=== PATIENT | female | born 1955 | race Caucasian/White ===

== ENCOUNTER 2025-11-02 15:10 | Outpatient (AMB) | payer OTHER, SELFPAY ==
--- NOTE | 2025-11-02 15:12 | A.PHYSOV_ITS ---
Vital Signs 11/02/25 15:16 Height 5 ft 1 in Weight 130 lb BMI 24.6 Intake Visit Reasons: 3M FUV Intake Note: Patient is a 70 year old female in office today for 3 month medication management visit. Mail Messenger Contractor Required: No Allergies adhesive tape Allergy (Unknown, Verified 11/02/25 15:16) Unknown Latex, Natural Rubber Allergy (Unknown, Verified 10/30/25 10:52) Unknown Penicillins Allergy (Unknown, Verified 10/30/25 10:52) Unknown HPI Comments Details: History of Present Illness The patient is a 70-year-old female presenting for a follow-up visit for chronic pain management. She has a history of chronic bilateral leg pain, which is worse in the left leg than the right, and she relies on a wheelchair for ambulation. Her pain is managed with oxycodone, which she reports is helpful and has improved her quality of life and ability to perform activities of daily living. Her overall condition is stable. She also takes gabapentin, which is prescribed by her primary care provider. She has an ultrasound scheduled for her legs in two weeks to evaluate her circulation, with a follow-up appointment with a vascular specialist the following week. At this time, no surgery has been planned. Pain Description - Location: Bilateral legs, greater on the left than the right. - Interferes with: Ambulation, for which she uses a wheelchair. - Relief: Oxycodone improves her pain, quality of life, and ability to perform activities of daily living. Results [facility] Medical History (Updated 11/02/25 @ 16:09 by Dillon Batista DO) Complex regional pain syndrome I of lower limb Chronic pain syndrome Surgical History (Updated 10/30/25 @ 10:55 by Graciela Quintana MA) History of dktht-bbzuw-juxsjvw bypass (Unknown) History of lumpectomy (Unknown) Social History (Updated 11/02/25 @ 15:20 by Graciela Quintana MA) Alcohol intake: current Alcohol intake frequency: does not drink Patient Tobacco Use Status: Current everyday Tobacco user Use of substances other than those prescribed or required for medical reasons: No Current occupational status: retired Review of Systems Narrative Review of Systems - Constitutional: Denies worsening sedation. - Musculoskeletal: Reports bilateral leg pain, worse on the left. - Gastrointestinal: Reports regular bowel movements; denies any change in bowel habits. - Genitourinary: Denies any change in bladder habits. - Psychiatric: Denies depression or suicidal ideation. Physical Exam Exam Exam: Physical Exam Patient was examined while sitting. Her gait was not really tested. She was able to independently transfer from chair to wheelchair. Neurologically she was intact. I could not appreciate any lower extremity edema or erythema. Vital Signs: BMI result Body Mass Index 24.6 Assessment & Plan Assessment & Plan (1) Chronic pain syndrome: Code(s): G89.4 - Chronic pain syndrome Category: Medical (2) Complex regional pain syndrome I of lower limb: Code(s): G90.529 - Complex regional pain syndrome I of unspecified lower limb Category: Medical Plan Pain Management - Analgesia: The patient reports her medications are helping and her condition is stable. - Activities of Daily Living: Her prescribed oxycodone improves her ability to perform activities of daily living. - Adverse Effects: The patient denies worsening sedation and reports regular bowel movements without any changes to bowel or bladder habits. - Affect: The patient denies depression or suicidal ideation. - Aberrant Drug-Related Behaviors: There are no signs of aberrant behavior; a prescription monitoring report will be checked prior to refill. Plan Patient was informed and verbally consented to the use of an ambient scribe for clinic note documentation during this visit. 1. Chronic Pain The patient's chronic pain is stable on her current regimen. She will continue oxycodone 5/325 mg. A refill will be sent today, but she was advised it cannot be filled until November 19, 2025. A prescription monitoring report will be checked. Follow-up is scheduled for January. 2. Bilateral Leg Pain The patient will proceed with an ultrasound of her legs for circulation in two weeks, followed by a vascular consultation the week after. Management will be determined pending the results of this workup. Discussion Notes I discussed with the patient that her condition appears stable and her medications are effective. I will send a refill for her oxycodone today, as I will be away when it is due for renewal. I advised her that the pharmacy will not be able to fill it before November 19. We discussed her upcoming vascular workup, including a leg ultrasound and specialist consultation, to investigate her circulation issues. I recommended she follow up in the clinic in January. Patient Instructions - Continue to take your pain medications as prescribed. - A prescription for your oxycodone will be sent to your pharmacy today, but you will not be able to pick it up until November 19. - Please check with your pharmacy to make sure they have received the electronic prescription. - Please attend your upcoming appointments for the leg ultrasound and the visit with the vascular specialist. - Please schedule a follow-up appointment to be seen here again in January. Medications: New oxycodone-acetaminophen 5-325 mg Partial fill upon request 1 tab PO TID PRN 84 tabs 0RF pain 28 days G89.4 - Chronic pain syndrome, G90.529 - Complex regional pain syndrome I of unspecified lower limb Coding Level of Care Code Est Pt Level 3 (30427) Complex visit Add On G2211 Diagnoses Chronic pain syndrome G89.4 Complex regional pain syndrome I of lower limb G90.529
[2025-11-02 15:16] VITALS: BMI 24.6
--- OUTSIDE RECORDS SUMMARY | 2025-11-02 21:21 | XMS_ITS | Clinical Summary ---
Author Organization [address] [place] [address] Address [address] [place] [address] Phone Care Team Providers Care Physical Security Specialist Name Role Phone Tyrell Massey MD Primary Care Provider [phone] Allergies Active Allergy Reactions Criticality Noted Date Comments Adhesive Tape-Silicones 06/01/2025 Medical tape Latex 09/07/2018 Penicillins 09/07/2018 Medications oxyCODONE-acet aminophen (PERCOCET) 5-325 mg per tablet Take 1 tablet by mouth every 4 (four) hours. Active rosuvastatin (CRESTOR) 40 mg tablet Take 40 mg by mouth daily. Active calcium carbonate/jazmine min D3 (CALCIUM 600 + D,3, ORAL) Take by mouth. Acti ve lidocaine 0.5% (SOLARCAINE) 0.5 % gel external gel Apply topically. Active sertraline (ZOLOFT) 100 mg tablet Take 100 mg by mouth daily. Active cilostazoL (PLETAL) 100 mg tablet Take 100 mg by mouth 2 times daily. Active clopidogreL (PLAVIX) 75 mg tablet Take 75 mg by mouth daily. Active gabapentin (NEURONTIN) 600 mg tablet Take 1 tablet (600 mg total) by mouth 1 (one) time each day in the morning. Active gabapentin (NEURONTIN) 600 mg tablet Take 2 tablets (1,200 mg total) by mouth at bedtime. Active tiotropium-olo dateroL (Stiolto Respimat) 2.5-2.5 mcg/actuation mist inhaler Inhale 2 puffs by mouth 1 (one) time each day. 4 g 12 5 06/16/20 26 Active nicotine (Nicoderm CQ) 21 mg/[address] 1 patch on the skin 1 (one) time each day at the same time. 14 each 5 Active nicotine (Nicoderm CQ) 14 mg/[address] 1 patch on the skin 1 (one) time each day at the same time. 14 each 5 Active nicotine (Nicoderm CQ) 7 mg/[address] 1 patch on the skin 1 (one) time each day at the same time. 28 each 5 Active nicotine polacrilex (COMMIT) 4 mg lozenge Dissolve 1 lozenge (4 mg total) in the mouth every 2 (two) hours if needed for smoking cessation. 100 lozenge 5 Active metoprolol succinate (TOPROL-XL) 25 mg 24 hr tablet TAKE 1 TABLET BY MOUTH DAILY 90 tablet 1 5 Active ezetimibe (ZETIA) 10 mg tablet TAKE 1 TABLET BY MOUTH DAILY 90 tablet 5 Active naloxone (Narcan) 4 mg/0.1 mL nasal spray Administer 1 each (4 mg total) into affected nostril(s). Give 4 mg (1 spray) into one nostril. May repeat every 2-3 minutes if needed, alternating nostrils, until medical assistance becomes available. Active tiotropium (Spiriva Respimat) 2.5 mcg/actuation inhalation spray Inhale 2 puffs by mouth 1 (one) time each day. Active albuterol HFA (PROAIR HFA ; PROVENTIL HFA ; VENTOLIN HFA) 90 mcg/actuation inhalerIndicat ions:Chronic cough,SOB (shortness of breath),Mucopu rulent chronic bronchitis (CMS/HCC V24, CMS/HCC V28) Inhale 2 puffs by mouth every 6 (six) hours if needed for wheezing. 6.7 g 2 5 10/06/20 26 Active albuterol HFA (PROAIR HFA ; PROVENTIL HFA ; VENTOLIN HFA) 90 mcg/actuation inhaler Inhale 2 puffs by mouth every 6 (six) hours if needed for wheezing. 10/06/20 25 Discontin ued(Alter doris therapy) Active Problems Problem Noted Date Diagnosed Date Bipolar disorder ([facility] V24, [facility] V28) 08/31 Chronic pain 09/24/2023 HLD (hyperlipidemia) 09/24/2023 Assessment & Plan (10/14/2024 2:41 PM EST): She will continue on her current dose of Zetia and rosuvastatin. Opiate dependence, continuous ([facility], [facility]) 09/24/2023 SVT (supraventricular tachycardia) ([facility] V24) 09/24/2023 Assessment & Plan (10/17/2025 1:40 PM EST): Orders: ECG 12 lead Assessment & Plan (10/14/2024 2:41 PM EST): Denies perception of recurrence of arrhythmia. The only reason she knew that she was in SVT is because she had been taking her blood pressure. We did discuss vagal maneuvers should she experience episode of SVT again. In light of her being asymptomatic during her arrhythmia, I am going to update 24-hour monitor to further evaluate for burden. Also will order echocardiogram to further evaluate LVEF and whether or not SVT has impacted her pumping function. Patient continues to smoke and drink coffee. She admits she does not stay hydrated. We again discussed the importance of being mindful of her caffeine and alcohol intake as well as her hydration status. Orders: ECG 12 lead Transthoracic echocardiogram (TTE) complete with PRN contrast, bubble, strain, and 3D order panel; Future perflutren lipid microsphere (DEFINITY) 1.3 mL in sodium chloride 0.9% 8.7 mL injection Cardiac holter monitor (<= 48 hours); Future PVD (peripheral vascular disease) ([facility] V24) 08/06/2018 Assessment & Plan (10/17/2025 1:51 PM EST): Assessment & Plan (10/14/2024 2:41 PM EST): On cilostazol. Continues to follow closely with vascular services. Patient historically has had a chairlift at home. Unfortunately, this is no longer in working order. Due to the age of the machine, she is unable to get parts. Patient is unable to walk long distances and has used a wheelchair to get into our office today. She is unable to climb stairs while carrying items such as groceries as her legs will give out in light of her significant PVD. Orders: perflutren lipid microsphere (DEFINITY) 1.3 mL in sodium chloride 0.9% 8.7 mL injection History of DVT (deep vein thrombosis) Encounters Date Type Department Care Team Description 10/17/2025 1:00 PM EST Office Visit [facility] - [facility] [address] [facility] [address] [place] [phone] Arcadio Justice MD SVT (supraventricular tachycardia) ([facility] V24) (Primary Dx); Coronary artery disease due to calcified coronary lesion; PVD (peripheral vascular disease) ([facility] V24) 10/06/2025 11:30 AM EST Office Visit Pulmonology - [place] [address] [facility] [address] [place] [address] Nirali Jones MD Chronic cough (Primary Dx); SOB (shortness of breath); Mucopurulent chronic bronchitis ([facility] V24, [facility] V28) 09/27/2025 Telephone Gastroenterology - [address] [place] [address] [address] [place] [phone] Eric Ramos MD 09/15/2025 Telephone Pulmonology - [place] [address] [facility] [address] [place] [phone] Sharee Vargas MA from Last 3 Months Medical History Medical History Date Comments PVD (peripheral vascular disease) ([facility] V24) 08/06/2018 Hyperlipidemia Sleep apnea PAD (peripheral artery disease) ([facility] V24) Glaucoma Family History Medical History Relation Name Comments Breast cancer Mother Ovarian cancer Mother palpitations Mother Relation Name Status Comments Mother Social History Tobacco Use Types Packs/Day Years Used Date Smoking Tobacco: Every Day Cigarettes Smokeless Tobacco: Never Tobacco Cessation:Ready to Q uit: Not Asked; Counseling Given: Not Answered Comments:Smokes 10-15 cigarettes daily Alcohol Use Standard Drinks/Week Comments Not Currently 0 (1 standard drink = 0.6 oz pur e alcohol) Interpersonal Safety Answer Date Record ed Physical Abuse Unrecognized value 06/07/2025 Verbal Abuse Unrecognized value 06/07/2025 Comments No Sex and Gender Information Value Date Recorded Sex Assigned at Female 05/29/2025 3:37 PM EDT Legal Sex Female 1:53 PM EST Gender Identity Female 06/07/2025 8:20 AM EDT Sexual Orientation Choose not to disclose 2024 8:20 AM EDT Obstetrics History Last Filed Vital Signs Vital Sign Reading Time Taken Comments Blood Pressure 130/70 10/17/2025 1:06 PM EST Pulse 58 10/17/2025 1:06 PM EST Temperature 36.7 C (98.1 F) 06/16/2025 11:06 AM EDT Respiratory Rate 18 06/07/2025 11:25 AM EDT Oxygen Saturation 93% 10/17/2025 1:06 PM EST Inhaled Oxygen Concentration - - Weight 59 kg (130 lb) 10/17/2025 1:06 PM EST Height 154.9 cm (5' 1 ) 10/17/2025 1:06 PM EST Body Mass Index 24.56 10/17/2025 1:06 PM EST Plan of Treatment Upcoming Encounters Date Type Department Care Team (Late st Contact Info) Description 11/06/2025 1:45 PM EST Appointment [facility] CT Scan [address] [place] [phone] 11/16/2025 1:30 PM EST Ancillary Procedure [facility] - [facility] [address] [facility] [address] [place] [address] 11/24/2025 11:30 AM EST Office Visit Vascular Surgery - [place] [address] [facility] [address] [place] [phone] Selvin Damico MD [address] [place] [phone] Health Maintenance Due Date Last Done Comments Colorectal Cancer Screening: Colonoscopy 1955 Hepatitis A Vaccines (1 of 2 - Risk 2-dose series) 1972 Cholesterol Screening (Lipid Panel) 11/08/2022 Hepatitis C Screening 11/08/2022 Medicare Annual Wellness Visit 11/08/2022 Social Influencers of Health Screening 11/08/2022 Depression Screening 11/30/2024 COVID-19 Vaccine ( season) 2025 09/30/2024, 09/11/2023, 10/02/2022, Additional history exists Breast Cancer Screening 10/28/2025 10/28/2023 Hypertension/CHF/CAD Annual BMP Blood Test 06/05/2026 06/05/2025 Falls Risk Assessment 06/07/2026 06/07/2025 Osteoporosis Screening (Bone Density Screening) 03/18/2028 03/18/2018 DTaP,Tdap,and Td Vaccines (3 - Td or Tdap) 10/30/2033 10/30/2023, 04/03/2014 Pneumococcal Vaccine: 50+ Years Completed 09/12/2021, 08/17/2020, 09/26/2019, Additional history exists RSV Immunization Adult Patients Completed 10/05/2023 Zoster Vaccines Completed 10/30/2023, 06/30, 06/01/2017 Influenza Vaccine Completed 09/26/2025, , 09/11/2023, Additional history exists HIB Vaccines Aged Out No longer eligi ble based on patient's age to complete this topic HPV Vaccines Aged Out No longer eligi ble based on patient's age to complete this topic Hepatitis B Vaccines Aged Out No long er eligible based on patient's age to complete this topic IPV Vaccines Aged Out No longer eligi ble based on patient's age to complete this topic MMR Vaccines Aged Out No longer eligi ble based on patient's age to complete this topic Meningococcal ACWY Vaccine Aged Out N o longer eligible based on patient's age to complete this topic Meningococcal B Vaccine Aged Out No l onger eligible based on patient's age to complete this topic RSV Immunization Patients Under 20 months Aged Out No longer eligible based on patient's age to complete this topic Varicella Vaccines Aged Out No longer eligible based on patient's age to complete this topic Procedures Procedure Name Priority Date/Time Associated Diagnosis Comments ECG 12-LEAD Routine 10/17/2025 1:11 PM EST SVT (supraventricular tachycardia) (CMS/HCC V24) BASIC METABOLIC PANEL Routine 06/05/2025 2:40 PM EDT Chronic cough from Last 3 Months or Most Recently Relevant to Health Maintenance Results * ECG 12 lead (10/17/2025 1:11 PM EST) Ventricular Rate ECG 58 BPM GEMUSE Atrial Rate 58 BPM GEMUSE P-R Interval 164 ms GEMUSE QRS Duration 82 ms GEMUSE Q-T Interval 452 ms GEMUSE QTc 443 ms GEMUSE P Wave [place] 75 degrees GEMUSE R [place] -18 degrees GEMUSE T [place] 49 degrees GEMUSE ECG Interpretation Sinus bradycardia with sinus arrhythmia Septal infarct (cited on or before 17-OCT-2025) Abnormal ECG When compared with ECG of 14-OCT-2024 13:37, No significant change was found Confirmed by MD Vinh, Arcadio ([id number]) on 10/17/2025 2:08:20 PM GEMUSE 10/17/2025 1:11 PM EST 10/17/2025 2:08 PM EST us Arcadio Justice MD ECG ORDERABLES Final Res ult GEMUSE * Basic metabolic panel (06/05/2025 2:40 PM EDT) Sodium 138 133 - 145 mmol/L LAB CHEMISTRY METHOD 06/05/2025 3:46 PM EDT [facility] Potassium 3.5 3.5 - 5.5 mmol/L LAB CHEMISTRY METHOD 06/05/2025 3:46 PM EDT [facility] Chloride 107 96 - 110 mmol/L LAB CHEMISTRY METHOD 06/05/2025 3:46 PM EDT [facility] CO2 23 21 - 32 mmol/L LAB CHEMISTRY METHOD 06/05/2025 3:46 PM EDT [facility] Anion Gap 8 3 - 11 LAB CHEMISTRY METHOD 06/05/2025 3:46 PM EDT [facility] Glucose 92 70 - 100 mg/dL LAB CHEMISTRY METHOD 06/05/2025 3:46 PM EDT [facility] BUN 15 5 - 25 mg/dL LAB CHEMISTRY METHOD 06/05/2025 3:46 PM EDT [facility] Creatinine 0.72 0.50 - 1.10 mg/dL LAB CHEMISTRY METHOD 06/05/2025 3:46 PM EDT [facility] eGFR 89 >=60 mL/min/1. 73m2 LAB CHEMISTRY METHOD 06/05/2025 3:46 PM EDT [facility] Comment:Calculation based on the Chronic Kidney Disease Epidemiology Collaboration (CKD-EPI) equation refit without adjustment for race. BUN/Creatinine Ratio 20.8 LAB CHEMISTRY METHOD 06/05/2025 3:46 PM EDT [facility] Calcium 9.5 8.5 - 10.5 mg/dL LAB CHEMISTRY METHOD 06/05/2025 3:46 PM EDT [facility] Blood Venous blood specimen / Unknown Venipuncture / Unknown 06/05/2025 2:40 PM EDT 06/05/2025 2:49 PM EDT Nirali Jones MD LAB BLOOD ORDERABLES Final Result [facility] [address] [place] [address], from Last 3 Months or Most Recently Relevant to Health Maintenance Insurance [employer] [address] [place] [address] MEDICAID [place] Advance Directives * Full Code - Default (Latest Code Status on File) Date Activated Date Inactivated Comments 06/07/2025 9:04 AM 06/07/2025 2:12 PM This is order is used when code status has not been discussed with the patient, or code status is otherwise unknown/unconfirmed To update the patient's code status, place a code status order. Do not modify or discontinue any currently active code status orders. Care Teams Physical Security Specialist Relationship Specialty Start Date End Date Tyrell Massey MD [address] [facility] [address] [place] [phone] PCP - General 09/20/21
--- OUTSIDE RECORDS SUMMARY | 2025-11-02 21:22 | XMS_ITS | Data Portability ---
Author Organization [facility], Main Office Address [address] [facility] [address] [facility] [place] [address] Care Team Providers Care Certified Lactation Educator Name Role Phone GARRETT GUTIERREZ Pecan Picker [employer] Heat Pump Installer PRANAV GARRETT Wood Stainer [facility] Heating Element Repairer OCTAVIA GARZA Vascular Surgeon SHEREEN MASSEY Primary Care Provider S V PAIN MANAGEMENT Pain Management [phone] Assessment Encounter Date Assessment Date Assessment LastModified by Organization Details LastModified Time 09/04/2023 09/04/2023 This service was provided using telemedicine. Patient consented to video & audio visit Patient was located in the [facility]. Provider was located in the office. No other persons participated in the telemedicine visit except for the patient unless otherwise indicated here. Total time of visit was 20 minutes. [email or web address] Not available 09/04/2023 16:44:22 08/12/2024 08/12/2024 Discussed with patient the signs/symptoms warranted for a return to office visit and/or an ER visit. Patient understood and agreed with the plan. Not available 08/12/2024 13:35:48 Plan of Treatment Reminders Order Date Submit Date Provider Last Modified By Organization Details Last Modified Time Details Appointments None recor ded. Lab CBC w/ auto diff 2024 025 [email or web address] [facility], [address] [facility] [facility], [place], [address], 5 12:36:56 TSH, ultra -sens itive , serum [address] [facility], [address], [address], [place], [address], 5 12:36:56 lipid panel , serum 2024 025 [email or web address] [facility], [address], [address], [place], [address], 5 13:52:47 CMP, serum or plasm a 2024 025 [email or web address] [facility], [address], [address], [place], [address], 5 12:36:56 vitam in D, 25-hy droxy , total , serum [address] [facility], [address], [address], [place], [address], 5 12:36:56 urina lysis compl ete, refle x cultu re 2024 025 [email or web address] (Centralized Electronic Ordering - All Locations), Patient Can Go To The Location Of Their Choice, [id number] 12:36:57 vitam in D, 25-hy droxy , total , serum 2023 024 MALORIE [facility], [address], [address], [place], [address], 4 12:06:53 lipid panel , serum 2023 024 MALORIE [facility], [address], [address], [place], [address], 4 12:06:52 CMP, serum or plasm a 2023 024 MALORIE [facility], [address], [address], [place], [address], 4 12:06:52 CBC w/ auto diff 2023 024 MALORIE [facility], [address], [address], [place], [address], 4 12:06:49 TSH, ultra -sens itive , serum 2023 024 MALORIE [facility], [address], [address], [place], [address], 4 12:06:54 lipid panel , serum 2022 023 MALORIE [facility], [address], [address], [place], [address], 3 19:53:48 CMP, serum or plasm a 2022 023 MALORIE [facility], [address], [address], [place], [address], 3 19:53:47 CBC w/ auto diff 2022 023 MALORIE [facility], [address], [address], [place], [address], 3 19:53:56 TSH, serum or plasm a 2022 023 MALORIE [facility], [address], [address], [place], [address], 3 20:04:47 magne sium, serum or plasm a 2022 023 MALORIE [facility], [address], [address], [place], [address], 3 19:53:49 Referral physi nino thera pist refer ral - At risk for falli ng 2024 025 [email or web address] Not available 14:18:12 gastr louann torrezog ist refer ral - Needs colon cance r tyee cheko 2024 025 [email or web address] [facility], [address] [place], [address], 5 14:19:05 gastr louann torrezog ist refer ral - Needs colon cance r scree cheko 2023 024 [email or web address] [facility] , [address], [facility], [place], [address], 4 15:05:08 physi nino thera pist refer ral - At risk for falli ng 2022 023 [email or web address] [facility], [address], [place], [address], 3 15:51:[address] refer ral 2022 023 [email or web address] Not available 3 14:14:29 Procedures colon oscop y tien cheko (PROC ) 2024 025 [email or web address] [facility], [address] [place], [address], 5 14:27:16 colon oscop y scree cheko (PROC ) 2023 024 In-Office Order, Internal Use Only DO Not Attach Compendium DO Not Attach Compendium, Do Not Delete/merge, [id number] 4 14:48:31 Surgeries None recor ded. Imaging bone densi ty 2024 025 [facility], [address], [address], [place], [address], 5 12:36:57 MAMMO , scree cheko, bilat eral - Perfo rm Diagn ostic Mammo gram and Breas t Ultra sound if neede d / Perfo rm Ultra sound Guide d Aspir ation and/o r Breas t Biops y if warra nted 2024 025 [email or web address] [facility], [address], [address], [place], [address], 5 12:36:56 elect rocar diogr am 2023 024 [email or web address] In-Office Order, Internal Use Only DO Not Attach Compendium DO Not Attach Compendium, Do Not Delete/merge, [id number] 4 13:55:53 bone densi ty 2022 023 [email or web address] os [facility], [address], [address], [place], [address], 3 16:58:32 MAMMO , scree cheko, bilat eral 2022 023 [email or web address] os [facility], [address], [address], [place], [address], 4 12:04:13 Medication Orders None recor ded. Patient TargetsNo targets recorded. Patient Instructions Encounter Date Encounter Id Patient Instructions Last Modified By Organization Details Last Modified Time 07/03/2023 [id number] advance care planning: care instructions [email or web address] Not available 07/03/2023 13:50:28 well visit, over 65: care instructions [email or web address] Not available 07/03/2023 13:50:27 preventing falls : care instructions [email or web address] Not available 07/03/2023 13:50:27 medicare prevent shawn services guide (female 74yrs and under) [email or web address] Not available 07/03/2023 13:50:27 07/05/2024 [id number] advance care planning: care instructions [email or web address] Not available 07/05/2024 13:37:49 learning about c olon cancer ckokar Not available 07/05/2024 13:37:49 well visit, over 65: care instructions [email or web address] Not available 07/05/2024 13:37:49 preventing falls : care instructions ckokar Not available 07/05/2024 13:37:50 medicare prevent shwan services guide (female 74yrs and under) [email or web address] Not available 07/05/2024 13:37:49 08/12/2024 [id number] supraventricular tachycardia: care instructions Not available 08/12/2024 13:51:00 09/26/2025 [id number] advance care planning: care instructions ckokar Not available 09/26/2025 12:36:56 complex regional pain syndrome: care instructions ckokar Not available 09/26/2025 12:36:57 preventing falls : care instructions [email or web address] Not available 09/26/2025 12:36:56 well visit, over 65: care instructions ckokar Not available 09/26/2025 12:36:56 medicare prevent shawn services guide (female 74yrs and under) [email or web address] Not available 09/26/2025 12:36:56 bladder training : care instructions [email or web address] Not available 09/26/2025 12:36:57 kegel exercises: care instructions ckokar Not available 09/26/2025 12:36:57 Stress Incontine nce: Care Instructions [email or web address] Not available 09/26/2025 12:36:57 Urge Incontinenc e: Care Instructions [email or web address] Not available 09/26/2025 12:36:57 learning about c olon cancer guzman Not available 09/26/2025 12:36:56 Reason for Referral Physical Therapist Referral for Adult health examination At risk for falling Referring Physician: [facility], Encounter Date: 07/03/2023 Psychologist Referral for Ma ayesha depression single episode, in partial remission Referring Physician: [facility], Encounter Date: 07/03/2023 Heating Element Repairer Referral for Screening for malignant neoplasm of colon Needs colon cancer screening Referring Physician: Family Kalani Morrison, Encounter Date: 07/05/2024 Physical Therapist Referral for Adult health examination At risk for falling Referring Physician: Family Kalani Morrison, Encounter Date: 09/26/2025 Heating Element Repairer Referral for Screening for malignant neoplasm of colon Needs colon cancer screening Referring Physician: Shereen Massey, Family Medicine, Encounter Date: 09/26/2025 Results Created Date Observation Date Name Description Value Unit Range Abnormal Flag Note LastModifiedBy Organization Detail LastModifiedTime 07/03/2007/03/2023 COMPR EHENS SHAWN METAB OLIC PANL glucose 94 mg/dL (70-99 ) Not Available [facility] (Centralized Electronic Ordering - All Locations) Patient Can Go To The Location Of Their Choice, 07/03/2023 19:53:46 07/03/2007/03/2023 COMPR EHENS SHAWN METAB OLIC PANL BUN 11 mg/dL (8-23) Not Available [facility] (Centralized Electronic Ordering - All Locations) Patient Can Go To The Location Of Their Choice, 07/03/2023 19:53:46 07/03/2007/03/2023 COMPR EHENS SHAWN METAB OLIC PANL creatinine 0.6 mg/dL (0.5-1 .0) Not Available [facility] (Centralized Electronic Ordering - All Locations) Patient Can Go To The Location Of Their Choice, 07/03/2023 19:53:46 07/03/2007/03/2023 COMPR EHENS SHAWN METAB OLIC PANL sodium 140 mmol/ L (133-1 45) Not Available [facility] (Centralized Electronic Ordering - All Locations) Patient Can Go To The Location Of Their Choice, 07/03/2023 19:53:46 07/03/2007/03/2023 COMPR EHENS SHAWN METAB OLIC PANL potassium 4.1 mmol/ L (3.6-5 .2) Not Available [facility] (Centralized Electronic Ordering - All Locations) Patient Can Go To The Location Of Their Choice, 07/03/2023 19:53:46 07/03/2007/03/2023 COMPR EHENS SHAWN METAB OLIC PANL chloride 103 mmol/ L (98-10 7) Not Available [facility] (Centralized Electronic Ordering - All Locations) Patient Can Go To The Location Of Their Choice, 07/03/2023 19:53:46 07/03/2007/03/2023 COMPR EHENS SHAWN METAB OLIC PANL bicarbonate 23 mmol/ L (22-29 ) Not Available [facility] (Centralized Electronic Ordering - All Locations) Patient Can Go To The Location Of Their Choice, 07/03/2023 19:53:46 07/03/2007/03/2023 COMPR EHENS SHAWN METAB OLIC PANL anion gap 14 (4-17) Not Available [facility] (Centralized Electronic Ordering - All Locations) Patient Can Go To The Location Of Their Choice, 07/03/2023 19:53:46 07/03/2007/03/2023 COMPR EHENS SHAWN METAB OLIC PANL albumin 4.4 gm/dL (3.4-4 .8) Not Available [facility] (Centralized Electronic Ordering - All Locations) Patient Can Go To The Location Of Their Choice, 07/03/2023 19:53:46 07/03/2007/03/2023 COMPR EHENS SHAWN METAB OLIC PANL calcium 10.0 mg/dL (8.6-1 0.5) Not Available [facility] (Centralized Electronic Ordering - All Locations) Patient Can Go To The Location Of Their Choice, 07/03/2023 19:53:46 07/03/2007/03/2023 COMPR EHENS SHAWN METAB OLIC PANL bilirubin,to kofi 0.3 mg/dL (0-1.2 ) Not Available [facility] (Centralized Electronic Ordering - All Locations) Patient Can Go To The Location Of Their Choice, 07/03/2023 19:53:46 07/03/2007/03/2023 COMPR EHENS SHAWN METAB OLIC PANL total protein 7.6 gm/dL (6.2-8 .2) Not Available [facility] (Centralized Electronic Ordering - All Locations) Patient Can Go To The Location Of Their Choice, 07/03/2023 19:53:46 07/03/2007/03/2023 COMPR EHENS SHAWN METAB OLIC PANL Ag ratio 1.4 Not Available [facility] (Centralized Electronic Ordering - All Locations) Patient Can Go To The Location Of Their Choice, 07/03/2023 19:53:46 07/03/2007/03/2023 COMPR EHENS SHAWN METAB OLIC PANL AST 16 U/L (0-32) Not Available [facility] (Centralized Electronic Ordering - All Locations) Patient Can Go To The Location Of Their Choice, 07/03/2023 19:53:46 07/03/2007/03/2023 COMPR EHENS SHAWN METAB OLIC PANL alk phos 121 U/L (35-10 4) high Not Available [facility] (Centralized Electronic Ordering - All Locations) Patient Can Go To The Location Of Their Choice, 07/03/2023 19:53:46 07/03/2007/03/2023 COMPR EHENS SHAWN METAB OLIC PANL ALT 9 U/L (0-33) Not Available [facility] (Centralized Electronic Ordering - All Locations) Patient Can Go To The Location Of Their Choice, 07/03/2023 19:53:46 07/03/2007/03/2023 COMPR EHENS SHAWN METAB OLIC PANL estimated GFR creatinine 96 mL/mi n/1.7 3_M2 Creat inine based estim ated glome rular filtr ation (eGFR ) in adult s is calcu lated using the Natio nal Kidne y Found ation recom justice d 2020 CKD-E PI equat ion. Estim ates GFR from serum creat inine , age and sex. Not Available [facility] (Centralized Electronic Ordering - All Locations) Patient Can Go To The Location Of Their Choice, 07/03/2023 19:53:46 07/03/2007/03/2023 LIPID PANEL cholesterol, total 156 mg/dL (<200) Not Available [facility] ([facility] Order[facility] - All Locations) Patient Can Go To The Location Of Their Choice, 07/03/2023 19:53:48 07/03/2007/03/2023 LIPID PANEL triglyceride 131 mg/dL (<150) Not Available [facility] ([facility] - All Locations) Patient Can Go To The Location Of Their Choice, 07/03/2023 19:53:48 07/03/2007/03/2023 LIPID PANEL HDL chol 50 mg/dL (>39) Not Available [facility] ([facility] Electronic Ordering - All Locations) Patient Can Go To The Location Of Their Choice, 07/03/2023 19:53:48 07/03/2007/03/2023 LIPID PANEL LDL cholesterol, calculated 80 mg/dL (0-130 ) Not Available [facility] ([facility] Electronic Ordering - All Locations) Patient Can Go To The Location Of Their Choice, 07/03/2023 19:53:48 07/03/2007/03/2023 LIPID PANEL non HDL cholesterol (calc) 106 mg/dL (<160) Not Available [facility] ([facility] Order[facility] - All Locations) Patient Can Go To The Location Of Their Choice, 07/03/2023 19:53:48 07/03/2007/03/2023 MAGNE SIUM magnesium 2.5 mg/dL (1.6-2 .3) high Not Available [facility] ([facility] Electronic Ordering - All Locations) Patient Can Go To The Location Of Their Choice, 07/03/2023 19:53:49 07/03/2007/03/2023 COMPL ETE CBC WITH DIFF WBC 11.7 K/mm3 (4.0-1 1.0) high Not Available [facility] ([facility] Electronic Ordering - All Locations) Patient Can Go To The Location Of Their Choice, 07/03/2023 19:53:56 07/03/2007/03/2023 COMPL ETE CBC WITH DIFF RBC 5.12 M/mm3 (4.20- 5.40) Not Available [facility] ([facility] Electronic Ordering - All Locations) Patient Can Go To The Location Of Their Choice, 07/03/2023 19:53:56 07/03/2007/03/2023 COMPL ETE CBC WITH DIFF HGB 15.4 gm/dL (11.7- 15.5) Not Available [facility] ([facility] Ordering - All Locations) Patient Can Go To The Location Of Their Choice, 07/03/2023 19:53:56 07/03/2007/03/2023 COMPL ETE CBC WITH DIFF HCT 48.0 % (35.7- 45.8) high Not Available [facility] ([facility] Ordering - All Locations) Patient Can Go To The Location Of Their Choice, 07/03/2023 19:53:56 07/03/2007/03/2023 COMPL ETE CBC WITH DIFF MCV 93.8 fL (80.0- 100.0) Not Available [facility] ([facility] Ordering - All Locations) Patient Can Go To The Location Of Their Choice, 07/03/2023 19:53:56 07/03/2007/03/2023 COMPL ETE CBC WITH DIFF MCH 30.1 pg (27.0- 34.0) Not Available [facility] ([facility] Ordering - All Locations) Patient Can Go To The Location Of Their Choice, 07/03/2023 19:53:56 07/03/2007/03/2023 COMPL ETE CBC WITH DIFF MCHC 32.1 g/dL (33.0- 37.0) low Not Available [facility] ([facility] Order[facility] - All Locations) Patient Can Go To The Location Of Their Choice, 07/03/2023 19:53:56 07/03/2007/03/2023 COMPL ETE CBC WITH DIFF plt 391 K/mm3 (150-4 60) Not Available [facility] ([facility] Ordering - All Locations) Patient Can Go To The Location Of Their Choice, 07/03/2023 19:53:56 07/03/2007/03/2023 COMPL ETE CBC WITH DIFF RDW-SD 51.2 fL (<47.0 ) high Not Available [facility] ([facility] Ordering - All Locations) Patient Can Go To The Location Of Their Choice, 07/03/2023 19:53:56 07/03/2007/03/2023 COMPL ETE CBC WITH DIFF MPV 9.1 fL (9.4-1 2.4) low Not Available [facility] ([facility] Ordering - All Locations) Patient Can Go To The Location Of Their Choice, 07/03/2023 19:53:56 07/03/2007/03/2023 COMPL ETE CBC WITH DIFF automated NRBC 0.0 #/100 _WBC' s Not Available [facility] ([facility] Ordering - All Locations) Patient Can Go To The Location Of Their Choice, 07/03/2023 19:53:56 07/03/2007/03/2023 COMPL ETE CBC WITH DIFF abs. NRBC 0.0 K/mm3 Not Available [facility] ([facility] Order[facility] - All Locations) Patient Can Go To The Location Of Their Choice, 07/03/2023 19:53:56 07/03/2007/03/2023 COMPL ETE CBC WITH DIFF neut # 7.5 K/mm3 (1.3-7 .0) high Not Available [facility] ([facility] Order[facility] - All Locations) Patient Can Go To The Location Of Their Choice, 07/03/2023 19:53:56 07/03/2007/03/2023 COMPL ETE CBC WITH DIFF lymph # 3.3 K/mm3 (0.8-3 .1) high Not Available [facility] ([facility] Order[facility] - All Locations) Patient Can Go To The Location Of Their Choice, 07/03/2023 19:53:56 07/03/2007/03/2023 COMPL ETE CBC WITH DIFF mono# 0.7 K/mm3 (0.4-0 .9) Not Available [facility] ([facility] Order[facility] - All Locations) Patient Can Go To The Location Of Their Choice, 07/03/2023 19:53:56 07/03/2007/03/2023 COMPL ETE CBC WITH DIFF eo # 0.1 K/mm3 (0.0-0 .4) Not Available [facility] ([facility] Order[facility] - All Locations) Patient Can Go To The Location Of Their Choice, 07/03/2023 19:53:56 07/03/2007/03/2023 COMPL ETE CBC WITH DIFF baso # 0.1 K/mm3 (0.0-0 .1) Not Available [facility] ([facility] Order[facility] - All Locations) Patient Can Go To The Location Of Their Choice, 07/03/2023 19:53:56 07/03/2007/03/2023 COMPL ETE CBC WITH DIFF abs. imm gran 0.0 K/mm3 Not Available [facility] ([facility] - All Locations) Patient Can Go To The Location Of Their Choice, 07/03/2023 19:53:56 07/03/2007/03/2023 COMPL ETE CBC WITH DIFF neut 64.2 % (44-76 ) Not Available [facility] ([facility] Order[facility] - All Locations) Patient Can Go To The Location Of Their Choice, 07/03/2023 19:53:56 07/03/2007/03/2023 COMPL ETE CBC WITH DIFF lymph 28.1 % (15-43 ) Not Available [facility] ([facility] Order[facility] - All Locations) Patient Can Go To The Location Of Their Choice, 07/03/2023 19:53:56 07/03/2007/03/2023 COMPL ETE CBC WITH DIFF monocyte 5.8 % (4.5-1 0.5) Not Available [facility] ([facility] Order[facility] - All Locations) Patient Can Go To The Location Of Their Choice, 07/03/2023 19:53:56 07/03/2007/03/2023 COMPL ETE CBC WITH DIFF eo 0.9 % (0-6) Not Available [facility] ([facility] Order[facility] - All Locations) Patient Can Go To The Location Of Their Choice, 07/03/2023 19:53:56 07/03/2007/03/2023 COMPL ETE CBC WITH DIFF baso 0.7 % (0-2) Not Available [facility] ([facility] - All Locations) Patient Can Go To The Location Of Their Choice, 07/03/2023 19:53:56 07/03/2007/03/2023 COMPL ETE CBC WITH DIFF imm gran 0.3 % Not Available [facility] ([facility] Order[facility] - All Locations) Patient Can Go To The Location Of Their Choice, 07/03/2023 19:53:56 07/03/2007/03/2023 TSH WITH REFLE X TO FT4 TSH 2.16 uIU/m L (0.4-4 .2) Not Available [facility] ([facility] - All Locations) Patient Can Go To The Location Of Their Choice, 07/03/2023 20:04:47 07/05/2007/06/2024 CBC WITH DIFFE RENTI AL/PL ATELE T WBC 11.6 x10e3 /uL 3.4-10 .8 above high normal Not Available [facility] ([facility]) [address] [facility], [place], [address], 07/06/2024 12:06:49 07/05/20 24 07/06/2024 CBC WITH DIFFE RENTI AL/PL ATELE T RBC 4.53 x10e6 /uL 3.77-5 .28 normal Not Available [facility] ([facility]) [address] [place], [address], 07/06/2024 12:06:49 07/05/20 24 07/06/2024 CBC WITH DIFFE RENTI AL/PL ATELE T hemoglobin 14.6 g/dL 11.1-1 5.9 normal Not Available [facility] ([facility]) [address] [place], [address], 07/06/2024 12:06:49 07/05/20 24 07/06/2024 CBC WITH DIFFE RENTI AL/PL ATELE T hematocrit 43.3 % 34.0-4 6.6 normal Not Available [facility] ([facility]) [address] [place], [address], 07/06/2024 12:06:49 07/05/20 24 07/06/2024 CBC WITH DIFFE RENTI AL/PL ATELE T MCV 96 fL 79-97 normal Not Available [facility] ([facility]) [address] [place], [address], 07/06/2024 12:06:49 07/05/20 24 07/06/2024 CBC WITH DIFFE RENTI AL/PL ATELE T MCH 32.2 pg 26.6-3 3.0 normal Not Available [facility] ([facility]) [address] [place], [address], 07/06/2024 12:06:49 07/05/20 24 07/06/2024 CBC WITH DIFFE RENTI AL/PL ATELE T MCHC 33.7 g/dL 31.5-3 5.7 normal Not Available [facility] ([facility]) [address] [place], [address], 07/06/2024 12:06:49 07/05/20 24 07/06/2024 CBC WITH DIFFE RENTI AL/PL ATELE T RDW 13.1 % 11.7-1 5.4 Not Available [facility] ([facility]) [address] [facility], [place], [address], 07/06/2024 12:06:49 07/05/20 24 07/06/2024 CBC WITH DIFFE RENTI AL/PL ATELE T platelets 351 x10e3 /uL 150-45 0 normal Not Available [facility] ([facility]) [address] [facility], [place], [address], 07/06/2024 12:06:49 07/05/20 24 07/06/2024 CBC WITH DIFFE RENTI AL/PL ATELE T neutrophils 71 % not estab. normal Not Available [facility] ([facility]) [address] [facility], [place], [address], 07/06/2024 12:06:49 07/05/20 24 07/06/2024 CBC WITH DIFFE RENTI AL/PL ATELE T lymphs 22 % not estab. normal Not Available [facility] ([facility]) [address] [facility], [place], [address], 07/06/2024 12:06:49 07/05/20 24 07/06/2024 CBC WITH DIFFE RENTI AL/PL ATELE T monocytes 6 % not estab. normal Not Available [facility] ([facility]) [address] [facility], [place], [address], 07/06/2024 12:06:49 07/05/20 24 07/06/2024 CBC WITH DIFFE RENTI AL/PL ATELE T eos 1 % not estab. normal Not Available [facility] ([facility]) [address] [facility], [place], [address], 07/06/2024 12:06:49 07/05/20 24 07/06/2024 CBC WITH DIFFE RENTI AL/PL ATELE T basos 0 % not estab. normal Not Available [facility] ([facility]) [address] [place], [address], 07/06/2024 12:06:49 07/05/20 24 07/06/2024 CBC WITH DIFFE RENTI AL/PL ATELE T immature cells CIVIL STRUCTURAL ENGINEER Not Available [facility] ([facility]) [address] [place], [address], 07/06/2024 12:06:49 07/05/20 24 07/06/2024 CBC WITH DIFFE RENTI AL/PL ATELE T neutrophils (absolute) 8.2 x10e3 /uL 1.4-7. 0 above high normal Not Available [facility] ([facility]) [address] [place], [address], 07/06/2024 12:06:49 07/05/20 24 07/06/2024 CBC WITH DIFFE RENTI AL/PL ATELE T lymphs (absolute) 2.6 x10e3 /uL 0.7-3. 1 normal Not Available [facility] ([facility]) [address] [place], [address], 07/06/2024 12:06:49 07/05/20 24 07/06/2024 CBC WITH DIFFE RENTI AL/PL ATELE T monocytes(ab solute) 0.7 x10e3 /uL 0.1-0. 9 normal Not Available [facility] ([facility]) [address] [place], [address], 07/06/2024 12:06:49 07/05/20 24 07/06/2024 CBC WITH DIFFE RENTI AL/PL ATELE T eos (absolute) 0.1 x10e3 /uL 0.0-0. 4 normal Not Available [facility] ([facility]) [address] [place], [address], 07/06/2024 12:06:49 07/05/20 24 07/06/2024 CBC WITH DIFFE RENTI AL/PL ATELE T baso (absolute) 0.1 x10e3 /uL 0.0-0. 2 normal Not Available [facility] ([facility]) [address] [facility], [place], [address], 07/06/2024 12:06:49 07/05/20 24 07/06/2024 CBC WITH DIFFE RENTI AL/PL ATELE T immature granulocytes 0 % not estab. Not Available [facility] ([facility]) [address] [facility], [place], [address], 07/06/2024 12:06:49 07/05/20 24 07/06/2024 CBC WITH DIFFE RENTI AL/PL ATELE T immature grans (abs) 0.0 x10e3 /uL 0.0-0. 1 Not Available [facility] ([facility]) [address] [facility], [place], [address], 07/06/2024 12:06:49 07/05/20 24 07/06/2024 CBC WITH DIFFE RENTI AL/PL ATELE T NRBC CIVIL STRUCTURAL ENGINEER Not Available [facility] ([facility]) [address] [facility], [place], [address], 07/06/2024 12:06:49 07/05/20 24 07/06/2024 CBC WITH DIFFE RENTI AL/PL ATELE T hematology comments: CIVIL STRUCTURAL ENGINEER Not Available [facility] ([facility]) [address] [facility], [place], [address], 07/06/2024 12:06:49 07/05/20 24 07/06/2024 COMP. METAB OLIC PANEL (14) glucose 93 mg/dL 70-99 normal Not Available [facility] ([facility]) [address] [facility], [place], [address], 07/06/2024 12:06:51 07/05/20 24 07/06/2024 COMP. METAB OLIC PANEL (14) BUN 16 mg/dL 8-27 normal Not Available [facility] ([facility]) [address] [place], [address], 07/06/2024 12:06:51 07/05/20 24 07/06/2024 COMP. METAB OLIC PANEL (14) creatinine 0.74 mg/dL 0.57-1 .00 normal Not Available [facility] ([facility]) [address] [facility], [place], [address], 07/06/2024 12:06:51 07/05/20 24 07/06/2024 COMP. METAB OLIC PANEL (14) eGFR 86 mL/mi n/1.7 3 >59 normal Not Available [facility] ([facility]) [address] [facility], [place], [address], 07/06/2024 12:06:51 07/05/20 24 07/06/2024 COMP. METAB OLIC PANEL (14) BUN/creatini ne ratio 22 12-28 normal Not Available [facility] ([facility]) [address] [facility], [place], [address], 07/06/2024 12:06:51 07/05/20 24 07/06/2024 COMP. METAB OLIC PANEL (14) sodium 140 mmol/ L 134-14 4 normal Not Available [facility] ([facility]) [address] [place], [address], 07/06/2024 12:06:51 07/05/20 24 07/06/2024 COMP. METAB OLIC PANEL (14) potassium 3.7 mmol/ L 3.5-5. 2 normal Not Available [facility] ([facility]) [address] [facility], [place], [address], 07/06/2024 12:06:51 07/05/20 24 07/06/2024 COMP. METAB OLIC PANEL (14) chloride 106 mmol/ L 96-106 normal Not Available [facility] ([facility]) [address] [facility] [place], [address], 07/06/2024 12:06:51 07/05/20 24 07/06/2024 COMP. METAB OLIC PANEL (14) carbon dioxide, total 20 mmol/ L 20-29 normal Not Available [facility] ([facility]) [address] [facility] [place], [address], 07/06/2024 12:06:51 07/05/20 24 07/06/2024 COMP. METAB OLIC PANEL (14) calcium 9.5 mg/dL 8.7-10 .3 normal Not Available [facility] ([facility]) [address] [facility] [place], [address], 07/06/2024 12:06:51 07/05/20 24 07/06/2024 COMP. METAB OLIC PANEL (14) protein, total 6.7 g/dL 6.0-8. 5 normal Not Available [facility] ([facility]) [address] [facility] [place], [address], 07/06/2024 12:06:51 07/05/20 24 07/06/2024 COMP. METAB OLIC PANEL (14) albumin 4.2 g/dL 3.8-4. 8 normal Not Available [facility] ([facility]) [address] [facility] [place], [address], 07/06/2024 12:06:51 07/05/20 24 07/06/2024 COMP. METAB OLIC PANEL (14) globulin, total 2.5 g/dL 1.5-4. 5 Not Available [facility] ([facility]) [address] [facility] [place], [address], 07/06/2024 12:06:51 07/05/20 24 07/06/2024 COMP. METAB OLIC PANEL (14) bilirubin, total 0.3 mg/dL 0.0-1. 2 normal Not Available [facility] ([facility]) [address], [address], 07/06/2024 12:06:51 07/05/20 24 07/06/2024 COMP. METAB OLIC PANEL (14) alkaline phosphatase 108 IU/L 44-121 normal Not Available [facility] ([facility]) [address] [place], [address], 07/06/2024 12:06:51 07/05/20 24 07/06/2024 COMP. METAB OLIC PANEL (14) AST (SGOT) 13 IU/L 0-40 normal Not Available [facility] ([facility]) [address], [address], 07/06/2024 12:06:51 07/05/20 24 07/06/2024 COMP. METAB OLIC PANEL (14) ALT (SGPT) 11 IU/L 0-32 normal Not Available [facility] ([facility]) [address] [facility], [place], [address], 07/06/2024 12:06:51 07/05/20 24 07/06/2024 LIPID PANEL cholesterol, total 138 mg/dL 100-19 9 normal Not Available [facility] ([facility]) [address] [facility] [place], [address], 07/06/2024 12:06:52 07/05/20 24 07/06/2024 LIPID PANEL triglyceride s 121 mg/dL 0-149 normal Not Available [facility] ([facility]) [address] [facility] [place], [address], 07/06/2024 12:06:52 07/05/20 24 07/06/2024 LIPID PANEL HDL cholesterol 40 mg/dL >39 normal Not Available [facility]) [address] [facility] [place], [address], 07/06/2024 12:06:52 07/05/20 24 07/06/2024 LIPID PANEL VLDL cholesterol nino 22 mg/dL 5-40 Not Available [facility] ([facility]) [address] [facility], [place], [address], 07/06/2024 12:06:52 07/05/20 24 07/06/2024 LIPID PANEL LDL chol calc ([facility] [place]) 76 mg/dL 0-99 Not Available [facility]) [address] [facility], [place], [address], 07/06/2024 12:06:52 07/05/20 24 07/06/2024 LIPID PANEL LDL calc comment: CIVIL STRUCTURAL ENGINEER Not Available [facility] ([facility]) [address] [facility], [place], [address], 07/06/2024 12:06:52 07/05/20 24 07/06/2024 VITAM IN D, 25-HY DROXY vitamin D, 25-hydroxy 29.9 NG/mL 30.0-1 00.0 below low normal Vitam in D defic iency has been defin ed by the Insti tute of Medic ine and an Endoc rine Socie ty pract ice guide line as a level of serum 25-OH vitam in D less than 20 ng/mL (1,2) . The Endoc rine Socie ty went on to furth er defin e vitam in D insuf ficie ncy as a level betwe en 21 and 29 ng/mL (2). 1. IOM (Inst itute of Medic ine). 2010. Dieta ry refer ence intak es for calci um and D. [employer] [place]: The Natio nal [facility] Press . 2. Roc luu MF, Beltran oseguera [place], Tracey off-F errar i DEAN, et al. Evalu ation , treat ment, and preve ntion of vitam in D defic iency : an Endoc rine Socie ty clini nino pract ice guide line. JCEM. 2010; 96(7) :1911 -30. Not Available [facility] ([facility]) [address] [facility], [place], [address], 07/06/2024 12:06:53 07/05/20 24 07/06/2024 TSH RFX ON ABNOR MAL TO FREE T4 TSH 2.280 uIU/m L 0.450- 4.500 normal Not Available [facility] ([facility]) [address] [facility], [place], [address], 07/06/2024 12:06:54 05/12/20 25 06/05/2025 CBC WITH AUTO DIFFE RENTI AL WBC 11.9 K/mcL 4.8-10 .8 high Not Available [facility]/S Dept [address] [place] [address], [address], 06/05/2025 15:01:38 05/12/20 25 06/05/2025 CBC WITH AUTO DIFFE RENTI AL RBC 4.60 M/mcL 3.80-4 .80 Not Available [facility] Dept [address] [place] [address], [address], 06/05/2025 15:01:38 05/12/20 25 06/05/2025 CBC WITH AUTO DIFFE RENTI AL hemoglobin 14.4 g/dL 11.5-1 6.0 Not Available [facility]/S Dept [address] [place] [address] [place], [address], 06/05/2025 15:01:38 05/12/20 25 06/05/2025 CBC WITH AUTO DIFFE RENTI AL hematocrit 43.9 % 35.0-4 7.0 Not Available [facility]/S Dept [address] [place] [address] [place], [address], 06/05/2025 15:01:38 05/12/20 25 06/05/2025 CBC WITH AUTO DIFFE RENTI AL MCV 95.0 fL 79.0-9 8.0 Not Available [facility] Dept [address] [place] [address] [place], [address], 06/05/2025 15:01:38 05/12/20 25 06/05/2025 CBC WITH AUTO DIFFE RENTI AL MCH 31.2 pcg 27.0-3 2.0 Not Available [facility]/ Dept [facility] D[place], [address], 06/05/2025 15:01:38 05/12/20 25 06/05/2025 CBC WITH AUTO DIFFE RENTI AL MCHC 32.8 g/dL 32.0-3 7.0 Not Available [facility] [address] [place] [address] [place], [address], 06/05/2025 15:01:38 05/12/20 25 06/05/2025 CBC WITH AUTO DIFFE RENTI AL RDW 14.2 % 11.0-1 5.0 Not Available [facility] [address] [place], [place] [address], [address], 06/05/2025 15:01:38 05/12/20 25 06/05/2025 CBC WITH AUTO DIFFE RENTI AL platelets 358 K/mcL 130-40 0 Not Available [facility] [address] [place], [place] [address], [address], 06/05/2025 15:01:38 05/12/20 25 06/05/2025 CBC WITH AUTO DIFFE RENTI AL MPV 8.9 fL 7.0-11 .0 Not Available [facility] [address] [place] [address] [place], [address], 06/05/2025 15:01:38 05/12/20 25 06/05/2025 CBC WITH AUTO DIFFE RENTI AL NRBC 0.0 % <1.0 Not Available [facility] [address] [place], [place] [address], [address], 06/05/2025 15:01:38 05/12/20 25 06/05/2025 CBC WITH AUTO DIFFE RENTI AL NRBC absolute 0.00 K/mcL <0.10 Not Available [facility]/S Dept [address] [place] [address], [address], 06/05/2025 15:01:38 05/12/20 25 06/05/2025 CBC WITH AUTO DIFFE RENTI AL neutrophils relative 65.2 % Not Available [facility]/S Dept [address] [place] [address] [place], [address], 06/05/2025 15:01:38 05/12/20 25 06/05/2025 CBC WITH AUTO DIFFE RENTI AL lymphocytes relative 26.5 % Not Available [facility] [address] [place] [address] [place], [address], 06/05/2025 15:01:38 05/12/20 25 06/05/2025 CBC WITH AUTO DIFFE RENTI AL monocytes relative 6.6 % Not Available [facility] [address] [place] [address] [place], [address], 06/05/2025 15:01:38 05/12/20 25 06/05/2025 CBC WITH AUTO DIFFE RENTI AL eosinophils relative 0.9 % Not Available [facility] [address] [place] [address] [place], [address], 06/05/2025 15:01:38 05/12/20 25 06/05/2025 CBC WITH AUTO DIFFE RENTI AL basophils relative 0.5 % Not Available [facility] [address] [place] [address], [address], 06/05/2025 15:01:38 05/12/20 25 06/05/2025 CBC WITH AUTO DIFFE RENTI AL immature granulocytes relative 0.3 % Not Available [facility]/S Dept [facility] [place], [address], 06/05/2025 15:01:38 05/12/20 25 06/05/2025 CBC WITH AUTO DIFFE RENTI AL neutrophils absolute 7.75 K/mcL 1.50-7 .00 high Not Available [facility] [address] [place] [address] [place], [address], 06/05/2025 15:01:38 05/12/20 25 06/05/2025 CBC WITH AUTO DIFFE RENTI AL lymphocytes absolute 3.16 K/mcL 1.00-5 .00 Not Available [facility] [place], [address], 06/05/2025 15:01:38 05/12/20 25 06/05/2025 CBC WITH AUTO DIFFE RENTI AL monocytes absolute 0.79 K/mcL 0.20-1 .00 Not Available [facility] [place], [address], 06/05/2025 15:01:38 05/12/20 25 06/05/2025 CBC WITH AUTO DIFFE RENTI AL eosinophils absolute 0.11 K/mcL 0.00-0 .50 Not Available [facility] [address] [place], [place] [address], [address], 06/05/2025 15:01:38 05/12/20 25 06/05/2025 CBC WITH AUTO DIFFE RENTI AL basophils absolute 0.06 K/mcL 0.00-0 .20 Not Available [facility] [address] [place] [address] [place], [address], 06/05/2025 15:01:38 05/12/20 25 06/05/2025 CBC WITH AUTO DIFFE RENTI AL immature granulocytes absolute 0.04 K/mcL 0.00-0 .03 high Not Available [facility]/S Dept [address] [place] [address] [place], [address], 06/05/2025 15:01:38 05/12/20 25 06/05/2025 CBC WITH AUTO DIFFE RENTI AL note See Report high [facility], [address], [place], [facility] [address] Not Available [facility]/S Dept [address] [place] [address] [facility] [place], [address], 06/05/2025 15:01:38 05/12/20 25 06/05/2025 PROTH ROMBI N TIME WITH INR protime 12.0 sec 10.6-1 3.9 Not Available [facility] [address] [place] [address] [facility] [place], [address], 06/05/2025 15:26:45 05/12/20 25 06/05/2025 PROTH ROMBI N TIME WITH INR INR 1.0 Not Available [facility]/S Dept [address] [place] [address] [facility] [place], [address], 06/05/2025 15:26:45 05/12/20 25 06/05/2025 PROTH ROMBI N TIME WITH INR note See Report [facility], [address], [place], [facility] [address] Not Available [facility]/S Dept [address] [place] [address] [facility] [place], [address], 06/05/2025 15:26:45 05/12/20 25 06/05/2025 BASIC METAB OLIC PANEL sodium 138 mmol/ L 133-14 5 Not Available [facility] [address] [place] [address] [facility] [place], [address], 06/05/2025 15:49:09 05/12/20 25 06/05/2025 BASIC METAB OLIC PANEL potassium 3.5 mmol/ L 3.5-5. 5 Not Available [facility] [place], [address], 06/05/2025 15:49:09 05/12/20 25 06/05/2025 BASIC METAB OLIC PANEL chloride 107 mmol/ L 96-110 Not Available [place] [address] [place], [address], 06/05/2025 15:49:09 05/12/20 25 06/05/2025 BASIC METAB OLIC PANEL CO2 23 mmol/ L 21-32 Not Available [facility] [place], [address], 06/05/2025 15:49:09 05/12/20 25 06/05/2025 BASIC METAB OLIC PANEL anion gap 8 3-11 Not Available [facility] [place], [address], 06/05/2025 15:49:09 05/12/20 25 06/05/2025 BASIC METAB OLIC PANEL glucose 92 mg/dL 70-100 Not Available [facility] [place], [address], 06/05/2025 15:49:09 05/12/20 25 06/05/2025 BASIC METAB OLIC PANEL BUN 15 mg/dL 5-25 Not Available [facility] [place], [address], 06/05/2025 15:49:09 05/12/20 25 06/05/2025 BASIC METAB OLIC PANEL creatinine 0.72 mg/dL 0.50-1 .10 Not Available [place] [address] [place], [address], 06/05/2025 15:49:09 05/12/20 25 06/05/2025 BASIC METAB OLIC PANEL eGFR 89 mL/mi n/1.7 3m2 >=60 Calcu latio n based on the Chron ic Kidne y Disea se Epide miolo gy Colla borat ion (CKD- EPI) equat ion refit witho ut adjus tment for race. Not Available [facility] U/S Dept [address] [place] [address], [address], 06/05/2025 15:49:09 05/12/20 25 06/05/2025 BASIC METAB OLIC PANEL BUN/creatini ne ratio 20.8 Not Available [facility] [address] [place] [address], [address], 06/05/2025 15:49:09 05/12/20 25 06/05/2025 BASIC METAB OLIC PANEL calcium 9.5 mg/dL 8.5-10 .5 Not Available [facility]/S Dept [address] [place] [address], [address], 06/05/2025 15:49:05/12/20 25 06/05/2025 BASIC METAB OLIC PANEL note See Report [facility], [address], [place], [facility] [place] [address] Not Available [facility]/S Dept [address] [place] [address], [address], 06/05/2025 15:49:09 06/07/20 25 06/07/2025 CULTU RE RESPI RATOR Y WITH GRAM STAIN .note See Note Origi nal Order ing Provi zane: GEOFF Vera STEWART BELKA [facility] - [address], [place], [place] [address] Not Available [facility]/S Dept [address] [place] [address], [address], 06/07/2025 11:20:13 06/07/20 25 06/07/2025 CULTU RE RESPI RATOR Y WITH GRAM STAIN gram stain result abnormal Many WBCs prese nt Rare Epith elial cells No organ isms seen Not Available [facility]/S Dept [address] [place] [address], [place], [address], 06/07/2025 11:20:13 06/07/20 25 06/07/2025 CULTU RE AFB AND SMEAR .note See Note Origi nal Order ing Provi zane: GEOFF Vera STEWART BELKA R [facility] - [address], [place], [place] [address] Not Available [facility]/ Dept [address] [place] [address], [address], 06/08/2025 11:39:05 06/07/20 25 06/07/2025 CULTU RE AFB AND SMEAR AFB stain No Acid fast bacill i seen Not Available [facility]/S Dept [address] [place] [address], [place], [address], 06/08/2025 11:39:05 06/07/20 25 06/07/2025 CULTU RE RESPI RATOR Y WITH GRAM STAIN .note See Note Origi nal Order ing Provi zane: GEOFF STEWART BELJOSE R [facility] - [address], [place], [place] [address] Not Available [facility] [address] [place] [address], [place], [address], 06/08/2025 11:39:21 06/07/20 25 06/07/2025 CULTU RE RESPI RATOR Y WITH GRAM STAIN culture, respiratory No growth at 1 day Not Available [facility]/S [address], [address], 06/08/2025 11:39:21 06/07/20 25 06/07/2025 CULTU RE RESPI RATOR Y WITH GRAM STAIN gram stain result abnormal Many WBCs prese nt Rare Epith elial cells No organ isms seen Not Available [address], [address], 06/08/2025 11:39:21 06/07/20 25 06/07/2025 CULTU RE RESPI RATOR Y WITH GRAM STAIN .note See Note Origi nal Order ing Provi zane: GEOFF HASSAN R [facility] - [address] [place] [address] Not Available [facility]/[address], [address], 06/08/2025 11:40:07 06/07/20 25 06/07/2025 CULTU RE RESPI RATOR Y WITH GRAM STAIN culture, respiratory No growth at 1 day Not Available [facility] [address] [place] [address], [place], [address], 06/08/2025 11:40:07 06/07/20 25 06/07/2025 CULTU RE RESPI RATOR Y WITH GRAM STAIN gram stain result abnormal Many WBCs prese nt Rare Epith elial cells No organ isms seen Not Available [address], [address], 06/08/2025 11:40:07 06/07/20 25 06/07/2025 CULTU RE RESPI RATOR Y WITH GRAM STAIN .note See Note Origi nal Order ing Provi zane: GEOFF STEWART BELKA R [facility] - [address] [place] [address] Not Available [facility] [address] [place], [place] [address], [address], 06/08/2025 11:41:21 06/07/20 25 06/07/2025 CULTU RE RESPI RATOR Y WITH GRAM STAIN culture, respiratory No growth at [address] [facility] [address] [place], [place] [address], [address], 06/08/2025 11:41:21 06/07/20 25 06/07/2025 CULTU RE RESPI RATOR Y WITH GRAM STAIN gram stain result abnormal Many WBCs prese nt Rare Epith elial cells No organ isms seen Not Available [address] [place], [address], 06/08/2025 11:41:21 06/07/20 25 06/07/2025 CULTU RE RESPI RATOR Y WITH GRAM STAIN .note See Note Origi nal Order ing Provi zane: GEOFF A TERRY BELKA R [facility] - Labor [address] [place] [address] Not Available [facility] [address] [place], [place] [address]sil[facility] [place], [address], 06/08/2025 12:05:16 06/07/20 25 06/07/2025 CULTU RE RESPI RATOR Y WITH GRAM STAIN culture, respiratory No growth at [address] [facility] [address] [place], [place] [address], [address], 06/08/2025 12:05:16 06/07/20 25 06/07/2025 CULTU RE RESPI RATOR Y WITH GRAM STAIN gram stain result abnormal Many WBCs prese nt Rare Epith elial cells No organ isms seen Not Available [address], [place], [address], 06/08/2025 12:05:16 06/07/20 25 06/07/2025 CULTU RE RESPI RATOR Y WITH GRAM STAIN .note See Note Origi nal Order ing Provi zane: GEOFF PAULKA R [facility] - [address] [place] [address] Not Available [facility] [address] [place] [address], [address], 06/09/2025 09:35:46 06/07/20 25 06/07/2025 CULTU RE RESPI RATOR Y WITH GRAM STAIN culture, respiratory No growth at 2 days Not Available [address] [place], [address], 06/09/2025 09:35:46 06/07/20 25 06/07/2025 CULTU RE RESPI RATOR Y WITH GRAM STAIN gram stain result abnormal Many WBCs prese nt Rare Epith elial cells No organ isms seen Not Available [facility] [address] [place] [address], [place], [address], 06/09/2025 09:35:46 06/07/20 25 06/07/2025 CULTU RE AFB AND SMEAR .note See Note Origi nal Order ing Provi zane: GEOFF HASSAN R [facility] - [address] [place] [address] Not Available [facility] [address] [place] [address], [place], [address], 06/09/2025 14:42:05 06/07/20 25 06/07/2025 CULTU RE AFB AND SMEAR AFB stain No Acid fast bacill i seen Not Available [facility]/S Dept [address] [place] [address] [place], [address], 06/09/2025 14:42:05 06/07/20 25 06/07/2025 CULTU RE RESPI RATOR Y WITH GRAM STAIN .note See Note Origi nal Order ing Provi zane: GEOFF A TERRY BELKA R [facility] - [address] [place] [address] Not Available [facility] [address] [place] [address], [address], 06/10/2025 10:09:19 06/07/20 25 06/07/2025 CULTU RE RESPI RATOR Y WITH GRAM STAIN culture, respiratory No growth at 3 days Not Available [facility] [address] [place] [address], [place], [address], 06/10/2025 10:09:19 06/07/20 25 06/07/2025 CULTU RE RESPI RATOR Y WITH GRAM STAIN gram stain result abnormal Many WBCs prese nt Rare Epith elial cells No organ isms seen Not Available [facility] [address] [place] [address], [place], [address], 06/10/2025 10:09:19 06/07/20 25 06/07/2025 CULTU RE AFB AND SMEAR .note See Note Origi nal Order ing Provi zane: GEOFF A TERRY BELKA R [facility] - [address] [place] [address] Not Available [facility] [address] [place] [address], [place], [address], 06/11/2025 14:34:28 06/07/20 25 06/07/2025 CULTU RE AFB AND SMEAR culture AFB No AFB isolat ed after [address] [facility] [address] [place] [address] [place], [address], 06/11/2025 14:34:28 06/07/20 25 06/07/2025 CULTU RE AFB AND SMEAR AFB stain No Acid fast bacill i seen Not Available [facility] [address] [place] [address], [place], [address], 06/11/2025 14:34:28 06/07/20 25 06/07/2025 CULTU RE FUNGU S, MISCE LLANE OUS SOURC E .note See Note Origi nal Order ing Provi zaen: [facility] - [address], [place], [place] [address] Not Available [facility] [address] [place] [address], [address], 06/11/2025 14:49:09 06/07/20 25 06/07/2025 CULTU RE FUNGU S, MISCE LLANE OUS SOURC E culture, fungus No Yeast or Mold isolat ed after [address] [facility] [address] [place] [address] [place], [address], 06/11/2025 14:49:09 06/07/20 25 06/07/2025 CULTU RE FUNGU S, MISCE LLANE OUS SOURC E .note See Note Origi nal Order ing Provi zane: GEOFF HASSAN R [facility] - [address], [place], [place] [address] Not Available [facility] [address] [place] [address], [address], 06/12/2025 14:12:24 06/07/20 25 06/07/2025 CULTU RE FUNGU S, MISCE LLANE OUS SOURC E culture, fungus MOLD abnormal Mold The organ ism value for this resul t has been updat ed. These resul ts have been appen ded to the previ ously preli minar y verif ied repor t. Not Available [facility] [facility] Dept [address] [place] [address], [address], 06/12/2025 14:12:24 06/07/2006/07/2025 CULTU RE AFB AND SMEAR .note See Note Origi nal Order ing Provi zane: GEOFF STEWART BELKA R [facility] - [address], [place] [address] Not Available [facility]/ Dept [address] [place] [address], [address], 06/14/2025 23:03:13 06/07/2006/07/2025 CULTU RE AFB AND SMEAR culture AFB No AFB isolat ed after 1 week. Not Available [facility] Dept [address] [place] [address], [place], [address], 06/14/2025 23:03:13 06/07/20 25 06/07/2025 CULTU RE AFB AND SMEAR AFB stain No Acid fast bacill i seen Not Available [facility] Dept [address] [place] [address], [address], 06/14/2025 23:03:13 06/07/2006/07/2025 CULTU RE FUNGU S, MISCE LLANE OUS SOURC E .note See Note Origi nal Order ing Provi zane: GEOFF STEWART BELKA R [facility] at[facility] - [address] [place], [place] [address] Not Available [facility]/S Dept [address] [place] [address], [address], 06/21/2025 13:18:11 06/07/20 25 06/07/2025 CULTU RE FUNGU S, MISCE LLANE OUS SOURC E culture, fungus MOLD abnormal Mold Hyali ne septa te hypha e. Ident ifica tion to follo w. The organ ism value for this resul t has been updat ed. These resul ts have been appen ded to the previ ously preli minar y verif ied repor t. Not Available [facility]/ Dept [address] [place] [address], [address], 06/21/2025 13:18:11 06/07/20 25 06/07/2025 CULTU RE AFB AND SMEAR .note See Note Origi nal Order ing Provi zane: GEOFF A TERRY BELKA R [facility] - Labor atory - [address], [place] [address] Not Available [facility]/ Dept [address] [place] [address], [address], 06/21/2025 23:03:15 06/07/20 25 06/07/2025 CULTU RE AFB AND SMEAR culture AFB No AFB isolat ed after 2 weeks. Not Available [facility]/S Dept [address] [place] [address], [place], [address], 06/21/2025 23:03:15 06/07/20 25 06/07/2025 CULTU RE AFB AND SMEAR AFB stain No Acid fast bacill i seen Not Available [facility] [address] [place] [address] [place], [address], 06/21/2025 23:03:15 06/07/20 25 06/07/2025 CULTU RE AFB AND SMEAR .note See Note Origi nal Order ing Provi zane: GEOFF STEWART BELKA R [facility] - [address] [place] [address] Not Available [facility] [address] [place] [address], [address], 06/28/2025 23:03:10 06/07/20 25 06/07/2025 CULTU RE AFB AND SMEAR culture AFB No AFB isolat ed after [address] [facility] [address] [place] [address], [address], 06/28/2025 23:03:10 06/07/20 25 06/07/2025 CULTU RE AFB AND SMEAR AFB stain No Acid fast bacill i seen Not Available [facility] [address] [place] [address], [place], [address], 06/28/2025 23:03:10 06/07/20 25 06/07/2025 CULTU RE AFB AND SMEAR .note See Note Origi nal Order ing Provi zane: GEOFF HASSAN R [facility] - [facility] at[facility] - [address] [place] [address] Not Available [facility]/ Dept [address] [place] [address], [address], 07/05/2025 23:03:37 06/07/20 25 06/07/2025 CULTU RE AFB AND SMEAR culture AFB No AFB isolat ed after [address] [facility] [address] [place] [address], [address], 07/05/2025 23:03:37 06/07/20 25 06/07/2025 CULTU RE AFB AND SMEAR AFB stain No Acid fast bacill i seen Not Available [facility]/ Dept [address] [place] [address], [address], 07/05/2025 23:03:37 06/07/20 25 06/07/2025 CULTU RE AFB AND SMEAR .note See Note Origi nal Order ing Provi zane: GEOFF STEWART BELKA R [facility] - [facility] at[facility] - [address] [place], Conne [place]u t [address] Not Available [facility] Dept [address] [place] [address], [address], 07/12/2025 23:03:01 06/07/20 25 06/07/2025 CULTU RE AFB AND SMEAR culture AFB No AFB isolat ed after 5 weeks. Not Available [facility] Dept [address] [place] [address], [place], [address], 07/12/2025 23:03:01 06/07/20 25 06/07/2025 CULTU RE AFB AND SMEAR AFB stain No Acid fast bacill i seen Not Available [facility] [address] [place] [address], [place], [address], 07/12/2025 23:03:01 06/07/2006/07/2025 CULTU RE FUNGU S, MISCE LLANE OUS SOURC E .note See Note Origi nal Order ing Provi zane: GEOFF HASSAN R [facility] at[facility] - [address] [place], [place] t [address] Not Available [facility] Dept [address] [place] [address], [address], 07/13/2025 10:45:16 06/07/2006/07/2025 CULTU RE FUNGU S, MISCE LLANE OUS SOURC E culture, fungus MOLD abnormal Mold STERI LE MOLD ISOLA VAN. Conta ct Micro biolo gy Lab if furth er Ident ifica tion Neede d. The organ ism value for this resul t has been updat ed. These resul ts have been appen ded to the previ ously preli minar y verif ied repor t. Not Available [facility]/ Dept [address] [place] [address], [address], 07/13/2025 10:45:16 06/07/2006/07/2025 CULTU RE AFB AND SMEAR .note See Note Origi nal Order ing Provi zane: GEOFF Vera STEWART BELKA R [facility] - [address], [place], [place] [address] Not Available [facility]/ Dept [address] [place] [address], [address], 07/19/2025 08:06:19 06/07/2006/07/2025 CULTU RE AFB AND SMEAR culture AFB No AFB isolat ed after 6 weeks. Not Available [facility]/ Dept [address] [place] [address], [address], 07/19/2025 08:06:19 06/07/2006/07/2025 CULTU RE AFB AND SMEAR AFB stain No Acid fast bacill i seen Not Available [facility] [address] [place] [address], [address], 07/19/2025 08:06:19 06/16/2006/16/2025 IMMUN OGLOB ULIN IGE IgE 21.4 I_uni t/mL 0.0-15 8.0 Not Available [facility] [address] [place] [address], [address], 06/16/2025 13:33:10 06/16/20 25 06/16/2025 IMMUN OGLOB ULIN IGE note See Report [facility], [address], [place], [facility] [place] [address] Not Available [facility]/S Dept [address] [place] [address], [place], [address], 06/16/2025 13:33:10 06/16/20 25 06/16/2025 ALLER GEN ASPER GILLU S FUMIG ATUS IGE aspergillus fumigatus, IgE 0.11 kU/L <0.10 high Not Available [facility] Dept [address] [place] [address] [place], [address], 06/20/2025 08:53:12 06/16/20 25 06/16/2025 ALLER GEN ASPER GILLU S FUMIG ATUS IGE aspergillus fumigatus class CLASS 0/1 Test perfo rmed at [facility] al Labor atory , [address] , [place] [address] [phone] Yancy shetty MD, PhD - Medic al [facility] Not Available [facility]/S Dept [address] [place] [address], [place], [address], 06/20/2025 08:53:12 06/16/2006/16/2025 ALLER GEN ASPER GILLU S FUMIG ATUS IGE note See Report [facility], [address], [place], [facility] [place] [address] Not Available [facility] Dept [address] [place] [address] [place], [address], 06/20/2025 08:53:12 06/16/20 25 06/16/2025 ASPER GILLU S GALAC TEOFILO NAN ANTIG EN aspergillus antigen index value <0.50 Not Available [facility]/S Dept [address] [place] [address], [place], [address], 06/22/2025 22:39:20 06/16/20 25 06/16/2025 ASPER GILLU S GALAC TEOFILO NAN ANTIG EN aspergillus antigen, EIA NOT DETECT ED REFER ENCE RANGE : <0.50 , NOT DETEC VAN An Index <0.50 is consi dered to be negat shawn. An Index >=0.5 0 is consi dered to be posit shawn. A posit shawn resul t for patie nts being treat ed with piper acill in-ta zobac diamond and other beta- lacta m antib iotic s such as amoxi cilli n-cla vulan ate may be a false posit shawn due to cross react ivity and shoul d be viewe d in conju nctio n with all clini nino findi ngs. Posit shawn resul ts with this assay has also been repor van in patie nts infec van with Penic illiu m robyn ffei and Crypt ococc us. Test Perfo rmed at: [facility] [address] [place] [address] I Chely mariee MD, PhD Not Available [facility]/S Dept [address] [place], [address], 06/22/2025 22:39:20 06/16/20 25 06/16/2025 CLINOTN IRVINU S GALAC TEOFILO NAN ANTIG EN note See Report [facility], [address], [place], [facility] [place] [address] Not Available [facility] Dept [address] [facility] [place], [address], 06/22/2025 22:39:20 09/04/20 23 08/27/2023 ankle brach ial index No observ ation record ed. [facility] Cardiology [address] [facility], [place], [address], 09/04/2023 15:23:23 10/28/20 23 10/28/2023 DEXA, axial skele ton Name:Ekaterina Parmar t ID: [id number] Age:68 years Sex:Fe male Ethnic ity:Wh ite Date of : [birth year] Reason : Postme nopaus al Referr ing Provid er:Gin Massey MD Study: Dexa Bone Densit y (Axial ) Bone Densit y: Region BMD T-Scor e Z-Scor e Classi ficati on AP Spine 0.924 -1.1 1.0 Osteop enia TOTAL HIP 0.778 -1.3 0.2 Osteop enia FEM NECK 0.648 -1.8 0.0 Osteop enia 10-yea r Fractu re Risk: 1 FRAX(R ) Versio n 3.08. Fractu re probab ility calcul ated for an untrea van patien t. Fractu re probab ility may be lower if the patien t has receiv ed treatm ent. Major Osteop orotic Fractu re 12% Hip Fractu re 3.3% Impres kristen: The patien t has osteop enia as determ ined by WHO criter ia. WSN: [id number] Orderi ng Physic candy: Collin Massey Dictat ed By: Chong Carlson rd, Jr, MD Dictat ed Date/T nohemi: 3:24 pm Review ed By: Chong Carlson rd, Jr, MD Signed By: Chong Carlsno rd, Jr, MD Signed Date/T nohemi: 3:24 pm Transc ribed By: CSB Transc ribed Date/T nohemi: 3:22 pm Patien t Class: Outpat ient [facility] (Outpt Imaging) [address] , [place], [address], 11/17/2023 10:26:34 10/28/20 23 10/28/2023 DEXA, axial skele ton No observ ation record ed. [email or web address] [facility] [address] [place], [address], 11/24/2023 13:00:48 10/28/2010/28/2023 MAMMO , scree cheko, bilat eral PROCED URE: MM Digita l Mammo Screen ing INDICA TION: Screen ing for breast cancer . No known palpab le abnorm alitie s. COMPAR OZZIE: [facility]. TECHNI QUE: Full-f ield digita l CC and MLO 3D tomosy nthesi s images of both breast s were acquir ed. Comput er-aid ed detect ion (CAD) was utiliz ed in the interp retati on of this study. DENSIT Y: The breast tissue contai ns scatte red areas of fibrog landul ar densit y. FINDIN GS: No suspic ious masses , suspic ious microc alcifi cation s, or areas of zully ectura l distor tion are seen in either breast to sugges t malign ryan. IMPRES KRISTEN: No mammog raphic eviden ce of malign ryan. RECOMM ENDATI ON: Annual mammog raphic screen ing BI-RAD S: 1 (Negat shawn) Lay letter mailed to ghulam hernández WSN: [id number] Orderi ng Physic candy: Collin Massey Dictat ed By: Esther Mohan MD, I Dictat ed Date/T nohemi: 3:35 pm Review ed By: Esther Mohan MD, I Signed By: Esther Mohan MD, I Signed Date/T nohemi: 3:35 pm Transc ribed By: CSB Transc riptio n Date/T nohemi: 3:33 pm Birads : Ghulam t Class: Outpat ient [email or web address] (Outpt Imaging) [address], [place], [address], 12/30/2023 12:04:13 10/28/20 23 10/28/2023 MAMMO , scree cheko, digit al, bilat eral No observ ation record ed. [email or web address] [facility] [address], [place], [address], 06/29/2024 14:03:56 04/11/20 24 04/08/2024 LDCT, chest , for lung cance r scree cheko No observ ation record ed. [facility] Diagnosit Imaging Dept [address] [place], [address], 04/11/2024 10:02:06 04/11/20 24 04/08/2024 LDCT, chest , for lung cance r scree cheko No observ ation record ed. [email or web address] [facility] Lung Cancer Screening Program [address] [place] [address], [address], 04/12/2024 08:53:44 08/08/20 24 08/03/2024 pulse volum e recor ding No observ ation record ed. [facility] Cardiology Diagnostic Testing [address] [place], [address], 08/08/2024 16:47:28 08/12/20 24 08/12/2024 elect dayana marte am No observ ation record ed. [email or web address] In-Office Order Internal Use Only DO Not Attach Compendium DO Not Attach Compendium, Do Not Delete/merge, [id number] 08/12/2024 14:42:41 08/12/20 elect rocdebora diogr am No observ ation record ed. [email or web address] In-Office Order Internal Use Only DO Not Attach Compendium DO Not Attach Compendium, Do Not Delete/merge, [id number] 08/12/2024 13:46:43 10/14/20 24 10/14/2024 ECG 12-le ad No observ ation record ed. [address], [address], 10/14/2024 15:34:46 10/17/20 24 ECG 12-le ad No observ ation record ed. [address], [address], 10/18/2024 06:11:23 11/03/20 24 11/01/2024 cardi ac monit or No observ ation record ed. [address] [place], [address], 11/03/2024 16:07:41 01/06/20 25 01/04/2025 trans thora cic echoc ardio gram (TTE) compl ete (cont rast/ bubbl e/3D PRN) No observ ation record ed. [email or web address] [facility] [address] [place], [address], 01/07/2025 08:23:59 01/10/20 25 01/04/2025 US, echoc ardio gram No observ ation record ed. [email or web address] Not Available 2024 16:47:41 05/04/2005/04/2025 LDCT, chest , for lung cance r tien still See Note [facility] , a member of [employer] [facility] Name: FELISA Tobar Date of : 1954 Reason for Exam: Lung cancer screen ing, >=20 pk yr curren t smoker (Age 50-80y ) Exam Date: 2024 [id number] EST Report Status : Final Orderi ng Provid er: RACHELLE DARBY PCP: COLLIN MASSEY PROCED URE: Low-do se CT of the chest withou t intrav enous contra st. TECHNI QUE: Low-do se CT of the chest withou t intrav enous contra st admini strati on. Craft l and sagitt al reform ats and MIP recons tructi ons were create d. Dose length produc t: 109 mGy-cm . HISTOR Y: Lung cancer screen ing, >=20 pk yr curren t smoker (Age 50-80y ) COMPAR OZZIE: 2023. FINDIN GS: Lungs/ pleura : Normal calibe r centra l airway s. There is a persis tent fillin g defect within the right lower lobe latera l basal segmen kofi bronch us with adjace nt debris (serie s 3, image 157). A previo usly noted 3 mm nodule at the right lung apex has resolv ed and was likely a focus of mucus pluggi ng. There are a few other small foci of mucus pluggi ng in the right upper lobe segmen kofi bronch i as well. Modera te centri lobula r emphys emerald. Mild depend ent ground glass in the right base, likely atelec tasis. No pleura l effusi on or pneumo thorax . Medias tinum/ ailyn: No medias tinal mass or lympha denopa thy. No apprec iable hilar lympha denopa thy on limite d noncon trast evalua tion. Vascul ature: Normal calibe r pulmon brook arteri es. Modera te athero sclero tic calcif icatio ns of the aorta and great vessel s. Cardia c: Normal heart size. Modera te aortic annula r, mitral annula r, and craft ry artery calcif icatio n. Chest wall: No axilla ry or suprac lavicu lar lympha denopa thy. Limite d abdome n: Unrema rkable . Bones: Degene rative change s of the spine. IMPRES KRISTEN: Lung RADS 4B. Persis tent fillin g defect within the right lower lobe latera l basal segmen kofi bronch us. Wherea s this at least partia lly repres ents aspira van debris , the findin g has been presen t since 2022, and the possib ility of an endobr onchia l nodule is raised . Consid er endosc opic evalua tion. ------ -- FINAL REPORT ------ -- Dictat ed By: Jovon Saldaña Dictat ed Date: 2024 16:05 ET Assign ed Physic candy: Jovon Saldaña Review ed and Electr onical ly Signed By: Jovon Saldaña Signed Date: 2024 16:27 ET Workst ation ID: [id number] Transc ribed By: Self Edit Transc ribed Date: 2024 16:05 ET [email or web address] [facility]/S Dept [address] [facility], [place], [address], 05/04/2025 21:08:18 06/07/20 25 06/07/2025 xr fluor o up to 1 hour (stat istic s)(no repor t) See Note [facility] , a member of [facility] t Name: FELISA Tobar Date of : 1954 Reason for Exam: FLEXIB LE BRONCH OSCOPY - Right ROBOTI C ASSIST ED BRONCH OSCOPY W. FNA, TBBX, BRUSH, BAL - Right RADIAL EBUS - Right LINEAR EBUS TBNA W. FLUORO SCOPY - Right Exam Date: 2024 [id number] EST Report Status : Final Orderi ng Provid er: SCARLETT LABOY PCP: COLLIN MASSEY This order has been auto-f inaliz ed and does not contai n a result . [facility]/S Dept [address] [place], [address], 06/07/2025 10:40:34 10/17/20 25 ECG 12-le ad No observ ation record ed. [facility]/S Dept [address] [facility], [place], [address], 10/17/2025 14:20:36 Result Notes Documentation Provider Name and Address Organization Details Recorded Time Dexa, Axial Skeleton : Name:FELISA SHORT Age:68 years Sex:Female Ethnicity:White Date of :1955 Reason: Postmenopausal Referring Provider:Shereen Massey MD Study:Dexa Bone Density (Axial) Bone Density: Region BMD T-Score Z-Score Classification AP Spine 0.924 -1.1 1.0 Osteopenia TOTAL HIP 0.778 -1.3 0.2 Osteopenia FEM NECK 0.648 -1.8 0.0 Osteopenia 10-year Fracture Risk: 1 FRAX(R) Version 3.08. Fracture probability calculated for an untreated patient. Fracture probability may be lower if the patient has received treatment. Major Osteoporotic Fracture 12% Hip Fracture 3.3% Impression: The patient has osteopenia as determined by WHO criteria. WSN: [id number] Ordering Physician: Shereen Massey Dictated By: Doris Cristobal MD, Chong Mack Dictated Date/Time: 10/28/23 3:24 pm Reviewed By: Chong George Jr, MD Signed By: Chong George Jr, MD Signed Date/Time: 10/28/23 3:24 pm Transcribed By: ZBIGNIEW Transcribed Date/Time: 10/28/23 3:22 pm Patient Class: Outpatient Shereen Massey MD [address], [address], [facility] 11/17/2023 08:02:24 Mammo, Screening, Bilateral : PROCEDURE: MM Digital Mammo Screening INDICATION: Screening for breast cancer. No known palpable abnormalities. COMPARISON: [facility] 01/24/2016. TECHNIQUE: Full-field digital CC and MLO 3D tomosynthesis images of both breasts were acquired. Computer-aided detection (CAD) was utilized in the interpretation of this study. DENSITY: The breast tissue contains scattered areas of fibroglandular density. FINDINGS: No suspicious masses, suspicious microcalcifications, or areas of architectural distortion are seen in either breast to suggest malignancy. IMPRESSION: No mammographic evidence of malignancy. RECOMMENDATION: Annual mammographic screening BI-RADS: 1 (Negative) Lay letter mailed to patient WSN: [id number] Ordering Physician: Shereen Massey Dictated By: Esther Mohan MD, I Dictated Date/Time: 10/28/23 3:35 pm Reviewed By: Esther Mohan MD, I Signed By: Esther Mohan MD, I Signed Date/Time: 10/28/23 3:35 pm Transcribed By: ZBIGNIEW Computer [employer] Examiner Date/Time: 10/28/23 3:33 pm Birads: Patient Class: Outpatient CHAD Yeung, [facility] 12/30/2023 12:04:13 Ldct, Chest, For Lung Cancer Screening : See Note [facility], a member of [employer] Patient Name: FELISA SHORT Date of : 1955 Reason for Exam: Lung cancer screening, >=20 pk yr current smoker (Age 50-80y) Exam Date: 05/04/2025 [id number] EST Report Status: Final Ordering Provider: RACHELLE DARBY PCP: SHEREEN MASSEY PROCEDURE: Low-dose CT of the chest without intravenous contrast. TECHNIQUE: Low-dose CT of the chest without intravenous contrast administration. Coronal and sagittal reformats and MIP reconstructions were created. Dose length product: 109 mGy-cm. HISTORY: Lung cancer screening, >=20 pk yr current smoker (Age 50-80y) COMPARISON: 04/08/2024. FINDINGS: Lungs/pleura: Normal caliber central airways. There is a persistent filling defect within the right lower lobe lateral basal segmental bronchus with adjacent debris (series 3, image 157). A previously noted 3 mm nodule at the right lung apex has resolved and was likely a focus of mucus plugging. There are a few other small foci of mucus plugging in the right upper lobe segmental bronchi as well. Moderate centrilobular emphysema. Mild dependent groundglass in the right base, likely atelectasis. No pleural effusion or pneumothorax. Mediastinum/ailyn: No mediastinal mass or lymphadenopathy. No appreciable hilar lymphadenopathy on limited noncontrast evaluation. Vasculature: Normal caliber pulmonary arteries. Moderate atherosclerotic calcifications of the aorta and great vessels. Cardiac: Normal heart size. Moderate aortic annular, mitral annular, and coronary artery calcification. Chest wall: No axillary or supraclavicular lymphadenopathy. Limited abdomen: Unremarkable. Bones: Degenerative changes of the spine. IMPRESSION: Lung RADS 4B. Persistent filling defect within the right lower lobe lateral basal segmental bronchus. Whereas this at least partially represents aspirated debris, the finding has been present since 2022, and the possibility of an endobronchial nodule is raised. Consider endoscopic evaluation. -------- FINAL REPORT -------- Dictated By: Jovon Mcgill Dictated Date: 05/04/2025 16:05 ET Assigned Physician: Jovon Mcgill Reviewed and Electronically Signed By: Jovon Mcgill Signed Date: 05/04/2025 16:27 ET Workstation ID: [id number] Transcribed By: Self Edit Transcribed Date: 05/04/2025 16:05 ET Shereen Massey MD [address], [address], [facility] 05/04/2025 21:08:18 Problems Name Problem SNOMED Code Status Onset Date Resolution Date Notes Provider Name and Address Organization Details Recorded Time Intrinsi c asthma 659397365 Completed 07/03/2023 Shereen Massey MD [address] [facility] [address], [place], [address] , [facility] 3 13:21:57 Bipolar I disorder 017126849 Active Question able dx Diagnosi s in 1993. Had psych admissio n Not Available [facility] 4 00:41:15 Screenin g for malignan t neoplasm of cervix Completed 12/30/2016 Dillon Sanders MD [address] [facility] [address], [place], [address] , [facility] 7 10:25:38 Chronic pain syndrome 763627623 Active Not Available [facility] 4 00:41:15 Diarrhea 33006363 Completed 12/30/2016 CHAD Ramos, [facility] 7 09:38:40 Hyperlip idemia 94143356 Active Not Available [facility] 4 00:41:15 Essentia l hyperten kristen 20214603 Active Not Available [facility] 4 00:41:15 Insomnia 855314936 Completed 07/03/2023 Shereen Massey MD [address] [facility] [address], [place], [address] , [facility] 3 13:21:52 Laborato ry procedur e performe d 602766987 Completed 12/30/2016 CHAD Ramos, [facility] 7 09:38:19 Major depressi on single episode, in partial remissio n 60362227 Active Not Available [facility] 4 00:41:15 Migraine 64525386 Completed 07/05/2024 Shereen Massey MD [address] [facility] [address], [place], [address] , [facility] 4 13:19:45 Obesity 170579161 Active Not Available [facility] 4 00:41:15 Obstruct shawn sleep apnea syndrome 48373138 Active Not Available [facility] 4 00:41:16 Peripher al vascular disease 398313151 Active Not Available [facility] 4 00:41:15 Paronych ia of toe [id number] Completed 12/30/2016 Dillon Sanders MD [address], [place], [address] , [facility] 7 10:26:03 Psoriasi s [id number] Active Not Available [facility] 4 00:41:16 Complex regional pain syndrome , type I Completed 03/15/2021 Dillon Sanders MD [address], [place], [address] , [facility] 1 13:28:02 Herpes zoster [id number] Completed 12/30/2016 Dillon Sanders MD [address], [place], [address] , [facility] 7 10:26:18 Administ ration of diphther ia, pertussi s, and tetanus vaccine Completed 12/30/2016 Yolanda Tatum MA [facility], [facility] 7 09:38:31 Tobacco dependen ce syndrome [id number] Active Not Available [facility] 4 00:41:16 Edema [id number] Completed 07/03/2023 Shereen Massey MD [address], [place], [address] , [facility] 3 13:21:39 Deep venous thrombos is of lower extremit y 471625909 Completed 07/03/2023 Shereen Massey MD [address] [facility] [address], [place], [address] , [facility] 3 13:21:35 Brachial radiculi tis 07813798 Completed 12/30/2016 Dillon Sanders MD [address], [place], [address] , [facility] 7 10:25:52 Mild persiste nt asthma [id number] Completed 07/05/2024 Shereen Massey MD [address] [facility] [address], [place], [address] , [facility] 4 13:19:48 Inflamma tion of sacroili ac joint 20311341 Active Not Available [facility] 4 00:41:15 Postural dizzines s 426045152 Completed 07/05/2024 Shereen Massey MD [address], [place], [address] , [facility] 4 13:19:55 Constipa tion 87634343 Completed 200706/20/2014 RECORDED 08/11/20 08 9:36AM BY ROCAEL RICHMONDATI ON/ADDEN DUM Not Available [facility] 4 14:48:23 Edema 838489572 Completed 200706/20/2014 RECORDED 08/11/20 08 9:36AM BY ROCAEL RICHMONDATI ON/ADDEN DUM Shereen Massey MD [address] [facility] [address], [place], [address] , [facility] 3 13:21:39 Pre-surg juan evaluati on Completed 200706/20/2014 RECORDED 08/11/20 08 7:46AM BY BLESSING MONTEMAYOR ON/ADDEN DUM Not Available [facility] 4 14:48:24 Constipa tion 74286525 Completed 200707/10/2014 RECORDED 08/11/20 08 9:36AM BY ROCAEL RICHMONDATI ON/ADDEN DUM Not Available [facility] 4 06:52:00 Pre-surg juan evaluati on Completed 200707/10/2014 RECORDED 08/11/20 08 7:46AM BY ROCAEL MONTEMAYORATI ON/ADDEN DUM Not Available [facility] 4 06:52:00 Dysmenor yeimi 703686039 Completed 200906/20/2014 RECORDED 01/07/20 10 10:20AM BY BLESSING TORRES ON/ADDEN DUM Not Available [facility] 4 14:48:23 Dysmenor yeimi 542537632 Completed 200907/10/2014 RECORDED 01/07/20 10 10:20AM BY BLESSING TORRES ON/ADDEN DUM Not Available [facility] 4 06:52:00 Family history of breast cancer 344764248 Completed 201106/20/2014 STORY: MOTHER; RECORDED 07/22/20 12 8:36AM BY ABY WADDELL MA, ANNOTATI ON/ADDEN DUM Not Available [facility] 4 14:48:23 Onychia of toe 726763811 Completed 201106/20/2014 RECORDED 07/22/20 12 8:36AM BY ABY WADDELL MA, ANNOTATI ON/ADDEN DUM Not Available [facility] 4 14:48:24 Family history of breast cancer 909778560 Completed 201107/10/2014 STORY: MOTHER; RECORDED 07/22/20 12 8:36AM BY ABY WADDELL MA, ANNOTATI ON/ADDEN DUM Not Available [facility] 4 06:52:00 Onychia of toe 394500500 Completed 201107/10/2014 RECORDED 07/22/20 12 8:36AM BY ABY WADDELL MA, ANNOTATI ON/ADDEN DUM Not Available [facility] 4 06:52:00 Influenz a vaccine needed 12416370824 06 Completed 201106/20/2014 RECORDED 11/19/20 12 10:58AM BY ABY WADDELL MA, ANNOTATI ON/ADDEN DUM Not Available [facility] 4 14:48:23 Influenz a vaccine needed 95353783683 06 Completed 201107/10/2014 RECORDED 11/19/20 12 10:58AM BY ABY WADDELL MA, ANNOTATI ON/ADDEN DUM Not Available [facility] 4 06:52:00 Chronic bronchit is Completed 201206/20/2014 RECORDED 05/25/20 13 11:04AM BY ABY WADDELL MA, ANNOTATI ON/ADDEN DUM Not Available [facility] 4 14:48:22 Screenin g for malignan t neoplasm of breast Completed 201206/20/2014 RECORDED 05/25/20 13 11:04AM BY ABY WADDELL MA, ANNOTATI ON/ADDEN DUM Not Available [facility] 4 14:48:23 Screenin g for malignan t neoplasm of colon Completed 201206/20/2014 RECORDED 05/25/20 13 11:04AM BY ABY WADDELL MA, ANNOTATI ON/ADDEN DUM Not Available [facility] 4 14:48:23 Cough [id number] Completed 201206/20/2014 RECORDED 05/25/20 13 11:04AM BY ABY WADDELL MA, ANNOTATI ON/ADDEN DUM Not Available [facility] 4 14:48:23 Chronic bronchit is Completed 201207/10/2014 RECORDED 05/25/20 13 11:04AM BY ABY WADDELL MA, ANNOTATI ON/ADDEN DUM Not Available [facility] 4 06:52:00 Screenin g for malignan t neoplasm of breast Completed 201207/10/2014 RECORDED 05/25/20 13 11:04AM BY ABY WADDELL MA, ANNOTATI ON/ADDEN DUM Not Available [facility] 4 06:52:00 Screenin g for malignan t neoplasm of colon Completed 201207/10/2014 RECORDED 05/25/20 13 11:04AM BY ABY WADDELL MA, ANNOTATI ON/ADDEN DUM Not Available [facility] 4 06:52:00 Cough 59971509 Completed 201207/10/2014 RECORDED 05/25/20 13 11:04AM BY ABY WADDELL MA, ANNOTATI ON/ADDEN DUM Not Available [facility] 4 06:52:00 Renewal of prescrip tion Completed 201206/20/2014 RECORDED 11/22/20 13 9:47AM BY ABY WADDELL MA, ANNOTATI ON/ADDEN DUM Not Available [facility] 4 14:48:24 Renewal of prescrip tion Completed 201207/10/2014 RECORDED 11/22/20 13 9:47AM BY ABY WADDELL MA, ANNOTATI ON/ADDEN DUM Not Available [facility] 4 06:52:00 Malaise and fatigue 929004609 Completed 201306/20/2014 RECORDED 01/09/20 14 11:05AM BY LIZ PATIÑO MA, ANNOTATI ON/ADDEN DUM Not Available [facility] 4 14:48:23 Malaise and fatigue 497195638 Completed 201307/10/2014 RECORDED 01/09/20 14 11:05AM BY LIZ PATIÑO MA, ANNOTATI ON/ADDEN DUM Not Available [facility] 4 06:52:00 Screenin g for malignan t neoplasm of cervix Completed 201307/10/2014 RECORDED 05/24/20 14 11:07AM BY ABY WADDELL MA, ANNOTATI ON/ADDEN DUM Dillon Sanders MD [address] [facility] [address], [place], [address] , [facility] 7 10:25:38 Diarrhea 84602240 Completed 201307/10/2014 STORY: PERSISTE NT DIARRHEA WITH RIGHT-SI DED ABDOMINA L PAIN; IMPRESSI ON: NEGATIVE WORKUP WITH CT AND STOOL STUDIES DURING [facility] STAY AT [facility] LAST WEEK.; RECORDED 05/24/20 14 11:07AM BY ABY WADDELL MA, ANNOTATI ON/ADDEN DUM Yolanda Tatum, [place] null, [facility] 7 09:38:40 Laborato ry procedur e performe d [id number] Completed 201307/10/2014 RECORDED 05/24/20 14 11:07AM BY ABY WADDELL MA, ANNOTATI ON/ADDEN ZENOBIA Tatum MA null, [facility] 7 09:38:19 Administ ration of diphther ia, pertussi s, and tetanus vaccine Completed 201307/10/2014 RECORDED 05/24/20 14 11:07AM BY ABY WADDELL MA, ANNOTATI ON/ADD CHAD Mckeon, [facility] 7 09:38:31 Hemorrho ids 50152748 Active 2013 Not Available [facility] 4 00:41:15 Supraven tricular tachycar dilan 5899836 Active 2016 Not Available [facility] 4 00:41:15 Osteopen ia 172538644 Completed 201708/23/2018 of hip Dillon Sanders MD [address] [facility] [address], [place], [address] , [facility] 9 11:39:01 Dual energy X-ray absorpti ometry of bone of hip joint region result osteopen ia 045688704 Active 2017 Not Available [facility] 4 00:41:15 Osteopen ia 453330835 Active 2018 of hip Not Available [facility] 4 00:41:15 Chronic obstruct shawn pulmonar y disease 71867664 Active 2019 Not Available [facility] 4 00:41:15 Tomograp hy - chest abnormal 153486794 Active 2020 Not Available [facility] 4 00:41:15 Complex regional pain syndrome 623189180 Active 2020 Not Available [facility] 4 00:41:15 Hyperten kristen monitori ng status 718008893 Active 2021 [facility]- Active Not Available [facility] 4 00:41:15 History of deep vein thrombos is 882771752 Active 2022 Not Available [facility] 4 00:41:15 Nodule of lung 435452920 Active 2023 Shereen Massey MD [address] [facility], [place], [address] , [facility] 4 13:27:48 Mixed urinary incontin ence 775704820 Active 2024 Shereen Massey MD [address] [address], [place], [address] , [facility] 5 12:35:27 Notes:Some problems listed i n Documents: #[id number], #[id number] could not be added to this patient's chart. Please review these documents and add these problems to the patient's chart manually as needed. Problem Notes None recorded. Procedures Surgical History Date Name Laterality Status Provider Name and Address Organization Details Recorded Time 06/07/20 25 bronchoscopy and bronchoalveolar lavage completed Shereen Massey MD [address] [address], [place], [address], [facility] 09/26/2025 12:07:54 07/05/20 24 Advanced Care Planning completed Shereen Massey MD [address] [address], [place], [address], [facility] 07/05/2024 08:24:21 10/28/20 23 Most Recent Mammogram completed Tiffanie Fernandez [facility] 10/28/2023 16:10:31 10/28/20 23 Mammogram Screening completed Tiffanie Fernandez [facility] 10/28/2023 16:10:22 07/03/20 23 Advanced Care Planning completed Shereen Massey MD [address] [address], [place], [address], [facility] 07/03/2023 13:50:19 03/11/[address] of lungs completed Sharee Steen [facility] 03/18/2023 14:48:38 02/26/20 22 Advanced Care Planning completed Shereen Massey MD [address] [address], [place], [address], [facility] 01/08/2022 08:35:06 05/24/20 21 Chronic Pain Assessment completed Koki Sampson MA [facility] 05/24/2021 10:08:30 04/12/20 21 Chronic Pain Assessment completed Koki Sampson MA [facility] 04/12/2021 13:00:38 03/15/20 21 Chronic Pain Assessment completed Koki Sampson MA [facility] 03/15/2021 12:46:29 12/21/19 21 Chronic Pain Assessment completed Salina Foster MA [facility] 12/21/2020 12:48:29 09/21/20 20 Chronic Pain Assessment completed Leona Tovar MA [facility] 09/21/2020 10:49:36 09/21/20 20 Six-Item Cognitive Test completed Leona Tovar MA [facility] 09/21/2020 10:51:42 03/09/20 20 Chronic Pain Assessment completed Aby moon MA [facility] 03/09/2020 09:44:34 12/09/19 20 Chronic Pain Assessment completed Aby moon MA [facility] 12/09/2019 10:59:07 09/26/20 19 Chronic Pain Assessment completed Aby moon MA [facility] 09/26/2019 10:53:31 06/06/20 19 Mini-Cog Test completed Aby moon MA [facility] 06/06/2019 13:59:04 06/06/20 19 Chronic Pain Assessment completed Aby moon MA [facility] 06/06/2019 14:00:08 03/11/20 19 Chronic Pain Assessment completed Aby moon, MA [facility] 03/11/2019 10:26:48 12/13/19 19 Chronic Pain Assessment completed Aby moon MA [facility] 12/13/2018 15:19:53 11/17/20 18 Chronic Pain Assessment completed Leona Tovar MA [facility] 11/17/2018 13:40:32 08/23/20 18 Chronic Pain Assessment completed Aby moon MA [facility] 08/23/2018 14:29:50 03/18/20 18 Most Recent Bone Density completed Aby moon MA [facility] 05/07/2018 10:45:34 03/18/20 18 Dxa bone density barney vrt fx completed Aby moon MA [facility] 05/07/2018 10:45:27 02/20/20 18 Chronic Pain Assessment completed Aby moon MA [facility] 02/19/2018 14:32:58 11/17/20 17 Chronic Pain Assessment completed Aby moon MA [facility] 11/17/2017 11:15:01 08/28/20 17 Chronic Pain Assessment completed Aby moon MA [facility] 08/28/2017 14:01:09 06/01/20 17 Chronic Pain Assessment completed Aby moon MA [facility] 06/01/2017 11:21:12 12/30/19 17 Chronic Pain Assessment completed Yolanda Tatum MA [facility] 12/30/2016 09:46:02 09/12/20 16 Chronic Pain Assessment completed Negrito Soares [facility] 09/12/2016 11:08:58 06/19/20 16 Chronic Pain Assessment completed Aby Mantilla-Mat CHAD moon [facility] 06/19/2016 10:46:58 03/21/20 16 Chronic Pain Assessment completed Aby Collazoivan-Mat CHAD moon [facility] 03/21/2016 09:49:16 03/03/20 16 Date of Last Pap Smear completed Yi Bolivar [facility] 03/12/2016 09:59:10 07/06/20 14 Date of Last Colonoscopy completed Aby moon MA [facility] 06/01/2017 10:03:15 07/06/20 14 Colonoscopy completed Aby moon MA [facility] 05/07/2018 10:46:35 Imaging Results None recorded. Procedure Notes None recorded. Medical Equipment None Reported. Allergies Allergen ID Allergen Name Allergen Category Reaction Reaction Severity Criticality Documentation Date Start Date Code Code System Note Provider Name and Address Organization Details Recorded Time 52683 latex environme nt,medica tion rash Not available Not available 06/13/20142013 30176 91 RxNorm Latex tape Shereen Massey MD [address] [address] [place] [address] 3 13:20:27 88388 Product containin g penicilli n (product) medicatio n other Not available Not available 06/13/20142013 98279 8001 SNOMED yeast infec tion CHAD Martinez [facility] 4 10:54:29 16535 adhesive environme nt,medica tion photosens itivity Not available Not available 11/09/2014 CHAD Carl [facility] 1 12:41:23 Medications Name Sig Start Date Stop Date Status Note LastModified by Organization Details LastModified Time clopidogr el 75 mg tabs 06/08 completed Not Available Not Available Not Available valsart/h ctz tab 80-12.5 06/08 completed Not Available Not Available Not Available spiriva respimat 2.5 mcg/act aers 09/21 completed Not Available Not Available Not Available narcan 4 mg/0.1ml liqd 06/08 completed Not Available Not Available Not Available metoprolo l succinate er 25 mg tb24 06/08 completed Not Available Not Available Not Available oxycod/ap ap tab 5-325mg 06/08 completed Not Available Not Available Not Available sertralin e hydrochlo ride 100 mg tabs 09/21 completed Not Available Not Available Not Available rosuvasta tin calcium 40 mg tabs 06/08 completed Not Available Not Available Not Available Prescript ion - Clarifica tion 12/30 completed Not Available Not Available Not Available gabapenti n 600 mg tabs 06/08 completed Not Available Not Available Not Available cilostazo l 100 mg tabs 06/08 completed Not Available Not Available Not Available lidocaine 5 % oint 06/08 completed Not Available Not Available Not Available cyclobenz aprine 10 mg tablet active Not Available Not Available No t Available amoxicill in 500 mg capsule TAKE 1 CAPSULE BY MOUTH TWICE DAILY 02/25 completed Not Available Not Available Not Available desonide 0.05 % topical cream 2 TIMES A DAY 01/26 completed RECORDED 01/26/20 12 8:49AM BY LIZ PATIÑO MA, OFFICE VISIT; Not Available Not Available Not Available cilostazo l 100 mg tablet TAKE 1 TABLET BY MOUTH TWICE DAILY 2024 active Not Available Not Available Not Avai lable bupropion HCl SR 150 mg tablet,12 hr sustained -release Take 1 tablet twice a day by oral route for 30 days. 09/12 completed Not Available Not Available Not Available atorvasta tin 80 mg tablet TAKE 1 TABLET BY MOUTH EVERY DAY 08/23 completed Not Available Not Available Not Available prednison e 10 mg tablet QD DIRECTED 03/24 completed RECORDED 04/23/20 07 3:01PM BY DILLON SANDERS MD, MEDICATI ON AUTO-GERARDO CTIVATIO N;4 DAILY FOR 3 DAYS, 3 DAILY FOR 3 DAYS, 2 DAILY FOR 3 DAYS, 1 DAILY FOR 3 DAYS. Not Available Not Available Not Available gabapenti n 600 mg tablet TAKE 3 TABLETS BY MOUTH EVERY NIGHT AT BEDTIME active Not Available Not Available No t Available Dilaudid 2 mg tablet EVERY FOUR HOURS active RECORDED 04/03/20 14 1:51PM BY ABY WADDELL MA, OFFICE VISIT; Not Available Not Available Not Available doxycycli ne hyclate 100 mg capsule Take 1 capsule twice a day by oral route for 10 days. 02/19 completed Not Available Not Available Not Available triamcino lone acetonide 0.5 % topical cream APPLY THIN LAYER TOPICALL Y TO THE AFFECTED AREA TWICE DAILY NEEDED 2023 active Not Available Not Available Not Avai lable azithromy trevor 250 mg tablet DIRECTED PER PACKAGE INSTRUCT IONS 03/15 completed Not Available Not Available Not Available fluconazo le 150 mg tablet Take 1 tablet every day by oral route as needed for yeast vaginiti s. 09/12 completed Not Available Not Available Not Available benzonata te 200 mg capsule 3 TIMES PER DAY NEEDED FOR COUGH 11/22 completed RECORDED 11/22/20 13 9:53AM BY ABY WADDELL MA, OFFICE VISIT; Not Available Not Available Not Available prednison e 20 mg tablet DAILY 11/24 completed RECORDED 11/25/20 12 8:02AM BY DILLON SANDERS MD, MEDICATI ON AUTO-GERARDO CTIVATIO N; Not Available Not Available Not Available sulfaceta mide sodium 10 % eye ointment Apply 1 inch every day by ophthalm ic route as directed for 7 days. 06/01 completed Not Available Not Available Not Available gabapenti n 400 mg capsule TID 04/25 completed RECORDED 04/25/20 11 10:41AM BY DILLON SANDERS MD, OFFICE VISIT; Not Available Not Available Not Available sertralin e 100 mg tablet TAKE 1 TABLET BY MOUTH EVERY DAY active Not Available Not Available No t Available valsartan 80 mg tablet TAKE 1 TABLET BY MOUTH EVERY DAY active Not Available Not Available No t Available amlodipin e 2.5 mg tablet TAKE 1 TABLET BY MOUTH EVERY DAY AT BEDTIME 07/03 completed Not Available Not Available Not Available clopidogr el 75 mg tablet TAKE 1 TABLET BY MOUTH EVERY DAY active Not Available Not Available No t Available amlodipin e 5 mg tablet QD 05/17 completed RECORDED 05/17/20 10 11:01AM BY DILLON SANDERS MD, OFFICE VISIT; Not Available Not Available Not Available sulfameth oxazole 800 mg-trimet hoprim 160 mg tablet TWO TIMES DAILY 12/06 completed RECORDED 02/02/20 13 11:28AM BY DILLON SANDERS MD, MEDICATI ON AUTO-GERARDO CTIVATIO N; Not Available Not Available Not Available peg-elect rolyte solution 420 gram oral solution active Not Available Not Available Not Available triamtere ne 37.5 mg-hydroc hlorothia zide 25 mg capsule QD 02/19 completed RECORDED 02/20/20 09 9:37AM BY DILLON SANDERS MD, OFFICE VISIT; Not Available Not Available Not Available amoxicill in 500 mg tablet TAKE 1 TABLET BY MOUTH EVERY 8 HOURS 12/21 completed Not Available Not Available Not Available Cholestyr amine Light 4 gram powder for suspensio n in a packet USE DIRECTED 1 PACKET DAILY 03/11 completed Not Available Not Available Not Available valsartan 80 mg-hydroc hlorothia zide 12.5 mg tablet TAKE 1/2 TABLET BY MOUTH EVERY DAY 08/11 completed Not Available Not Available Not Available oxycodone -acetamin ophen 5 mg-325 mg tablet TAKE 1 TABLET BY MOUTH THREE TIMES DAILY active Not Available Not Available No t Available temazepam 30 mg capsule QHS 01/24 completed RECORDED 01/24/20 11 11:07AM BY ABY WADDELL MA, OFFICE VISIT; Not Available Not Available Not Available benzonata te 100 mg capsule TAKE 1 CAPSULE BY MOUTH THREE TIMES DAILY FOR 10 DAYS NEEDED 06/29 completed Not Available Not Available Not Available neomycin- polymyxin -dexameth 3.5 mg/mL-10, 000 unit/mL-0 .1% eye drops SHAKE LIQUID AND INSTILL 1 DROP IN RIGHT EYE THREE TIMES DAILY 03/14 completed Not Available Not Available Not Available lisinopri l 10 mg tablet DAILY 10/25 completed RECORDED 10/25/20 10 11:18AM BY DILLON SANDERS MD, OFFICE VISIT; Not Available Not Available Not Available lidocaine 5 % topical patch FOR 12 HOURS PER DAY 12/30 completed Not Available Not Available Not Available warfarin 5 mg tablet DIRECTED 03/18 completed RECORDED 03/18/20 10 9:59AM BY PATTI COLON, BLESSING ON/ADDEN DUM; Not Available Not Available Not Available betametha sone dipropion ate 0.05 % topical cream TWO TIMES DAILY 01/24 completed RECORDED 01/24/20 11 11:07AM BY ABY WADDELL MA, OFFICE VISIT; Not Available Not Available Not Available amoxicill in 250 mg capsule Take 1 capsule every 6 hours by oral route for 10 days. active Not Available Not Available No t Available oxycodone -acetamin ophen 2.5 mg-325 mg tablet Take 1 tablet every day by oral route at bedtime for 30 days. 09/23 completed Not Available Not Available Not Available metoprolo l succinate ER 25 mg tablet,ex tended release 24 hr TAKE 1 TABLET BY MOUTH DAILY active Not Available Not Available No t Available irbesarta n 150 mg tablet DAILY 01/24 completed RECORDED 01/24/20 11 11:09AM BY ABY WADDELL MA, OFFICE VISIT;RE PLACED BY JOJO HCT Not Available Not Available Not Available cefuroxim e axetil 500 mg tablet 06/19 completed Not Available Not Available Not Available levofloxa trevor 500 mg tablet DAILY 11/01 completed RECORDED 11/29/20 11 11:06AM BY DILLON SANDERS MD, MEDICATI ON AUTO-GERARDO CTIVATIO N; Not Available Not Available Not Available albuterol sulfate HFA 90 mcg/actua tion aerosol inhaler INHALE 2 PUFFS BY MOUTH FOUR TIMES DAILY NEEDED active I rarely use this Not Available Not Available Not Available fluticaso ne propionat e 50 mcg/actua tion nasal spray,[facility] 09/12 completed Not Available Not Available Not Available sertralin e 50 mg tablet TAKE 1 TABLET BY MOUTH EVERY DAY 05/07 completed Not Available Not Available Not Available atenolol 50 mg tablet QD 2007 active RECORDED 08/11/20 08 10:32AM BY DILLON SANDERS MD, ANNOTATI ON/ADDEN DUM;WILL USE RYNE-OPE RATIVELY FOR VASCULAR PROCEDUR E. Not Available Not Available Not Available Calcium + D 600 mg-5 mcg (200 unit) tablet Take 1 tablet twice a day by oral route. active Not Available Not Available No t Available valsartan 160 mg-hydroc hlorothia zide 25 mg tablet active Not Available Not Available No t Available albuterol (refill) 90 mcg/actua tion aerosol inhaler Inhale 2 puffs 4 times a day by inhalati on route as needed. 02/27 completed Not Available Not Available Not Available Pneumovax -23 25 mcg/0.5 mL injection syringe 09/21 completed Not Available Not Available Not Available escitalop shikha 10 mg tablet QD 03/12 completed RECORDED 03/12/20 07 10:25AM BY DILLON SANDERS MD, OFFICE VISIT; Not Available Not Available Not Available ezetimibe 10 mg tablet TAKE 1 TABLET BY MOUTH DAILY active Not Available Not Available No t Available rosuvasta tin 40 mg tablet TAKE 1 TABLET BY MOUTH EVERY DAY IN THE EVENING active Not Available Not Available No t Available Boostrix Tdap 2.5 Lf unit-8 mcg-5 Lf/0.5 mL intramusc ular syringe 08/23 completed Not Available Not Available Not Available blood pressure monitor DAILY MONITORI NG OF BP FOR HTN 04/22 completed RECORDED 04/22/20 10 2:20PM BY GENO RAO ANNOTYOVANI ON/MERCY DUM; Not Available Not Available Not Available varenicli ne tartrate 1 mg tablet BID 12/10 completed RECORDED 12/26/19 08 4:46PM BY DILLON SANDERS MD, MEDICATI ON AUTO-GERARDO CTIVATIO N; Not Available Not Available Not Available Zostavax (PF) 19,400 unit/0.65 mL subcutane ous suspensio n ONCE 08/28 completed Not Available Not Available Not Available Chantix Starting Month Manoj 0.5 mg (11)-1 mg (42) tablets in dose pack BID 12/08 completed RECORDED 12/26/19 08 4:46PM BY DILLON SANDERS MD, MEDICATI ON AUTO-GERARDO CTIVATIO N; Not Available Not Available Not Available Clobetaso l E 01/24 completed RECORDED 01/24/20 11 11:08AM BY ABY WADDELL MA, OFFICE VISIT; Not Available Not Available Not Available lidocaine 5 % topical ointment APPLY TOPICALL Y EVERY MORNING AND WASH OFF EVERY 12 HOURS active Not Available Not Available No t Available Spiriva Respimat 2.5 mcg/actua tion solution for inhalatio n INHALE 2 PUFFS BY MOUTH EVERY DAY active I rarely use this Not Available Not Available Not Available Stiolto Respimat 2.5 mcg-2.5 mcg/actua tion solution for inhalatio n INHALE 2 PUFFS BY MOUTH 1 TIME EACH DAY active Not Available Not Available No t Available Narcan 4 mg/actuat ion nasal spray CALL 911. SPR CONTENTS OF ONE SPRAYER (0.1ML) INTO ONE NOSTRIL. REPEAT IN 2-3 MIN IF SYMPTOMS OF OPIOID EMERGENC Y PERSIST, ALTERNAT E NOSTRILS active Not Available Not Available No t Available Afluria Qd 2019- (36 mos up)(PF)60 mcg (15 mcg x4)/0.5 mL IM syringe ADM 0.5ML IM UTD 09/21 completed Not Available Not Available Not Available Vitals Date Recorded Heart rate Systolic And Diastolic Provider Name and Address Organization Details Last Updated DateTime 11/30/2024 52 /min 110/63 mm[Hg] Not Available [facility] 11/30/2024 14:15:02 Date Recorded Heart rate Systolic And Diastolic Provider Name and Address Organization Details Last Updated DateTime 12/03/2023 64 /min 116/66 mm[Hg] Not Available [facility] 12/03/2023 11:41:04 Date Recorded Heart rate Systolic And Diastolic Provider Name and Address Organization Details Last Updated DateTime 12/08/2024 54 /min 110/61 mm[Hg] Not Available [facility] 12/08/2024 12:40:04 Date Recorded Heart rate Systolic And Diastolic Provider Name and Address Organization Details Last Updated DateTime 12/09/2023 67 /min 105/51 mm[Hg] Not Available [facility] 12/09/2023 20:07:07 Date Recorded Heart rate Systolic And Diastolic Provider Name and Address Organization Details Last Updated DateTime 12/09/2024 55 /min 124/66 mm[Hg] Not Available [facility] 12/09/2024 13:09:07 Date Recorded Heart rate Systolic And Diastolic Provider Name and Address Organization Details Last Updated DateTime 12/11/2023 71 /min 99/75 mm[Hg] Not Available [facility] 12/11/2023 16:18:04 Date Recorded Heart rate Systolic And Diastolic Provider Name and Address Organization Details Last Updated DateTime 12/12/2023 68 /min 124/86 mm[Hg] Not Available [facility] 12/12/2023 14:37:01 Date Recorded Heart rate Systolic And Diastolic Provider Name and Address Organization Details Last Updated DateTime 12/15/2023 64 /min 116/64 mm[Hg] Not Available [facility] 12/15/2023 16:35:04 Date Recorded Heart rate Systolic And Diastolic Provider Name and Address Organization Details Last Updated DateTime 12/15/2024 67 /min 130/58 mm[Hg] Not Available [facility] 12/15/2024 14:11:03 Date Recorded Heart rate Systolic And Diastolic Provider Name and Address Organization Details Last Updated DateTime 12/19/2023 68 /min 125/56 mm[Hg] Not Available [facility] 12/19/2023 14:18:06 Date Recorded Heart rate Systolic And Diastolic Provider Name and Address Organization Details Last Updated DateTime 12/19/2024 69 /min 114/58 mm[Hg] Not Available [facility] 12/19/2024 16:41:02 Date Recorded Heart rate Systolic And Diastolic Provider Name and Address Organization Details Last Updated DateTime 12/21/2024 58 /min 121/78 mm[Hg] Not Available [facility] 12/21/2024 13:42:05 Date Recorded Heart rate Systolic And Diastolic Provider Name and Address Organization Details Last Updated DateTime 12/22/2023 63 /min 115/57 mm[Hg] Not Available [facility] 12/22/2023 10:52:06 Date Recorded Heart rate Systolic And Diastolic Provider Name and Address Organization Details Last Updated DateTime 12/25/2023 59 /min 120/59 mm[Hg] Not Available [facility] 12/25/2023 15:52:02 Date Recorded Heart rate Systolic And Diastolic Provider Name and Address Organization Details Last Updated DateTime 12/30/2023 72 /min 122/61 mm[Hg] Not Available [facility] 12/30/2023 11:27:10 Date Recorded Heart rate Systolic And Diastolic Provider Name and Address Organization Details Last Updated DateTime 01/01/2025 54 /min 117/60 mm[Hg] Not Available [facility] 01/01/2025 17:04:07 Date Recorded Heart rate Systolic And Diastolic Provider Name and Address Organization Details Last Updated DateTime 01/03/2024 61 /min 115/59 mm[Hg] Not Available [facility] 01/03/2024 14:06:04 Date Recorded Heart rate Systolic And Diastolic Provider Name and Address Organization Details Last Updated DateTime 01/03/2025 53 /min 125/87 mm[Hg] Not Available [facility] 01/03/2025 08:33:04 Date Recorded Heart rate Systolic And Diastolic Provider Name and Address Organization Details Last Updated DateTime 01/06/2025 59 /min 118/67 mm[Hg] Not Available [facility] 01/06/2025 14:02:03 Date Recorded Heart rate Systolic And Diastolic Provider Name and Address Organization Details Last Updated DateTime 01/10/2024 57 /min 121/84 mm[Hg] Not Available [facility] 01/10/2024 16:20:03 Date Recorded Heart rate Systolic And Diastolic Provider Name and Address Organization Details Last Updated DateTime 01/11/2025 72 /min 124/68 mm[Hg] Not Available [facility] 01/11/2025 19:15:04 Date Recorded Heart rate Systolic And Diastolic Provider Name and Address Organization Details Last Updated DateTime 01/12/2024 61 /min 122/75 mm[Hg] Not Available [facility] 01/12/2024 15:56:03 Date Recorded Heart rate Systolic And Diastolic Provider Name and Address Organization Details Last Updated DateTime 01/13/2025 59 /min 100/60 mm[Hg] Not Available [facility] 01/13/2025 19:51:03 Date Recorded Heart rate Systolic And Diastolic Provider Name and Address Organization Details Last Updated DateTime 01/14/2024 65 /min 92/55 mm[Hg] Not Available [facility] 01/14/2024 15:59:03 Date Recorded Heart rate Systolic And Diastolic Provider Name and Address Organization Details Last Updated DateTime 01/17/2024 67 /min 121/107 mm[Hg] Not Available [facility] 01/17/2024 13:36:05 Date Recorded Heart rate Systolic And Diastolic Provider Name and Address Organization Details Last Updated DateTime 01/18/2025 70 /min 110/56 mm[Hg] Not Available [facility] 01/18/2025 18:05:03 Date Recorded Heart rate Systolic And Diastolic Provider Name and Address Organization Details Last Updated DateTime 01/19/2024 89 /min 132/64 mm[Hg] Not Available [facility] 01/19/2024 16:49:04 Date Recorded Heart rate Systolic And Diastolic Provider Name and Address Organization Details Last Updated DateTime 01/21/2025 59 /min 110/56 mm[Hg] Not Available [facility] 01/21/2025 16:28:04 Date Recorded Heart rate Systolic And Diastolic Provider Name and Address Organization Details Last Updated DateTime 01/22/2024 58 /min 113/58 mm[Hg] Not Available [facility] 01/22/2024 09:15:07 Date Recorded Heart rate Systolic And Diastolic Provider Name and Address Organization Details Last Updated DateTime 01/22/2025 57 /min 101/56 mm[Hg] Not Available [facility] 01/22/2025 14:15:05 Date Recorded Heart rate Systolic And Diastolic Provider Name and Address Organization Details Last Updated DateTime 01/24/2024 59 /min 110/70 mm[Hg] Not Available [facility] 01/24/2024 18:10:06 Date Recorded Heart rate Systolic And Diastolic Provider Name and Address Organization Details Last Updated DateTime 01/26/2025 57 /min 119/64 mm[Hg] Not Available [facility] 01/26/2025 15:49:03 Date Recorded Heart rate Systolic And Diastolic Provider Name and Address Organization Details Last Updated DateTime 01/28/2024 95 /min 128/66 mm[Hg] Not Available [facility] 01/28/2024 13:28:02 Date Recorded Heart rate Systolic And Diastolic Provider Name and Address Organization Details Last Updated DateTime 01/31/2024 65 /min 115/61 mm[Hg] Not Available [facility] 01/31/2024 14:58:05 Date Recorded Heart rate Systolic And Diastolic Provider Name and Address Organization Details Last Updated DateTime 01/30/2025 58 /min 117/67 mm[Hg] Not Available [facility] 01/30/2025 11:37:06 Date Recorded Heart rate Systolic And Diastolic Provider Name and Address Organization Details Last Updated DateTime 02/03/2024 79 /min 99/64 mm[Hg] Not Available [facility] 02/03/2024 15:57:02 Date Recorded Heart rate Systolic And Diastolic Provider Name and Address Organization Details Last Updated DateTime 02/05/2024 69 /min 117/72 mm[Hg] Not Available [facility] 02/05/2024 17:47:03 Date Recorded Heart rate Systolic And Diastolic Provider Name and Address Organization Details Last Updated DateTime 02/05/2025 74 /min 124/77 mm[Hg] Not Available [facility] 02/05/2025 15:18:06 Date Recorded Heart rate Heart rate Systolic And Diastolic Systolic And Diastolic Provider Name and Address Organization Details Last Updated DateTime 02/09/2024 149 /min 97 /min 87/63 mm[Hg] 99/70 mm[Hg] Not Available [facility] 02/09/2024 14:02:01 Date Recorded Heart rate Systolic And Diastolic Provider Name and Address Organization Details Last Updated DateTime 02/11/2024 64 /min 123/63 mm[Hg] Not Available [facility] 02/11/2024 17:12:04 Date Recorded Heart rate Systolic And Diastolic Provider Name and Address Organization Details Last Updated DateTime 02/10/2025 60 /min 119/68 mm[Hg] Not Available [facility] 02/10/2025 12:49:38 Date Recorded Heart rate Systolic And Diastolic Provider Name and Address Organization Details Last Updated DateTime 02/12/2024 62 /min 109/72 mm[Hg] Not Available [facility] 02/12/2024 15:37:06 Date Recorded Heart rate Systolic And Diastolic Provider Name and Address Organization Details Last Updated DateTime 02/14/2025 59 /min 114/63 mm[Hg] [facility]/14/[facility]25 18:03:34 Date Recorded Heart rate Systolic And Diastolic Provider Name and Address Organization Details Last Updated DateTime 02/16/2024 73 /min 120/79 mm[Hg] Not Available [facility] 02/16/2024 20:24:03 Date Recorded Heart rate Heart rate Heart rate Heart rate Heart rate Heart rate Heart rate Systolic And Diastolic Systolic And Diastolic Systolic And Diastolic Systolic And Diastolic Systolic And Diastolic Systolic And Diastolic Systolic And Diastolic Provider Name and Address Organization Details Last Updated DateTime 153 /min 129 /min 131 /min 128 /min 155 /min 69 /min 64 /min 80/59 mm[Hg] 87/64 mm[Hg] 106/75 mm[Hg] 111/81 mm[Hg] 95/67 mm[Hg] 110/54 mm[Hg] 116/69 mm[Hg] Not Available [facility] 21:41:04 Date Recorded Heart rate Systolic And Diastolic Provider Name and Address Organization Details Last Updated DateTime 02/18/2025 59 /min 113/51 mm[Hg] Not Available [facility] 02/18/2025 14:35:38 Date Recorded Heart rate Systolic And Diastolic Provider Name and Address Organization Details Last Updated DateTime 02/20/2024 64 /min 107/61 mm[Hg] Not Available [facility] 02/20/2024 11:56:05 Date Recorded Heart rate Systolic And Diastolic Provider Name and Address Organization Details Last Updated DateTime 02/23/2024 62 /min 107/61 mm[Hg] Not Available [facility] 02/23/2024 14:50:02 Date Recorded Heart rate Systolic And Diastolic Provider Name and Address Organization Details Last Updated DateTime 02/23/2025 89 /min 110/90 mm[Hg] Not Available [facility] 02/23/2025 20:11:39 Date Recorded Heart rate Systolic And Diastolic Provider Name and Address Organization Details Last Updated DateTime 02/26/2024 70 /min 119/63 mm[Hg] Not Available [facility] 02/26/2024 15:46:04 Date Recorded Heart rate Systolic And Diastolic Provider Name and Address Organization Details Last Updated DateTime 02/27/2025 64 /min 124/65 mm[Hg] Not Available [facility] 02/27/2025 12:34:36 Date Recorded Heart rate Systolic And Diastolic Provider Name and Address Organization Details Last Updated DateTime 02/29/2024 62 /min 117/57 mm[Hg] Not Available [facility] 02/29/2024 16:06:04 Date Recorded Heart rate Systolic And Diastolic Provider Name and Address Organization Details Last Updated DateTime 03/03/2025 150 /min 125/79 mm[Hg] Not Available [facility] 03/03/2025 13:19:34 Date Recorded Heart rate Systolic And Diastolic Provider Name and Address Organization Details Last Updated DateTime 03/05/2024 64 /min 101/50 mm[Hg] Not Available [facility] 03/05/2024 09:17:08 Date Recorded Heart rate Systolic And Diastolic Provider Name and Address Organization Details Last Updated DateTime 03/06/2025 57 /min 92/50 mm[Hg] Not Available [facility] 03/06/2025 19:36:35 Date Recorded Heart rate Systolic And Diastolic Provider Name and Address Organization Details Last Updated DateTime 03/09/2025 53 /min 117/63 mm[Hg] Not Available [facility] 03/09/2025 17:34:37 Date Recorded Heart rate Systolic And Diastolic Provider Name and Address Organization Details Last Updated DateTime 03/10/2024 64 /min 106/57 mm[Hg] Not Available [facility] 03/10/2024 13:09:04 Date Recorded Heart rate Heart rate Systolic And Diastolic Systolic And Diastolic Provider Name and Address Organization Details Last Updated DateTime 03/11/2024 67 /min 62 /min 218/130 mm[Hg] 99/47 mm[Hg] Not Available [facility] 03/11/2024 10:34:03 Date Recorded Heart rate Systolic And Diastolic Provider Name and Address Organization Details Last Updated DateTime 03/11/2025 53 /min 112/50 mm[Hg] Not Available [facility] 03/11/2025 11:49:35 Date Recorded Heart rate Systolic And Diastolic Provider Name and Address Organization Details Last Updated DateTime 03/13/2025 62 /min 111/50 mm[Hg] Not Available [facility] 03/13/2025 22:49:35 Date Recorded Heart rate Systolic And Diastolic Provider Name and Address Organization Details Last Updated DateTime 03/15/2024 59 /min 116/57 mm[Hg] Not Available [facility] 03/15/2024 12:02:02 Date Recorded Heart rate Systolic And Diastolic Provider Name and Address Organization Details Last Updated DateTime 03/17/2024 57 /min 100/53 mm[Hg] Not Available [facility] 03/17/2024 10:52:06 Date Recorded Heart rate Systolic And Diastolic Provider Name and Address Organization Details Last Updated DateTime 03/22/2024 86 /min 110/61 mm[Hg] Not Available [facility] 03/22/2024 13:51:03 Date Recorded Heart rate Systolic And Diastolic Provider Name and Address Organization Details Last Updated DateTime 03/24/2025 57 /min 115/58 mm[Hg] Not Available [facility] 03/24/2025 10:39:36 Date Recorded Heart rate Systolic And Diastolic Provider Name and Address Organization Details Last Updated DateTime 03/26/2024 63 /min 105/62 mm[Hg] Not Available [facility] 03/26/2024 10:41:06 Date Recorded Heart rate Systolic And Diastolic Provider Name and Address Organization Details Last Updated DateTime 03/27/2025 61 /min 176/96 mm[Hg] Not Available [facility] 03/27/2025 14:51:37 Date Recorded Heart rate Heart rate Systolic And Diastolic Systolic And Diastolic Provider Name and Address Organization Details Last Updated DateTime 03/28/2025 62 /min 60 /min 86/45 mm[Hg] 90/46 mm[Hg] Not Available [facility] 03/28/2025 16:38:35 Date Recorded Heart rate Systolic And Diastolic Provider Name and Address Organization Details Last Updated DateTime 03/29/2024 65 /min 129/56 mm[Hg] Not Available [facility] 03/29/2024 14:18:03 Date Recorded Heart rate Systolic And Diastolic Provider Name and Address Organization Details Last Updated DateTime 04/02/2024 66 /min 110/57 mm[Hg] Not Available [facility] 04/02/2024 12:28:02 Date Recorded Heart rate Systolic And Diastolic Provider Name and Address Organization Details Last Updated DateTime 04/04/2024 67 /min 108/44 mm[Hg] Not Available [facility] 04/04/2024 13:30:06 Date Recorded Heart rate Systolic And Diastolic Provider Name and Address Organization Details Last Updated DateTime 04/04/2025 56 /min 122/58 mm[Hg] Not Available [facility] 04/04/2025 18:36:35 Date Recorded Heart rate Systolic And Diastolic Provider Name and Address Organization Details Last Updated DateTime 04/05/2025 56 /min 106/52 mm[Hg] Not Available [facility] 04/05/2025 12:21:40 Date Recorded Heart rate Systolic And Diastolic Provider Name and Address Organization Details Last Updated DateTime 04/11/2024 54 /min 104/54 mm[Hg] Not Available [facility] 04/11/2024 17:24:04 Date Recorded Heart rate Systolic And Diastolic Provider Name and Address Organization Details Last Updated DateTime 04/11/2025 55 /min 124/44 mm[Hg] Not Available [facility] 04/11/2025 12:40:37 Date Recorded Heart rate Systolic And Diastolic Provider Name and Address Organization Details Last Updated DateTime 04/14/2025 63 /min 117/61 mm[Hg] Not Available [facility] 04/14/2025 17:59:38 Date Recorded Heart rate Systolic And Diastolic Provider Name and Address Organization Details Last Updated DateTime 04/15/2024 63 /min 110/74 mm[Hg] Not Available [facility] 04/15/2024 11:56:01 Date Recorded Heart rate Systolic And Diastolic Provider Name and Address Organization Details Last Updated DateTime 04/16/2024 61 /min 118/58 mm[Hg] Not Available [facility] 04/16/2024 13:14:05 Date Recorded Heart rate Heart rate Systolic And Diastolic Systolic And Diastolic Provider Name and Address Organization Details Last Updated DateTime 04/21/2024 55 /min 64 /min 137/120 mm[Hg] 91/56 mm[Hg] Not Available [facility] 04/21/2024 14:34:06 Date Recorded Heart rate Systolic And Diastolic Provider Name and Address Organization Details Last Updated DateTime 04/21/2025 67 /min 127/61 mm[Hg] Not Available [facility] 04/21/2025 13:50:34 Date Recorded Heart rate Systolic And Diastolic Provider Name and Address Organization Details Last Updated DateTime 04/24/2024 82 /min 98/57 mm[Hg] Not Available [facility] 04/24/2024 16:41:03 Date Recorded Heart rate Systolic And Diastolic Provider Name and Address Organization Details Last Updated DateTime 04/25/2025 57 /min 115/47 mm[Hg] [facility]/25/[facility]25 11:50:36 Date Recorded Heart rate Systolic And Diastolic Provider Name and Address Organization Details Last Updated DateTime 04/26/2024 64 /min 103/55 mm[Hg] Not Available [facility] 04/26/2024 13:48:03 Date Recorded Heart rate Systolic And Diastolic Provider Name and Address Organization Details Last Updated DateTime 04/29/2024 65 /min 118/80 mm[Hg] Not Available [facility] 04/29/2024 17:34:03 Date Recorded Heart rate Systolic And Diastolic Provider Name and Address Organization Details Last Updated DateTime 05/02/2024 55 /min 109/54 mm[Hg] Not Available [facility] 05/02/2024 17:19:05 Date Recorded Heart rate Systolic And Diastolic Provider Name and Address Organization Details Last Updated DateTime 05/03/2025 65 /min 109/56 mm[Hg] Not Available [facility] 05/03/2025 15:39:37 Date Recorded Heart rate Systolic And Diastolic Provider Name and Address Organization Details Last Updated DateTime 05/06/2024 61 /min 111/65 mm[Hg] Not Available [facility] 05/06/2024 13:30:04 Date Recorded Heart rate Systolic And Diastolic Provider Name and Address Organization Details Last Updated DateTime 05/07/2024 63 /min 108/54 mm[Hg] Not Available [facility] 05/07/2024 16:10:08 Date Recorded Heart rate Systolic And Diastolic Provider Name and Address Organization Details Last Updated DateTime 05/08/2025 62 /min 120/65 mm[Hg] [facility]08[facility]25 16:48:39 Date Recorded Heart rate Systolic And Diastolic Provider Name and Address Organization Details Last Updated DateTime 2024 62 /min 98/55 mm[Hg] Not Available [facility] 0 2024 14:22:05 Date Recorded Heart rate Systolic And Diastolic Provider Name and Address Organization Details Last Updated DateTime 05/11/2024 66 /min 119/58 mm[Hg] Not Available [facility] 05/11/2024 18:05:02 Date Recorded Heart rate Systolic And Diastolic Provider Name and Address Organization Details Last Updated DateTime 05/14/2024 61 /min 104/60 mm[Hg] Not Available [facility] 05/14/2024 15:45:01 Date Recorded Heart rate Systolic And Diastolic Provider Name and Address Organization Details Last Updated DateTime 05/16/2025 57 /min 107/62 mm[Hg] Not Available [facility] 05/16/2025 15:26:36 Date Recorded Heart rate Systolic And Diastolic Provider Name and Address Organization Details Last Updated DateTime 05/17/2024 63 /min 91/59 mm[Hg] Not Available [facility] 05/17/2024 13:07:02 Date Recorded Heart rate Systolic And Diastolic Provider Name and Address Organization Details Last Updated DateTime 05/20/2025 61 /min 117/51 mm[Hg] Not Available [facility] 05/20/2025 15:14:35 Date Recorded Heart rate Systolic And Diastolic Provider Name and Address Organization Details Last Updated DateTime 05/22/2024 56 /min 109/53 mm[Hg] Not Available [facility] 05/22/2024 16:08:07 Date Recorded Heart rate Systolic And Diastolic Provider Name and Address Organization Details Last Updated DateTime 05/25/2024 62 /min 89/49 mm[Hg] Not Available [facility] 05/25/2024 15:50:04 Date Recorded Heart rate Systolic And Diastolic Provider Name and Address Organization Details Last Updated DateTime 05/26/2025 64 /min 117/48 mm[Hg] Not Available [facility] 05/26/2025 15:15:35 Date Recorded Heart rate Systolic And Diastolic Provider Name and Address Organization Details Last Updated DateTime 05/27/2024 58 /min 108/69 mm[Hg] Not Available [facility] 05/27/2024 14:22:02 Date Recorded Heart rate Systolic And Diastolic Provider Name and Address Organization Details Last Updated DateTime 05/31/2025 56 /min 141/50 mm[Hg] Not Available [facility] 05/31/2025 13:33:39 Date Recorded Heart rate Systolic And Diastolic Provider Name and Address Organization Details Last Updated DateTime 06/03/2024 67 /min 117/59 mm[Hg] Not Available [facility] 06/03/2024 14:19:04 Date Recorded Heart rate Systolic And Diastolic Provider Name and Address Organization Details Last Updated DateTime 06/05/2025 54 /min 114/59 mm[Hg] Not Available [facility] 06/05/2025 17:04:34 Date Recorded Heart rate Systolic And Diastolic Provider Name and Address Organization Details Last Updated DateTime 06/07/2024 69 /min 97/56 mm[Hg] Not Available [facility] 06/07/2024 14:44:04 Date Recorded Heart rate Systolic And Diastolic Provider Name and Address Organization Details Last Updated DateTime 06/09/2025 60 /min 105/46 mm[Hg] [facility]/09/[facility]25 12:30:37 Date Recorded Heart rate Systolic And Diastolic Provider Name and Address Organization Details Last Updated DateTime 06/11/2024 70 /min 109/52 mm[Hg] Not Available [facility] 06/11/2024 14:51:05 Date Recorded Heart rate Systolic And Diastolic Provider Name and Address Organization Details Last Updated DateTime 06/15/2024 64 /min 105/56 mm[Hg] Not Available [facility] 06/15/2024 16:24:06 Date Recorded Heart rate Systolic And Diastolic Provider Name and Address Organization Details Last Updated DateTime 06/15/2025 69 /min 103/54 mm[Hg] Not Available [facility] 06/15/2025 13:39:38 Date Recorded Heart rate Systolic And Diastolic Provider Name and Address Organization Details Last Updated DateTime 06/17/2025 73 /min 110/48 mm[Hg] Not Available [facility] 06/17/2025 16:43:35 Date Recorded Heart rate Systolic And Diastolic Provider Name and Address Organization Details Last Updated DateTime 06/20/2024 81 /min 96/52 mm[Hg] Not Available [facility] 06/20/2024 11:16:08 Date Recorded Heart rate Systolic And Diastolic Provider Name and Address Organization Details Last Updated DateTime 06/21/2025 59 /min 119/60 mm[Hg] [facility] 06/21/2025 15:01:28 Date Recorded Heart rate Systolic And Diastolic Provider Name and Address Organization Details Last Updated DateTime 06/23/2024 60 /min 110/48 mm[Hg] [facility] 11:28:05 Date Recorded Heart rate Systolic And Diastolic Provider Name and Address Organization Details Last Updated DateTime 06/29/2025 56 /min 104/64 mm[Hg] Not Available [facility] 06/29/2025 13:25:28 Date Recorded Body height Body mass index (BMI) Body weight Heart rate Oxygen saturation Body temperature Systolic And Diastolic Provider Name and Address Organization Details Last Updated DateTime 157.48 cm 24.1 kg/m2 25019.1 9 g 80 /min 96 % 97.9 [degF] 94/62 mm[Hg] Aby gunter MA [facility] 3 13:03:21 Date Recorded Heart rate Systolic And Diastolic Provider Name and Address Organization Details Last Updated DateTime 07/03/2025 49 /min 133/90 mm[Hg] Not Available [facility] 07/03/2025 10:31:30 Date Recorded Heart rate Systolic And Diastolic Provider Name and Address Organization Details Last Updated DateTime 07/04/2025 114 /min 130/73 mm[Hg] Not Available [facility] 07/04/2025 21:40:26 Date Recorded Heart rate Heart rate Systolic And Diastolic Systolic And Diastolic Provider Name and Address Organization Details Last Updated DateTime 07/05/2023 56 /min 56 /min 137/57 mm[Hg] 137/57 mm[Hg] Not Available [facility] 07/05/2023 15:19:04 Date Recorded Body height Body mass index (BMI) Body weight Heart rate Oxygen saturation Body temperature Systolic And Diastolic Provider Name and Address Organization Details Last Updated DateTime 157.48 cm 23.6 kg/m2 10058.4 2 g 60 /min 95 % 97.6 [degF] 101/59 mm[Hg] bAy gunter MA [facility] 4 13:09:17 Date Recorded Heart rate Systolic And Diastolic Provider Name and Address Organization Details Last Updated DateTime 07/06/2025 50 /min 98/45 mm[Hg] Not Available [facility] 0 07/06/2025 11:56:33 Date Recorded Heart rate Heart rate Systolic And Diastolic Systolic And Diastolic Provider Name and Address Organization Details Last Updated DateTime 07/07/2023 70 /min 70 /min 120/91 mm[Hg] 120/91 mm[Hg] Not Available [facility] 07/07/2023 14:58:06 Date Recorded Heart rate Heart rate Systolic And Diastolic Systolic And Diastolic Provider Name and Address Organization Details Last Updated DateTime 07/08/2023 63 /min 63 /min 112/63 mm[Hg] 112/63 mm[Hg] Not Available [facility] 07/08/2023 15:43:06 Date Recorded Heart rate Systolic And Diastolic Provider Name and Address Organization Details Last Updated DateTime 07/08/2024 67 /min 115/57 mm[Hg] Not Available [facility] 07/08/2024 15:20:03 Date Recorded Heart rate Heart rate Systolic And Diastolic Systolic And Diastolic Provider Name and Address Organization Details Last Updated DateTime 07/09/2023 57 /min 57 /min 111/55 mm[Hg] 111/55 mm[Hg] Not Available [facility] 07/09/2023 12:15:08 Date Recorded Heart rate Heart rate Systolic And Diastolic Systolic And Diastolic Provider Name and Address Organization Details Last Updated DateTime 07/10/2023 55 /min 55 /min 122/62 mm[Hg] 122/62 mm[Hg] Not Available [facility] 07/10/2023 11:57:12 Date Recorded Heart rate Systolic And Diastolic Provider Name and Address Organization Details Last Updated DateTime 07/10/2025 53 /min 112/57 mm[Hg] Not Available [facility] 07/10/2025 13:22:29 Date Recorded Heart rate Heart rate Systolic And Diastolic Systolic And Diastolic Provider Name and Address Organization Details Last Updated DateTime 07/12/2023 68 /min 68 /min 94/61 mm[Hg] 94/61 mm[Hg] Not Available [facility] 07/12/2023 14:41:06 Date Recorded Heart rate Heart rate Systolic And Diastolic Systolic And Diastolic Provider Name and Address Organization Details Last Updated DateTime 07/13/2023 67 /min 67 /min 105/58 mm[Hg] 105/58 mm[Hg] Not Available [facility] 07/13/2023 15:10:06 Date Recorded Heart rate Systolic And Diastolic Provider Name and Address Organization Details Last Updated DateTime 07/13/2024 60 /min 113/49 mm[Hg] Not Available [facility] 07/13/2024 14:07:04 Date Recorded Heart rate Systolic And Diastolic Provider Name and Address Organization Details Last Updated DateTime 07/16/2023 64 /min 91/56 mm[Hg] Not Available [facility] 0 07/16/2023 17:17:03 Date Recorded Heart rate Systolic And Diastolic Provider Name and Address Organization Details Last Updated DateTime 07/16/2025 51 /min 103/49 mm[Hg] Not Available [facility] 07/16/2025 14:46:28 Date Recorded Heart rate Systolic And Diastolic Provider Name and Address Organization Details Last Updated DateTime 07/17/2023 60 /min 103/62 mm[Hg] Not Available [facility] 07/17/2023 15:32:03 Date Recorded Heart rate Systolic And Diastolic Provider Name and Address Organization Details Last Updated DateTime 07/18/2024 74 /min 103/52 mm[Hg] Not Available [facility] 07/18/2024 17:48:02 Date Recorded Heart rate Systolic And Diastolic Provider Name and Address Organization Details Last Updated DateTime 07/20/2023 86 /min 118/63 mm[Hg] Not Available [facility] 07/20/2023 17:02:02 Date Recorded Heart rate Systolic And Diastolic Provider Name and Address Organization Details Last Updated DateTime 07/20/2025 53 /min 111/56 mm[Hg] [facility] Available [facility] 07/20[facility]25 15:55:27 Date Recorded Heart rate Heart rate Systolic And Diastolic Systolic And Diastolic Provider Name and Address Organization Details Last Updated DateTime 07/21/2024 130 /min 137 /min 185/115 mm[Hg] 131/79 mm[Hg] Not Available [facility] 07/21/2024 13:41:02 Date Recorded Heart rate Systolic And Diastolic Provider Name and Address Organization Details Last Updated DateTime 07/23/2024 65 /min 102/51 mm[Hg] Not Available [facility] 07/23/2024 23:47:02 Date Recorded Heart rate Heart rate Heart rate Systolic And Diastolic Systolic And Diastolic Systolic And Diastolic Provider Name and Address Organization Details Last Updated DateTime 3 142 /min 132 /min 93 /min 124/99 mm[Hg] 88/65 mm[Hg] 91/48 mm[Hg] Not Available [facility] 20:45:05 Date Recorded Heart rate Systolic And Diastolic Provider Name and Address Organization Details Last Updated DateTime 07/25/2024 75 /min 140/115 mm[Hg] Not Available [facility] 07/25/2024 09:15:08 Date Recorded Heart rate Systolic And Diastolic Provider Name and Address Organization Details Last Updated DateTime 07/27/2025 53 /min 117/50 mm[Hg] Not Available [facility] 07/27/2025 14:33:32 Date Recorded Heart rate Systolic And Diastolic Provider Name and Address Organization Details Last Updated DateTime 07/28/2023 60 /min 93/50 mm[Hg] Not Available [facility] 0 07/28/2023 11:41:02 Date Recorded Heart rate Systolic And Diastolic Provider Name and Address Organization Details Last Updated DateTime 07/29/2024 65 /min 112/53 mm[Hg] Not Available [facility] 07/29/2024 15:12:02 Date Recorded Heart rate Systolic And Diastolic Provider Name and Address Organization Details Last Updated DateTime 08/01/2023 100 /min 83/54 mm[Hg] Not Available [facility] 0 08/01/2023 15:57:03 Date Recorded Heart rate Systolic And Diastolic Provider Name and Address Organization Details Last Updated DateTime 08/01/2024 60 /min 125/98 mm[Hg] Not Available [facility] 08/01/2024 17:12:03 Date Recorded Heart rate Systolic And Diastolic Provider Name and Address Organization Details Last Updated DateTime 08/03/2023 61 /min 105/65 mm[Hg] Not Available [facility] 08/03/2023 16:18:03 Date Recorded Heart rate Systolic And Diastolic Provider Name and Address Organization Details Last Updated DateTime 08/05/2023 62 /min 111/71 mm[Hg] Not Available [facility] 08/05/2023 11:58:05 Date Recorded Heart rate Systolic And Diastolic Provider Name and Address Organization Details Last Updated DateTime 08/05/2024 61 /min 113/66 mm[Hg] Not Available [facility] 08/05/2024 18:43:05 Date Recorded Heart rate Heart rate Heart rate Systolic And Diastolic Systolic And Diastolic Systolic And Diastolic Provider Name and Address Organization Details Last Updated DateTime 174 /min 156 /min 98 /min 119/81 mm[Hg] 125/68 mm[Hg] 115/60 mm[Hg] Not Available [facility] 16:59:03 Date Recorded Heart rate Systolic And Diastolic Provider Name and Address Organization Details Last Updated DateTime 08/09/2025 53 /min 112/63 mm[Hg] Not Available [facility] 08/09/2025 16:21:26 Date Recorded Heart rate Systolic And Diastolic Provider Name and Address Organization Details Last Updated DateTime 08/10/2023 84 /min 101/62 mm[Hg] Not Available [facility] 08/10/2023 15:34:03 Date Recorded Heart rate Systolic And Diastolic Provider Name and Address Organization Details Last Updated DateTime 08/10/2024 56 /min 107/52 mm[Hg] Not Available [facility] 08/10/2024 11:33:08 Date Recorded Heart rate Systolic And Diastolic Provider Name and Address Organization Details Last Updated DateTime 08/11/2023 64 /min 103/66 mm[Hg] Not Available [facility] 08/11/2023 13:19:06 Date Recorded Heart rate Systolic And Diastolic Provider Name and Address Organization Details Last Updated DateTime 08/11/2024 61 /min 113/64 mm[Hg] Not Available [facility] 08/11/2024 12:00:04 Date Recorded Heart rate Systolic And Diastolic Provider Name and Address Organization Details Last Updated DateTime 08/12/2023 61 /min 114/70 mm[Hg] Not Available [facility] 08/12/2023 15:54:05 Date Recorded Body height Body mass index (BMI) Body weight Oxygen saturation Heart rate Body temperature Systolic And Diastolic Provider Name and Address Organization Details Last Updated DateTime 157.48 cm 23.5 kg/m2 77596.2 2 g 96 % 63 /min 97.5 [degF] 106/62 mm[Hg] Yolanda Tatum MA [facility] 13:33:27 Date Recorded Heart rate Systolic And Diastolic Provider Name and Address Organization Details Last Updated DateTime 08/13/2024 67 /min 107/53 mm[Hg] Not Available [facility] 08/13/2024 14:40:01 Date Recorded Heart rate Systolic And Diastolic Provider Name and Address Organization Details Last Updated DateTime 08/16/2023 72 /min 94/58 mm[Hg] Not Available [facility] 0 08/16/2023 16:51:03 Date Recorded Heart rate Heart rate Systolic And Diastolic Systolic And Diastolic Provider Name and Address Organization Details Last Updated DateTime 08/17/2024 127 /min 56 /min 101/75 mm[Hg] 121/59 mm[Hg] Not Available [facility] 08/17/2024 10:45:07 Date Recorded Heart rate Systolic And Diastolic Provider Name and Address Organization Details Last Updated DateTime 08/17/2025 93 /min 147/80 mm[Hg] Not Available [facility] 08/17/2025 14:56:29 Date Recorded Heart rate Systolic And Diastolic Provider Name and Address Organization Details Last Updated DateTime 08/18/2024 63 /min 106/57 mm[Hg] Not Available [facility] 08/18/2024 13:12:03 Date Recorded Heart rate Systolic And Diastolic Provider Name and Address Organization Details Last Updated DateTime 08/20/2024 50 /min 122/67 mm[Hg] Not Available [facility] 08/20/2024 19:10:04 Date Recorded Heart rate Systolic And Diastolic Provider Name and Address Organization Details Last Updated DateTime 08/20/2025 73 /min 107/57 mm[Hg] Not Available [facility] 08/20/2025 17:50:26 Date Recorded Heart rate Systolic And Diastolic Provider Name and Address Organization Details Last Updated DateTime 08/21/2023 84 /min 90/71 mm[Hg] Not Available [facility] 0 08/21/2023 21:35:03 Date Recorded Heart rate Systolic And Diastolic Provider Name and Address Organization Details Last Updated DateTime 08/22/2023 70 /min 114/67 mm[Hg] Not Available [facility] 08/22/2023 17:39:07 Date Recorded Heart rate Heart rate Systolic And Diastolic Systolic And Diastolic Provider Name and Address Organization Details Last Updated DateTime 08/22/2024 80 /min 66 /min 153/128 mm[Hg] 105/44 mm[Hg] Not Available [facility] 08/22/2024 17:11:04 Date Recorded Heart rate Systolic And Diastolic Provider Name and Address Organization Details Last Updated DateTime 08/23/2024 58 /min 100/49 mm[Hg] Not Available [facility] 08/23/2024 12:15:07 Date Recorded Heart rate Systolic And Diastolic Provider Name and Address Organization Details Last Updated DateTime 08/25/2023 61 /min 89/58 mm[Hg] Not Available [facility] 0 08/25/2023 19:27:02 Date Recorded Heart rate Systolic And Diastolic Provider Name and Address Organization Details Last Updated DateTime 08/25/2024 56 /min 124/67 mm[Hg] Not Available [facility] 08/25/2024 16:06:07 Date Recorded Heart rate Systolic And Diastolic Provider Name and Address Organization Details Last Updated DateTime 08/25/2025 64 /min 110/48 mm[Hg] Not Available [facility] 08/25/2025 15:26:28 Date Recorded Heart rate Systolic And Diastolic Provider Name and Address Organization Details Last Updated DateTime 08/27/2024 62 /min 111/52 mm[Hg] Not Available [facility] 08/27/2024 12:00:10 Date Recorded Heart rate Systolic And Diastolic Provider Name and Address Organization Details Last Updated DateTime 08/29/2023 62 /min 93/57 mm[Hg] Not Available [facility] 0 08/29/2023 20:30:03 Date Recorded Heart rate Systolic And Diastolic Provider Name and Address Organization Details Last Updated DateTime 08/29/2024 66 /min 122/58 mm[Hg] Not Available [facility] 08/29/2024 16:27:02 Date Recorded Heart rate Systolic And Diastolic Provider Name and Address Organization Details Last Updated DateTime 08/31/2023 67 /min 114/60 mm[Hg] Not Available [facility] 08/31/2023 16:20:02 Date Recorded Heart rate Systolic And Diastolic Provider Name and Address Organization Details Last Updated DateTime 08/31/2025 57 /min 125/41 mm[Hg] Not Available [facility] 08/31/2025 18:39:28 Date Recorded Heart rate Systolic And Diastolic Provider Name and Address Organization Details Last Updated DateTime 09/03/2024 62 /min 103/60 mm[Hg] Not Available [facility] 09/03/2024 15:13:02 Date Recorded Heart rate Systolic And Diastolic Provider Name and Address Organization Details Last Updated DateTime 09/03/2025 59 /min 109/56 mm[Hg] Not Available [facility] 09/03/2025 21:46:29 Date Recorded Body height Heart rate Body temperature Body mass index (BMI) Body weight Systolic And Diastolic Provider Name and Address Organization Details Last Updated DateTime 157.48 cm 60 /min 97.6 [degF] 24.2 kg/m2 77028.6 3 g 105/50 mm[Hg] Aby gunter MA [facility] 16:05:27 Date Recorded Heart rate Systolic And Diastolic Provider Name and Address Organization Details Last Updated DateTime 09/04/2023 60 /min 105/50 mm[Hg] Not Available [facility] 09/04/2023 15:25:03 Date Recorded Heart rate Systolic And Diastolic Provider Name and Address Organization Details Last Updated DateTime 09/04/2024 62 /min 129/75 mm[Hg] Not Available [facility] 09/04/2024 14:45:04 Date Recorded Heart rate Systolic And Diastolic Provider Name and Address Organization Details Last Updated DateTime 09/06/2025 70 /min 111/45 mm[Hg] Not Available [facility] 09/06/2025 19:27:27 Date Recorded Heart rate Systolic And Diastolic Provider Name and Address Organization Details Last Updated DateTime 09/09/2023 88 /min 116/62 mm[Hg] Not Available [facility] 09/09/2023 18:06:03 Date Recorded Heart rate Systolic And Diastolic Provider Name and Address Organization Details Last Updated DateTime 09/09/2024 62 /min 102/59 mm[Hg] Not Available [facility] 09/09/2024 11:17:07 Date Recorded Heart rate Systolic And Diastolic Provider Name and Address Organization Details Last Updated DateTime 09/09/2025 64 /min 108/57 mm[Hg] Not Available [facility] 09/09/2025 08:36:29 Date Recorded Heart rate Systolic And Diastolic Provider Name and Address Organization Details Last Updated DateTime 09/13/2024 60 /min 118/67 mm[Hg] Not Available [facility] 09/13/2024 11:02:03 Date Recorded Heart rate Systolic And Diastolic Provider Name and Address Organization Details Last Updated DateTime 09/13/2025 63 /min 123/81 mm[Hg] Not Available [facility] 09/13/2025 07:52:27 Date Recorded Heart rate Systolic And Diastolic Provider Name and Address Organization Details Last Updated DateTime 09/14/2023 58 /min 105/58 mm[Hg] Not Available [facility] 09/14/2023 12:43:05 Date Recorded Heart rate Systolic And Diastolic Provider Name and Address Organization Details Last Updated DateTime 09/15/2023 59 /min 118/71 mm[Hg] Not Available [facility] 09/15/2023 12:19:07 Date Recorded Heart rate Systolic And Diastolic Provider Name and Address Organization Details Last Updated DateTime 09/15/2024 53 /min 115/60 mm[Hg] Not Available [facility] 09/15/2024 10:43:10 Date Recorded Heart rate Systolic And Diastolic Provider Name and Address Organization Details Last Updated DateTime 09/16/2024 63 /min 85/51 mm[Hg] Not Available [facility] 1 15:35:04 Date Recorded Heart rate Systolic And Diastolic Provider Name and Address Organization Details Last Updated DateTime 09/18/2023 63 /min 124/58 mm[Hg] Not Available [facility] 09/18/2023 13:39:04 Date Recorded Heart rate Systolic And Diastolic Provider Name and Address Organization Details Last Updated DateTime 09/19/2024 69 /min 112/78 mm[Hg] Not Available [facility] 09/19/2024 17:16:02 Date Recorded Heart rate Systolic And Diastolic Provider Name and Address Organization Details Last Updated DateTime 09/21/2023 68 /min 125/62 mm[Hg] Not Available [facility] 09/21/2023 16:40:02 Date Recorded Heart rate Systolic And Diastolic Provider Name and Address Organization Details Last Updated DateTime 09/21/2025 87 /min 131/109 mm[Hg] Not Available [facility] 09/21/2025 10:25:30 Date Recorded Heart rate Systolic And Diastolic Provider Name and Address Organization Details Last Updated DateTime 09/22/2024 58 /min 108/59 mm[Hg] Not Available [facility] 09/22/2024 15:11:04 Date Recorded Heart rate Systolic And Diastolic Provider Name and Address Organization Details Last Updated DateTime 09/23/2025 60 /min 116/55 mm[Hg] Not Available [facility] 09/23/2025 11:54:26 Date Recorded Heart rate Systolic And Diastolic Provider Name and Address Organization Details Last Updated DateTime 09/24/2023 72 /min 148/88 mm[Hg] Not Available [facility] 09/24/2023 12:00:04 Date Recorded Body weight Body mass index (BMI) Body height Heart rate Oxygen saturation Body temperature Systolic And Diastolic Provider Name and Address Organization Details Last Updated DateTime 80328.4 2 g 23.6 kg/m2 157.48 cm 63 /min 95 % 97.7 [degF] 109/61 mm[Hg] Aby gunter MA [facility] 11:35:42 Date Recorded Heart rate Systolic And Diastolic Provider Name and Address Organization Details Last Updated DateTime 09/27/2024 63 /min 117/53 mm[Hg] Not Available [facility] 09/27/2024 11:10:03 Date Recorded Heart rate Systolic And Diastolic Provider Name and Address Organization Details Last Updated DateTime 09/29/2023 61 /min 119/60 mm[Hg] Not Available [facility] 09/29/2023 10:23:03 Date Recorded Heart rate Heart rate Systolic And Diastolic Systolic And Diastolic Provider Name and Address Organization Details Last Updated DateTime 09/30/2024 77 /min 61 /min 150/136 mm[Hg] 113/61 mm[Hg] Not Available [facility] 09/30/2024 11:54:02 Date Recorded Heart rate Systolic And Diastolic Provider Name and Address Organization Details Last Updated DateTime 10/02/2023 58 /min 124/74 mm[Hg] Not Available [facility] 10/02/2023 12:54:04 Date Recorded Heart rate Systolic And Diastolic Provider Name and Address Organization Details Last Updated DateTime 10/04/2025 60 /min 123/48 mm[Hg] Not Available [facility] 10/04/2025 12:05:27 Date Recorded Heart rate Systolic And Diastolic Provider Name and Address Organization Details Last Updated DateTime 10/07/2024 54 /min 124/78 mm[Hg] Not Available [facility] 10/07/2024 12:26:03 Date Recorded Heart rate Systolic And Diastolic Provider Name and Address Organization Details Last Updated DateTime 10/10/2023 63 /min 101/57 mm[Hg] Not Available [facility] 10/10/2023 12:31:01 Date Recorded Heart rate Systolic And Diastolic Provider Name and Address Organization Details Last Updated DateTime 10/10/2025 58 /min 109/58 mm[Hg] Not Available [facility] 10/10/2025 15:40:30 Date Recorded Heart rate Systolic And Diastolic Provider Name and Address Organization Details Last Updated DateTime 10/11/2025 57 /min 104/57 mm[Hg] Not Available [facility] 10/11/2025 13:25:30 Date Recorded Heart rate Systolic And Diastolic Provider Name and Address Organization Details Last Updated DateTime 10/13/2024 86 /min 120/61 mm[Hg] Not Available [facility] 10/13/2024 08:49:07 Date Recorded Heart rate Systolic And Diastolic Provider Name and Address Organization Details Last Updated DateTime 10/14/2023 65 /min 83/60 mm[Hg] Not Available [facility] 1 12/14/2022 11:47:07 Date Recorded Heart rate Systolic And Diastolic Provider Name and Address Organization Details Last Updated DateTime 10/15/2025 53 /min 126/52 mm[Hg] Not Available [facility] 10/15/2025 16:34:26 Date Recorded Heart rate Systolic And Diastolic Provider Name and Address Organization Details Last Updated DateTime 10/16/2024 60 /min 126/68 mm[Hg] Not Available [facility] 10/16/2024 11:18:06 Date Recorded Heart rate Systolic And Diastolic Provider Name and Address Organization Details Last Updated DateTime 10/17/2023 63 /min 126/61 mm[Hg] Not Available [facility] 10/17/2023 10:24:02 Date Recorded Heart rate Systolic And Diastolic Provider Name and Address Organization Details Last Updated DateTime 10/19/2025 61 /min 111/48 mm[Hg] Not Available [facility] 10/19/2025 15:08:31 Date Recorded Heart rate Systolic And Diastolic Provider Name and Address Organization Details Last Updated DateTime 10/20/2023 61 /min 118/63 mm[Hg] Not Available [facility] 10/20/2023 11:13:10 Date Recorded Heart rate Systolic And Diastolic Provider Name and Address Organization Details Last Updated DateTime 10/23/2023 67 /min 96/70 mm[Hg] Not Available [facility] 1 12/23/2022 14:51:04 Date Recorded Heart rate Systolic And Diastolic Provider Name and Address Organization Details Last Updated DateTime 10/24/2025 63 /min 125/98 mm[Hg] Not Available [facility] 10/24/2025 13:18:27 Date Recorded Heart rate Systolic And Diastolic Provider Name and Address Organization Details Last Updated DateTime 10/25/2024 58 /min 121/60 mm[Hg] Not Available [facility] 10/25/2024 17:48:04 Date Recorded Heart rate Systolic And Diastolic Provider Name and Address Organization Details Last Updated DateTime 10/26/2023 60 /min 124/64 mm[Hg] Not Available [facility] 10/26/2023 14:18:04 Date Recorded Heart rate Systolic And Diastolic Provider Name and Address Organization Details Last Updated DateTime 10/27/2025 60 /min 112/64 mm[Hg] Not Available [facility] 10/27/2025 23:01:26 Date Recorded Heart rate Systolic And Diastolic Provider Name and Address Organization Details Last Updated DateTime 10/30/2023 58 /min 123/67 mm[Hg] Not Available [facility] 10/30/2023 12:26:08 Date Recorded Heart rate Systolic And Diastolic Provider Name and Address Organization Details Last Updated DateTime 11/01/2024 79 /min 99/74 mm[Hg] Not Available [facility] 1 01/02/2024 11:40:04 Date Recorded Heart rate Systolic And Diastolic Provider Name and Address Organization Details Last Updated DateTime 11/01/2025 71 /min 122/64 mm[Hg] Not Available [facility] 11/01/2025 13:57:26 Date Recorded Heart rate Systolic And Diastolic Provider Name and Address Organization Details Last Updated DateTime 11/02/2024 58 /min 111/59 mm[Hg] Not Available [facility] 11/02/2024 13:04:02 Date Recorded Heart rate Systolic And Diastolic Provider Name and Address Organization Details Last Updated DateTime 11/03/2023 58 /min 114/60 mm[Hg] Not Available [facility] 11/03/2023 18:21:01 Date Recorded Heart rate Systolic And Diastolic Provider Name and Address Organization Details Last Updated DateTime 11/05/2024 58 /min 112/63 mm[Hg] Not Available [facility] 11/05/2024 08:46:10 Date Recorded Heart rate Systolic And Diastolic Provider Name and Address Organization Details Last Updated DateTime 11/09/2023 85 /min 147/82 mm[Hg] Not Available [facility] 11/09/2023 13:24:04 Date Recorded Heart rate Systolic And Diastolic Provider Name and Address Organization Details Last Updated DateTime 11/09/2024 57 /min 121/68 mm[Hg] Not Available [facility] 11/09/2024 18:02:02 Date Recorded Heart rate Systolic And Diastolic Provider Name and Address Organization Details Last Updated DateTime 11/13/2024 69 /min 123/52 mm[Hg] Not Available [facility] 11/13/2024 14:21:04 Date Recorded Heart rate Systolic And Diastolic Provider Name and Address Organization Details Last Updated DateTime 11/14/2023 62 /min 110/58 mm[Hg] Not Available [facility] 11/14/2023 15:13:02 Date Recorded Heart rate Systolic And Diastolic Provider Name and Address Organization Details Last Updated DateTime 11/17/2023 78 /min 121/67 mm[Hg] Not Available [facility] 11/17/2023 12:02:05 Date Recorded Heart rate Systolic And Diastolic Provider Name and Address Organization Details Last Updated DateTime 11/17/2024 56 /min 122/64 mm[Hg] Not Available [facility] 11/17/2024 12:13:02 Date Recorded Heart rate Systolic And Diastolic Provider Name and Address Organization Details Last Updated DateTime 11/19/2023 61 /min 116/72 mm[Hg] Not Available [facility] 11/19/2023 13:15:07 Date Recorded Heart rate Systolic And Diastolic Provider Name and Address Organization Details Last Updated DateTime 11/22/2024 53 /min 105/63 mm[Hg] Not Available [facility] 11/22/2024 15:35:04 Date Recorded Heart rate Systolic And Diastolic Provider Name and Address Organization Details Last Updated DateTime 11/23/2023 72 /min 126/66 mm[Hg] Not Available [facility] 11/23/2023 14:41:03 Date Recorded Heart rate Systolic And Diastolic Provider Name and Address Organization Details Last Updated DateTime 11/25/2024 58 /min 113/53 mm[Hg] Not Available [facility] 11/25/2024 12:29:07 Date Recorded Heart rate Systolic And Diastolic Provider Name and Address Organization Details Last Updated DateTime 11/26/2023 54 /min 112/63 mm[Hg] Not Available [facility] 11/26/2023 10:17:02 Date Recorded Heart rate Systolic And Diastolic Provider Name and Address Organization Details Last Updated DateTime 11/27/2023 66 /min 119/58 mm[Hg] Not Available [facility] 11/27/2023 15:16:01 Social History Question Answer Notes LastModified by Organizat ion Details LastModified Time Tobacco Smoking Status Current Every Day Smoker Aby Howell MA [facility] 03/11/2019 10:33:24 Do You Have An Advance Directive? Yes HCP [email or web address] Information not available 08/11/2022 Is Blood Transfusion Acceptable In An Emergency? Yes Information not available 08/23/2015 What Is Your Level Of Caffeine Consumption? Moderate Coffee, 8+ Servings Per Day Information not available 07/03/2023 How Much Tobacco Do You Chew? None Information not available 08/23/2015 What Type Of Diet Are You Following? REGULAR Information not available 11/09/2014 Which Illicit Or Recreational Drugs Have You Used? None Information not available 08/23/2015 Live Alone Or With Others? Alone Son (Karri) Is Hardly Ever Home Information not available 07/03/2023 Do You Take Precautions To Prevent Distracted Driving? Yes Information not available 08/23/2015 How Often Do You Need To Have Someone Help You When You Read Instructions, Pamphlets, Or Other Written Material From Your Doctor Or Pharmacy? Never Information not available 08/23/2015 Have You Served In The ? No [email or web address] Information not available 02/27/2017 Have You Or Anyone In Your Household Had Any Of The Following Symptoms In The Last 14 Days: Sore Throat, Cough, Chills, Body Aches For Unknown Reasons, Shortness Of Breath For Unknown Reasons, Loss Of Smell, Loss Of Taste, Fever At Or Greater Than 100 Degrees Fahrenheit? No Information not available 09/21/2020 Are You Or Anyone In Your Household A Health Care Provider Or Emergency Responder? No Information not available 09/21/2020 To The Best Of Your Knowledge Have You Been In Close Proximity To Any Individual Who Tested Positive For COVID-19? No Information not available 09/21/2020 *AWV ONLY* Are You Presently Prescribed Opioid Medication By PCP Or Specialist? If YES -Provider Assess The Benefit For Other, Non-opioid Pain Therapies Instead, Even If The Patient Does Not Have OUD But Is Possibly At Risk. No Information not available 09/21/2020 What Was The Date Of Your Most Recent Tobacco Screening? 09/26/2025 Information not available 09/26/2025 How Many Children Do You Have? 2 Andrew Information not available 08/23/2015 What Is Your Current Pack Years? 20-packye ars Information not available 08/11/2022 Do You Use Your Seat Belt Or Car Seat Routinely? Yes Information not available 02/25/2022 Seat Belts Used Routinely Yes [email or web address] Information not available 08/11/2022 Are You Sexually Active? No Information not available 08/23/2015 Smoke Alarm In Home Yes [email or web address] Information not available 08/11/2022 Do You Have Smoke And Carbon Monoxide Detectors In Your Home? Yes Information not available 02/25/2022 At What Age Did You Start Smoking Tobacco? 16 Information not available 11/09/2014 Are You Passively Exposed To Smoke? No Information not available 08/23/2015 How Much Tobacco Do You Smoke? 0.5 PPD Up To 3/4 PPD Information not available 07/03/2023 General Stress Level Medium [email or web address] Information not available 08/11/2022 Do You Use Sunscreen Routinely? Yes Information not available 08/24/2014 How Many Years Have You Smoked Tobacco? 50 Information not available 02/25/2022 Sex: Unknown Functional Status Question Answer Note LastModified by Organizat ion Details LastModified Time Do you use any illicit or recreational drugs? No [email or web address] Information not available 08/11/2022 Do you or have you ever used any other forms of tobacco or nicotine? No [email or web address] Information not available 08/11/2022 What is your level of alcohol consumption? Occasional Information not available 08/24/2014 Do you or have you ever used smokeless tobacco? Never used smokeless tobacco Information not available 09/26/2019 Are you currently employed? No Information not available 08/24/2014 Are you able to walk independently without assistance or assistive devices? YESLIMIT uses cane and crutches as well Information not available 07/05/2024 Are you able to care for yourself independently? Yes Information not available 08/24/2014 What is your occupation? disabled Information not available 06/01/2017 Do you or have you ever used e-cigarettes or vape? Never used electronic cigarettes [email or web address] Information not available 08/11/2022 What is your exercise level? None Information not available 02/25/2022 Mental Status None recorded. Family History Relationship Description Onset Age of this Age Resolved Age Notes LastModified by Organization Details LastModified Time Mother Diabetes mellitus [email or web address] Not available 2015 15:13:04 Mother Hypertensive disorder [email or web address] Not available 2015 15:13:04 Mother Malignant neoplasm of breast [email or web address] Not available 2015 15:13:04 Mother Malignant neoplasm of ovary [email or web address] Not available 02/25/2022 13:00:00 Father Primary malignant neoplasm of urinary bladder [email or web address] Not available 08/11 13:14:04 Father Coronary arterioscler osis [email or web address] Not available 08/11 13:14:04 Medical History Condition Response Depression Y Headaches/Migraines Y Anxiety Disorder Y High Cholesterol Y Hospitalizations Y Skin Problems Y Mental Illness Y Eczema Y Hypertension Y Chicken Pox Y Gynecological History Statement/Question Response Date of Last Colonoscopy 07/06/2014 Most Recent Bone Density 03/18/2018 Menses Monthly N Date of Last Pap Smear 03/03/2016 Most Recent Mammogram 10/28/2023 Obstetrics History GPAL:G 0 P 0 0 0 0 Immunizations Vaccine Type Date Status Note Provider Nam e and Address Organization Details Recorded Time Influenza, high-dose, trivalent, PF 5 completed CHAD Yeung MA [facility] 09/26/2025 12:51:05 Influenza, split virus, trivalent, PF 5 completed Not Available [facility] 12/22/2023 00:41:16 Influenza, split virus, trivalent, PF 6 completed Not Available [facility] 12/22/2023 00:41:16 zoster live 7 completed Not Available [facility] 12/22/2023 00:41:16 Tdap 8 completed Not Available [facility] 12/22/2023 00:41:16 Influenza, split virus, quadrivalent, PF 0 completed Not Available [facility] 12/22/2023 00:41:16 pneumococcal polysaccharide PPV23 0 completed Not Available [facility] 12/22/2023 00:41:16 COVID-19, mRNA, LNP-S, PF, 30 mcg/0.3 mL dose 1 completed Not Available [facility] 12/22/2023 00:41:16 COVID-19, mRNA, LNP-S, PF, 30 mcg/0.3 mL dose 1 completed Not Available [facility] 12/22/2023 00:41:16 Pneumococcal conjugate PCV 13 1 completed Not Available [facility] 12/22/2023 00:41:16 Influenza, adjuvanted, quadrivalent, PF 1 completed Not Available [facility] 12/22/2023 00:41:16 Influenza, split virus, trivalent, preservative 2 completed Not Available [facility] 12/22/2023 00:41:16 COVID-19, mRNA, LNP-S, PF, 30 mcg/0.3 mL dose 1 completed Not Available [facility] 12/22/2023 00:41:16 COVID-19, mRNA, LNP-S, bivalent, PF, 30 mcg/0.3 mL dose 2 completed Not Available [facility] 12/22/2023 00:41:16 zoster recombinant 3 completed Not Available [facility] 12/22/2023 00:41:16 zoster recombinant 3 completed CHAD Yeung, [facility] 07/05/2024 13:01:27 Influenza, adjuvanted, quadrivalent, PF 3 completed CHAD Yeung, [facility] 07/05/2024 13:01:27 RSV, recombinant, protein subunit RSVpreF, adjuvant reconstituted, 0.5 mL, PF 3 completed CHAD Yeung, [facility] 07/05/2024 13:01:27 COVID-19, mRNA, LNP-S, PF, andrea-sucrose, 30 mcg/0.3 mL 3 completed CHAD Yeung, [facility] 07/05/2024 13:01:27 Tdap 3 completed CHAD Yeung, [facility] 07/05/2024 13:01:27 Influenza, adjuvanted, trivalent, PF 4 completed Not Available [facility] 09/26/2025 11:10:51 COVID-19, mRNA, LNP-S, PF, andrea-sucrose, 30 mcg/0.3 mL 4 completed Not Available [facility] 09/26/2025 11:10:51 Influenza, split virus, quadrivalent, PF 7 completed Not Available [facility] 12/17/2019 02:22:11 Influenza, split virus, trivalent, PF 4 completed Not Available [facility] 12/17/2019 02:21:56 Pneumococcal conjugate PCV 13 8 completed Not Available [facility] 12/17/2019 02:21:38 Influenza, high-dose, trivalent, PF 8 completed Not Available [facility] 12/17/2019 02:22:14 pneumococcal polysaccharide PPV23 9 completed Not Available [facility] 12/17/2019 02:21:30 Influenza, high-dose, trivalent, PF 9 completed Not Available [facility] 12/17/2019 02:22:09 Influenza, high-dose, quadrivalent, PF 2 completed Abdoulaye Wolfe MA [facility] 08/11/2022 13:47:28 Influenza, split virus, trivalent, preservative 7 completed Not Available [facility] 12/22/2023 00:41:16 Influenza, split virus, trivalent, preservative 8 completed Not Available [facility] 12/22/2023 00:41:16 Influenza, split virus, trivalent, preservative 2 completed Not Available [facility] 12/22/2023 00:41:16 Tdap 4 completed Not Available [facility] 12/22/2023 00:41:16 Past Encounters Encounter ID Performer Location Encounter Start Date Encounter Closed Date Diagnosis/Indication Diagnosis SNOMED-CT Code Diagnosis ICD10 Code Diagnosis IMO Codes Diagnosis Note [id number] [facility] [address] [facility],[address] [place] [address] 01/28/2006 00:00:00 [id number] [facility] [facility] [address] [facility],[address] [place] [address] 01/28/2006 00:00:00 [id number] [facility] [facility] [address] [facility],[address] [place] [address] 01/28/2006 00:00:00 [id number] [facility] [facility] [address] [facility],[address] [place] [address] 02/12/2006 00:00:00 [id number] [facility] er[facility] [address] [facility],[address] [place] [address] 02/12/2006 00:00:00 [id number] [facility] [facility] [address] [facility],[address] [place] [address] 02/12/2006 00:00:00 [id number] [facility] [facility] [address] [facility],[address] [place] [address] 02/12/2006 00:00:[address] [id number] [address] [address] [place] [address] 05/18/2006 00:00:00 [id number] [facility] [address] [place] [address] 05/18/2006 00:00:00 [id number] [facility] [facility] [address] [place] [address] 05/18/2006 00:00:00 [id number] [facility] [address] [place] [address] 05/18/2006 00:00:00 [id number] [facility]ce [address] [facility] [address] [place] [address] 08/20/2006 00:00:00 [id number] [facility] [facility] [address] [facility],[address] [place] [address] 08/20/2006 00:00:00 [id number] [facility] [facility] [address] [facility],[address] [place] [address] 03/12/2007 00:00:00 [id number] [facility] [facility] [address] [facility],[address] [place] [address] 06/14/2007 00:00:00 [id number] [facility] erce [address] [facility],[address] [place] [address] 06/14/2007 00:00:00 [id number] [facility] [facility]ce [address] [facility] [address] [place] [address] 06/14/2007 00:00:00 [id number] [facility] erce [address] [facility],[address] [place] [address] 09/29/2007 00:00:00 [id number] [facility] er[facility] [address] [facility],[address] [place] [address] 11/10/2007 00:00:00 [id number] [facility] [facility] [address] [facility],[address] [place] [address] 02/04/2008 00:00:00 [id number] [facility] erce [address] [place] [address] 02/04/2008 00:00:00 [id number] [facility] [address] [place] [address] 02/04/2008 00:00:00 [id number] auto[facility] erce [address] [place] [address] 02/04/2008 00:00:00 [id number] auto[facility] erce [address] [place] [address] 05/09/2008 00:00:00 [id number] auto[facility] erce [address] [place] [address] 05/09/2008 00:00:00 [id number] auto[facility] erce [address] [facility] [address] [place] [address] 05/09/2008 00:00:00 [id number] auto[facility]Comm erce [address] [facility],[address] [place] [address] 05/09/2008 00:00:00 [id number] auto[facility] erce [address] [facility] [address] [place] [address] 08/11/2008 00:00:00 [id number] auto[facility]Comm erce [address] [facility],[address] [place] [address] 08/11/2008 00:00:00 [id number] auto[facility] erce [address] [place] [address] 11/14/2008 00:00:00 [id number] auto[facility]Comm erce [address] [facility] [address] [place] [address] 02/19/2009 00:00:00 [id number] auto[facility] erce [address] [facility] [address] [place] [address] 02/19/2009 00:00:00 [id number] auto[facility] erce [address] [place] [address] 02/19/2009 00:00:00 [id number] auto[facility]Comm erce [address] [place] [address] 04/02/2009 00:00:00 [id number] auto[facility] erce [address] [place] [address] 04/02/2009 00:00:00 [id number] auto[facility]Comm erce [address] [place] [address] 04/02/2009 00:00:00 [id number] auto[facility]Comm erce [address] [facility] [address] [place] [address] 04/02/2009 00:00:00 [id number] autoEComm erce [address] [facility],[address] [place] [address] 07/02/2009 00:00:00 [id number] autoEComm erce [address] [facility],[address] [place] [address] 07/02/2009 00:00:00 [id number] auto[facility]Comm erce [address] [facility],[address] [place] [address] 10/04/2009 00:00:00 [id number] autoEComm erce [address] [facility],[address] [place] [address] 10/04/2009 00:00:00 [id number] autoEComm erce [address] [facility],[address] [place] [address] 01/07/2010 00:00:00 [id number] autoEComm erce [address] [facility],[address] [place] [address] 01/07/2010 00:00:00 [id number] autoEComm erce [address] [facility],[address] [place] [address] 03/18/2010 00:00:00 [id number] auto[facility]Comm erce [address] [facility],[address] [place] [address] 03/18/2010 00:00:00 [id number] [facility] erce [address] [place] [address] 04/16/2010 00:00:00 [id number] auto[facility]Comm erce [address] [place] [address] 05/17/2010 00:00:00 [id number] auto[facility] erce [address] [place] [address] 05/17/2010 00:00:00 [id number] auto[facility] erce [address] [place] [address] 07/19/2010 00:00:00 [id number] auto[facility] erce [address] [place] [address] 07/19/2010 00:00:00 [id number] auto[facility]Comm erce [address] [facility] [address] [place] [address] 10/25/2010 00:00:00 [id number] auto[facility]Comm erce [address] [facility] [address] [place] [address] 01/24/2011 00:00:00 [id number] auto[facility]Comm erce [address] [facility] [address] [place] [address] 01/24/2011 00:00:00 [id number] auto[facility]Comm erce [address] [facility] [address] [place] [address] 01/24/2011 00:00:00 [id number] auto[facility] erce [address] [place] [address] 04/25/2011 00:00:00 [id number] auto[facility]Comm erce [address] [place] [address] 07/25/2011 00:00:00 [id number] auto[facility]Comm erce [address] [facility] [address] [place] [address] 07/25/2011 00:00:00 [id number] [facility] erce [address] [place] [address] 07/25/2011 00:00:00 [id number] auto[facility]Comm erce [address] [place] [address] 07/25/2011 00:00:00 [id number] auto[facility]Comm erce [address] [place] [address] 10/27/2011 00:00:00 [id number] auto[facility] erce [address] [place] [address] 10/27/2011 00:00:00 [id number] auto[facility]Comm erce [address] [facility] [address] [place] [address] 10/27/2011 00:00:00 [id number] auto[facility]Comm erce [address] [facility],[address] [place] [address] 01/26/2012 00:00:00 [id number] autoEComm erce [address] [facility],[address] [place] [address] 04/29/2012 00:00:00 [id number] autoEComm erce [address] [facility],[address] [place] [address] 07/22/2012 00:00:00 [id number] autoEComm erce [address] [facility],[address] [place] [address] 07/22/2012 00:00:00 [id number] autoEComm erce [address] [facility],[address] [place] [address] 07/22/2012 00:00:00 [id number] autoEComm erce [address] [facility],[address] [place] [address] 11/19/2012 00:00:00 [id number] autoEComm erce [address] [facility],[address] [place] [address] 05/25/2013 00:00:00 [id number] autoEComm erce [address] [facility],[address] [place] [address] 05/25/2013 00:00:00 [id number] auto[facility]Comm erce [address] [place] [address] 08/26/2013 00:00:00 [id number] auto[facility]Comm erce [address] [place] [address] 08/26/2013 00:00:00 [id number] auto[facility]Comm erce [address] [place] [address] 08/26/2013 00:00:00 [id number] auto[facility]Comm erce [address] [place] [address] 11/22/2013 00:00:00 [id number] auto[facility]Comm erce [address] [place] [address] 01/09/2014 00:00:00 [id number] autoEComm erce [address] [place] [address] 01/09/2014 00:00:00 [id number] auto[facility]Comm erce [address] [place] [address] 01/09/2014 00:00:00 [id number] autoEComm erce [address] [place] [address] 01/09/2014 00:00:00 [id number] auto[facility]Comm erce [address] [place] [address] 02/15/2014 00:00:00 [id number] autoEComm erce [address] [place] [address] 02/15/2014 00:00:00 [id number] autoEComm erce [address] [place] [address] 04/03/2014 00:00:00 [id number] autoEComm erce [address] [place] [address] 04/03/2014 00:00:00 [id number] autoEComm erce [address] [place], [place] [address] 05/24/2014 00:00:00 [id number] autoEComm erce [address] [facility],[address] [place], [place] [address] 05/24/2014 00:00:00 [id number] autoEComm erce [address] [facility],[address] [place], [place] [address] 05/24/2014 00:00:00 [id number] autoEComm erce [address] [facility],[address] [place], [place] [address] 05/24/2014 00:00:00 [id number] Dillon Sanders MD Main Office [address] [address] [place] [address] 08/24/2014 10:56:10 08/24/2014 12:05:27 Needs influenza immunization [id number] Chronic pain syndrome 586002455 Essential hypertension [id number] Dillon Sanders MD Main Office [address] [address] [place] [address] 11/09/2014 10:42:09 11/09/2014 11:32:10 Essential hypertension 99808172 Chronic pain syndrome 589521718 Mild persi stent asthma 312233302 Psoriasis 4489297 Hyperlipidemia 39935973 [id number] Dillon Sanders MD Main Office [address] [address] [place] [address] 02/06/2015 10:35:22 02/06/2015 12:15:34 Chronic pain syndrome 574445323 Essential hypertension 10009611 Complex re gional pain syndrome, type I 333778057 Mild persi stent asthma 289624620 Psoriasis 9801497 Tobacco de pendence syndrome 71515560 [id number] Dillon Sanders MD Main Office [address] [address] [place] [address] 05/24/2015 13:29:25 05/24/2015 14:25:02 Chronic pain syndrome 895613153 Essential hypertension 58898483 Peripheral vascular disease 663064584 Complex re gional pain syndrome, type I 785748561 Tobacco de pendence syndrome 22447282 [id number] Dillon Sanders MD Main Office [address] [address] [place] [address] 08/23/2015 10:23:14 08/23/2015 11:41:31 Chronic pain syndrome 234186905 Essential hypertension 07956525 Hyperlipidemia 77500284 Tobacco de pendence syndrome [id number] Dillon Sanders MD Main Office [address] [address] [place] [address] 12/24/2015 14:12:50 12/24/2015 15:46:11 Adult health examination 256644282 Z00.00 Deep venou s thrombosis of lower extremity 885002834 I82.509 Peripheral vascular disease 204490722 I73.9 Essential hypertension 41549826 I10 Chronic pain syndrome 37 5713950 G89.4 Psoriasis 1430396 L40.9 Screening for malignant neoplasm of breast 014266060 Z12.39 Screening for malignant neoplasm of cervix 595225763 Z12.4 Tobacco de pendence syndrome 84686183 F17.290 Inflammati on of sacroiliac joint 88264904 M46.1 [id number] Dillon Sanders MD Main Office [address] [address] [place] [address] 03/21/2016 09:37:12 03/21/2016 10:36:15 Chronic pain syndrome 868768709 G89.4 [id number] Dillon Sanders MD Main Office [address] [address] [place] [address] 04/01/2016 13:15:39 04/01/2016 14:10:01 Postural dizziness 506725232 R42 [id number] Dillon Sanders MD Main Office [address] [address] [place] [address] 06/19/2016 10:25:51 06/19/2016 11:38:52 Chronic pain syndrome 725057704 G89.4 Blood in urine 70409105 R31.9 Candidiasis of vagina 72 479862 B37.3 [id number] Dillon Sanders MD Main Office [address] [address] [place] [address] 09/12/2016 10:51:54 09/12/2016 12:04:49 Chronic pain syndrome 253724575 G89.4 Essential hypertension 71426651 I10 Hyperlipidemia 78030886 E78.5 Fatigue 93780228 R53.83 Major depr ession single episode, in partial remission 99128825 F32.4 [id number] Dillon Sanders MD Main Office [address] [address] [place] [address] 12/30/2016 09:31:27 12/30/2016 11:48:13 Chronic pain syndrome 157492695 G89.4 Tachycardia 0303748 R00. 0 Tobacco de pendence syndrome 45785332 F17.290 Essential hypertension 66542513 I10 [id number] Dillon Sanders MD Main Office [address] [address] [place] [address] 12/31/2016 14:07:41 01/13/2017 15:06:29 [id number] Rito Ji PA-C Main Office [address] [address] [place] [address] 01/15/2017 10:15:40 01/15/2017 11:22:13 Supraventricular tachycardia 1758125 I47.1 seen in ER for SVT, currently in NSR - will get card eval 25 minute office visit with greater than 50% of the visit face-to-fa ce with the patient and/or family providing counseling and/or coordinati on of care. Peripheral arterial occlusive disease 134517356 I73.9 cont to f/u c vasc surgery Essential hypertension 29702459 I10 stable, cont meds as dir Hyperlipidemia 49633335 E78.5 cont meds as dir [id number] Dillon Sanders MD Main Office [address] [address] [place] [address] 02/27/2017 10:04:15 02/27/2017 11:49:47 Adult health examination 661202987 Z00.00 Complex re gional pain syndrome, type I 842965144 M89.061 Chronic pain syndrome 37 6336303 G89.4 Essential hypertension 62535202 I10 Hyperlipidemia 44906255 E78.5 Obstructiv e sleep apnea syndrome 22516909 G47.33 Supraventr icular tachycardia 4665971 I47.1 Tobacco de pendence syndrome 78855374 F17.290 Fatigue 91213870 R53.83 [id number] Dillon Sanders MD Main Office [address] [address] [place] [address] 04/23/2017 10:04:57 04/23/2017 10:20:41 [id number] Dillon Sanders MD Main Office [address] [address] [place] [address] 06/01/2017 09:49:31 06/01/2017 11:19:07 Essential hypertension 06830677 I10 Chronic pain syndrome 37 2559573 G89.4 Varicella vaccination 68 152556 Z23 Chalazion of upper eyelid 380739602 H00.11 [id number] Dillon Sanders MD Main Office [address] [address] [place] [address] 08/28/2017 13:42:10 08/28/2017 14:56:57 Essential hypertension 75085951 I10 Chronic pain syndrome 37 7570662 G89.4 Needs infl uenza immunization 196882481 Z23 [id number] Dillon Sanders MD Main Office [address] [address] [place] [address] 11/17/2017 10:56:14 11/17/2017 12:10:46 Chronic pain syndrome 413068032 G89.4 Screening for malignant neoplasm of breast 955381543 Z12.39 Menopause present 217223 006 Z78.0 Intrinsic asthma 8856183 08 J45.909 Acute exac erbation of chronic bronchitis 476525031 J44.1 [id number] Dillon Sanders MD Main Office [address] [address] [place] [address] 02/19/2018 13:54:52 02/19/2018 15:54:56 Chronic pain syndrome 753849527 G89.4 Screening for malignant neoplasm of breast 196735196 Z12.39 Major depr ession single episode, in partial remission 41779155 F32.4 Tobacco de pendence syndrome 45412528 F17.290 Supraventr icular tachycardia 3676042 I47.1 followed by cardiology Peripheral arterial occlusive disease 060424085 I73.9 non-operab le disease. followed by vascular Chronic ob structive pulmonary disease 22082697 J44.9 Hyperlipidemia 66718834 E78.5 Fatigue 95041566 R53.83 Essential hypertension 91216200 I10 Varicella vaccination 68 461273 Z23 [id number] Dillon Sanders MD Main Office [address] [address] [place] [address] 05/07/2018 10:39:05 05/07/2018 11:52:41 Screening for malignant neoplasm of breast 532445795 Z12.31 Adult heal th examination 621048085 Z00.00 Essential hypertension 84795064 I10 Hyperlipidemia 23022278 E78.5 Tobacco de pendence syndrome 49303926 F17.290 Chronic pain syndrome 37 2513816 G89.4 Obstructiv e sleep apnea syndrome 69693569 G47.33 Complex re gional pain syndrome, type I 768132015 M89.061 Irritable bowel syndrome 96354097 K58.9 [id number] Dillon Sanders MD Main Office [address] [place] [address] 08/23/2018 14:09:28 08/23/2018 15:14:46 Screening for malignant neoplasm of breast 241512075 Z12.31 Administra tion of pneumococcal vaccine 36303351 Z23 Chronic pain syndrome 37 2999852 G89.4 Influenza vaccine needed 0358955163 106 Z23 Hyperlipidemia 75259552 E78.5 Fatigue 20659319 R53.83 Essential hypertension 31433227 I10 [id number] Rito Ji PA-C Main Office [address] [address] 11/17/2018 13:28:28 11/17/2018 14:17:51 Chronic pain syndrome 499830432 G89.4 [id number] Dillon Sanders MD Main Office [address] [address] 12/13/2018 13:59:49 12/13/2018 15:10:41 Screening for malignant neoplasm of breast 237447296 Z12.31 Chronic pain syndrome 37 1148605 G89.4 Major depr ession single episode, in partial remission 27222100 F32.4 Supraventr icular tachycardia 5392335 I47.1 followed by cardiology Peripheral arterial occlusive disease 742539208 I73.9 non-operab le disease. followed by vascular Chronic ob structive pulmonary disease 17575316 J44.9 Stable on present medication s. Hyperlipidemia 83568372 E78.5 Essential hypertension 17798513 I10 Fatigue 71314231 R53.83 Complex re gional pain syndrome, type II, lower limb 461908508 G57.71 [id number] Dillon Sanders MD Main Office [address] [address] [place] [address] 03/11/2019 10:02:54 03/11/2019 11:03:38 Chronic pain syndrome 425987090 G89.4 Essential hypertension 95837242 I10 [id number] Dillon Sanders MD Main Office [address] [address] [place] [address] 06/06/2019 13:41:03 06/06/2019 14:43:30 Essential hypertension 90121245 I10 Screening for malignant neoplasm of breast 256971435 Z12.31 Adult heal th examination 610869343 Z00.00 Chronic pain syndrome 37 4787185 G89.4 Hyperlipidemia 15935658 E78.5 Tobacco de pendence syndrome 34518815 F17.290 Obstructiv e sleep apnea syndrome 95337100 G47.33 Has not been on CPAP. STates that she did not tolerate device Complex re gional pain syndrome, type I 542846544 M89.061 Irritable bowel syndrome 97954267 K58.9 Major depr ession single episode, in partial remission 87260425 F33.1 [id number] Dillon Sanders MD Main Office [address] [address] [place] [address] 09/26/2019 10:34:39 09/26/2019 11:45:54 Administration of pneumococcal vaccine 26139158 Z23 Chronic pain syndrome 37 7861870 G89.4 Influenza vaccine needed 5770184212 106 Z23 Essential hypertension 06909810 I10 Hyperlipidemia 32100928 E78.5 Fatigue 44006655 R53.83 Osteopenia 028002132 M85 .80 [id number] Dillon Sanders MD Main Office [address] [address] [place] [address] 12/09/2019 10:15:02 12/09/2019 11:57:39 Chronic pain syndrome 881477196 G89.4 Major depr ession single episode, in partial remission 21052160 F33.1 Supraventr icular tachycardia 7453038 I47.1 followed by cardiology Peripheral arterial occlusive disease 096753089 I73.9 non-operab le disease. followed by vascular Chronic ob structive pulmonary disease 12367723 J44.9 Stable on present medication s. [id number] Dillon Sanders MD Main Office [address] [place] [address] 03/09/2020 09:02:46 03/09/2020 10:47:48 Screening for malignant neoplasm of breast 252762833 Z12.39 Chronic pain syndrome 37 9416378 G89.4 Eczema 09939741 L30.9 Chronic ob structive pulmonary disease 63617952 J44.9 Stable on present medication s. [id number] Dillon Sanders MD [facility] [address] [place] [address] 06/08/2020 13:09:55 06/08/2020 16:24:32 Chronic pain syndrome 762859790 G89.4 Chronic ob structive pulmonary disease 12658373 J44.9 Stable on present medication s. Essential hypertension 97461307 I10 Hyperlipidemia 08130307 E78.5 [id number] [facility] [address] [place] [address] 09/21/2020 07:38:32 09/21/2020 12:18:37 Adult health examination 037058680 Z00.00 Varicella vaccination 68 693524 Z23 Tobacco de pendence syndrome 94639568 F17.290 Screening for malignant neoplasm of lung 012788832 Z87.891 Eligible patients must have >=30 pack years Screening for malignant neoplasm of breast 664573435 Z12.39 Chronic pain syndrome 37 4496187 G89.4 Obstructiv e sleep apnea syndrome 44778562 G47.33 Has not been on CPAP. STates that she did not tolerate device Chronic ob structive pulmonary disease 59668034 J44.9 Stable on present medication s. Essential hypertension 15435218 I10 Hyperlipidemia 03071886 E78.5 Osteopenia 410841702 M85 .80 Supraventr icular tachycardia 8179571 I47.1 followed by cardiology [id number] Dillon Sanders MD [facility] [address] [place] [address] 12/21/2020 08:27:07 12/24/2020 13:42:02 Chronic pain syndrome 057908542 G89.4 Chronic ob structive pulmonary disease 33941760 J44.9 Stable on present medication s. Essential hypertension 20012393 I10 Hyperlipidemia 11306429 E78.5 Tobacco de pendence syndrome 29943486 F17.290 Tomography - chest abnormal 097393293 R93.89 Screening for lung cancer with LDCT chest was abnormal 09/2020. Repeat at [facility] scheduled. [id number] Dillon Sanders MD [facility] [address] [place] [address] 03/15/2021 11:51:05 03/19/2021 11:04:00 Chronic pain syndrome 098807293 G89.4 Chronic ob structive pulmonary disease 51285220 J44.9 Stable on present medication s. Essential hypertension 78160496 I10 Hyperlipidemia 11431031 E78.5 Tobacco de pendence syndrome 38854163 F17.290 Complex re gional pain syndrome 212340915 G90.521 Discussed options for decreasing opioids if she chooses. [id number] Dillon Sanders MD [facility] [address] [place] [address] 04/12/2021 10:48:32 04/18/2021 12:56:25 Chronic pain syndrome 147105115 G89.4 Chronic ob structive pulmonary disease 05520258 J44.9 Stable on present medication s. Complex re gional pain syndrome 775345853 G90.521 Discussed options for decreasing opioids if she chooses. Major depr ession single episode, in partial remission 83446420 F33.1 Supraventr icular tachycardia 0053333 I47.1 followed by cardiology Peripheral arterial occlusive disease 391051899 I73.9 non-operab le disease. followed by vascular [id number] Dillon Sanders MD [facility] [address] [place] [address] 05/24/2021 08:21:04 05/28/2021 08:53:36 Chronic pain syndrome 375784329 G89.4 Chronic ob structive pulmonary disease 16956001 J44.9 Stable on present medication s. [id number] Shereen Massey MD Main Office [address] [place] [address] 09/23/2021 13:49:36 09/23/2021 14:42:21 Chronic pain syndrome 951338907 G89.4 I had a long discussion with Felisa regarding opioid prescripti ons. I advised her that it is out of the scope of my practice to manage chronic pain and that it would be in her best interest to consider looking for other providers who would continue her pain management as she would like to continue to use opioids. Felisa tells me she declined opioids prescribed by her vascular surgeon team as she felt like the quantity was insufficie nt. I reiterated the same options that were discussed to her previous provider. I will go ahead and prescribe Felisa 30-day supply of her last tapering opioid dose so that she can find a new provider in the interim. TECHNICAL PROGRAM MANAGER was checked if she had filled any opioids from her vascular providers and this was not noted. Has followed pain managment on past whom will not continue care. Chronic ob structive pulmonary disease 52063719 J44.9 Stable on present medication s. Complex re gional pain syndrome 075054814 G90.50 Peripheral vascular disease 931138977 I73.9 Still smoking. Notes no changes. Not motivated presently for attempts at smoking cessation. We will place medical records request to receive most recent vascular note. [id number] Shereen Massey MD Main Office [address] [facility] [address] [place] [address] 02/25/2022 12:54:51 02/25/2022 14:02:36 Major depression single episode, in partial remission 37795566 F33.1 stable. Supraventr icular tachycardia 7051251 I47.1 stable follows cardiology . Peripheral vascular disease 814197935 I73.9 Still smoking, follows vascular. Chronic ob structive pulmonary disease 71404849 J44.9 Stable on present medication s. Adult heal th examination 614368377 Z00.00 Patient was counseled on healthy diet, exercise and nutrition due to Body mass index is 25.1 kg/m . Last Colonoscop y:Date: 07/06/14Resu lt: no polypsPlan : repeat in 2023 Last Mammogram: Date:Resul t:Plan: due, referral placed. Last Pap smearDate: 03/03/16Resu lt: neg for TREVOR, TZ absent, HPV negPlan: has fhx of ovarian and breast cancer will refer to railroad commissioner to consider final pap. Bone density scanDate: 03/18/18Res ult: Osteopenia of hipPlan: discussed weight bearing exercise, and foods rich of ca2+ vit D. Vaccines:T dAP: 05/23/18Zos ter: script providedPC V13: 09/12/21PP SV23: 08/17/2020I nfluenza:1 Cov id: 03/20/21, 04/10/21, 10/10/21 Routine labs today Immunizati on status reviewed. Will screen based on risk factors. Regular dental and ophtho care advised as well as seat belt and sunscreen use. Distracted driving discussed. Medication reconciled . Advance directives discussed. Advance di rective discussed with patient 336170166 Z71.89 Screening for malignant neoplasm of breast 541164196 Z12.39 Screening for malignant neoplasm of cervix 498787488 Z12.4 Varicella vaccination 68 838392 Z23 Nodule of lung 983835132 R91.1 Following at [facility] CT surgery.Ne xt apt for scan 02/28 Tobacco de pendence syndrome 08353572 F17.290 discussed cessation options of patches, is carissa g. Essential hypertension 35255400 I10 Fatigue 72419239 R53.83 Hyperlipidemia 71551460 E78.5 Complex re gional pain syndrome 521730324 G90.50 Eczema 96225307 L30.9 [id number] Shereen Massey MD Main Office [address] [place] [address] 08/11/2022 13:13:42 08/11/2022 14:11:03 Chronic obstructive pulmonary disease 64891780 J44.9 Stable on present medication s. Chronic pain syndrome 37 8987363 G89.4 I had a long discussion with Felisa regarding opioid prescripti ons. I advised her that it is out of the scope of my practice to manage chronic pain and that it would be in her best interest to consider looking for other providers who would continue her pain management as she would like to continue to use opioids. Has followed pain management on past whom will not continue care. Complex re gional pain syndrome 934153662 G90.50 Deep venou s thrombosis of lower extremity 314680015 I82.409 Essential hypertension 73855697 I10 Low sodium diet discussedC ounseled on medication adherence - bp soft will decrease meds.Couns eled on diet/exerc iseAdvised to keep BP daily BP log and technique counseled. Red flags of HTN emergency discussed and when to go to ED. Supraventr icular tachycardia 0486694 I47.1 stable follows cardiology . Influenza vaccine needed 8149432708 106 Z23 Peripheral vascular disease 026232284 I73.9 Still smoking, follows vascular. [id number] Shereen Massey MD Main Office [address] [place] [address] 07/03/2023 12:54:14 07/03/2023 14:02:54 Adult health examination 777462148 Z00.00 Patient was counseled on healthy diet, exercise and nutrition due to Body mass index is 24.1 kg/m . Last Colonoscop y:Date: 07/06/14Resu lt: no polypsPlan : repeat in 2023 Last Mammogram: Date:Resul t:Plan: due, referral placed. Last Pap smearDate: 03/03/16Resu lt: neg for TREVOR, TZ absent, HPV neg Bone density scanDate: 03/18/18Res ult: Osteopenia of hipPlan: discussed weight bearing exercise, and foods rich of ca2+ vit D. Vaccines:T dAP: 05/23/18Zos ter rec: script providedPC V13: 09/12/21PP SV23: 08/17/2020I nfluenza: 08/11/22Cov id: 03/20/21, 04/10/21, 10/10/21, bivalent encouraged Routine labs today Immunizati on status reviewed. Will screen based on risk factors. Regular dental and ophtho care advised as well as seat belt and sunscreen use. Distracted driving discussed. Medication reconciled . Advance directives discussed. Major depr ession single episode, in partial remission 43640188 F33.1 No thought of self harm or harming other.Open to seeing therapist, and hold adjusting meds for now. Supraventr icular tachycardia 4513517 I47.1 stable follows cardiology . Peripheral vascular disease 145585084 I73.9 Still smoking, follows vascular. Chronic ob structive pulmonary disease 87236406 J44.9 Stable on present medication s. Advance di rective discussed with patient 890916941 Z71.89 Screening for malignant neoplasm of breast 404852115 Z12.39 Varicella vaccination 68 526677 Z23 Nodule of lung 904856802 R91.1 Following at [facility] CT surgery. Tobacco de pendence syndrome 39108991 F17.290 discussed cessation options of patches, is carissa g. Essential hypertension 97757011 I10 bp soft amlodipine stopped will monitor bp 1 mo. Fatigue 30803201 R53.83 Hyperlipidemia 26184466 E78.5 Bone density finding 385 579533 M85.89 [id number] Kulwinder Miller MD [facility] [address] [facility] [address] [place] [address] 05/26/2023 09:34:46 05/26/2023 11:33:51 Cough 23442337 R05.9 ? d/t SE of valsartan (is #6 on SE profile in epocrates) vs worsening of her copd vs pna ---- see below - check cxr, and give prn tessalon Chronic ob structive pulmonary disease 33960323 J44.9 see above - check cxr - last LDCT 4.23 was stable, cont inhalers as dir Essential hypertension 45904143 I10 bp running a little low on RPM monthly ave.? SE of cough of valsartan - stop valsartan, cont metoprolol as dir in am, but begin amlodipine low dose 2.5mg hscont RPM Supraventr icular tachycardia 4265701 I47.1 seen in ER for SVT, currently in NSR - will get card eval 6.23 - cont BB as dir, cont f/u c card q yr - next 09.10.23 [id number] Shereen Massey MD Main Office [address] [facility] [address] [place] [address] 09/04/2023 15:41:35 09/05/2023 09:16:18 Major depression single episode, in partial remission 94990052 F33.1 No thought of self harm or harming other.Enco urage to look for therapist. Encouraged to look for financial planer. [id number] Shereen Massey MD Main Office [address] [place] [address] 07/05/2024 12:57:42 07/05/2024 13:52:00 Adult health examination 602202369 Z00.00 Patient was counseled on healthy diet, exercise and nutrition due to Body mass index is 23.6 kg/m . Last Colonoscop y:Date: 07/06/14Resu lt: no polypsPlan : order referral placed. Last Mammogram: Date: 10/28/23Re sult: Birad-1Pla n: cont. annual screening Last Pap smearDate: 03/03/16Resu lt: neg for TREVOR, TZ absent, HPV negPlan: Past age of screening Bone density scanDate: 10/28/23Re sult: Osteopenia Plan: discussed weight bearing exercise, and foods rich of ca2+ vit D. Vaccines:T dAP: 05/23/18Zos ter rec: 07/09/23, 10/30/23PCV 13: 09/12/21PP SV23: 08/17/2020I nfluenza: yearly flu encouraged Covid: encourage updated vaccineRSV : 10/05/23 Routine labs today Immunizati on status reviewed. Will screen based on risk factors. Regular dental and ophtho care advised as well as seat belt and sunscreen use. Distracted driving discussed. Medication reconciled . Advance directives discussed. Major depr ession single episode, in partial remission 76756227 F33.1 No thought of self harm or harming other. Stable on sertraline . Supraventr icular tachycardia 2417707 I47.10 stable follows cardiology . Peripheral vascular disease 618285358 I73.9 Still smoking, follows vascular. Chronic ob structive pulmonary disease 12538466 J44.9 Stable on present medication s. Advance di rective discussed with patient 407558992 Z71.89 MOLST and HCP discussed. Nodule of lung 155426765 R91.1 Following at [facility] CT surgery. Tobacco de pendence syndrome 35247368 F17.290 discussed cessation options of patches, is considerin g. Fatigue 92096220 R53.83 Hyperlipidemia 67275774 E78.5 Screening for malignant neoplasm of colon 235812493 Z12.11 History of deep vein thrombosis 050584491 Z86.718 Osteopenia 594563880 M85 .80 [id number] Romie Vences MD Main Office [address] [facility] [address] [place] [address] 08/12/2024 13:24:50 08/12/2024 13:55:52 Tachycardia 2262817 R00.0 Supraventr icular tachycardia 6473852 I47.10 hx of SVT, follows cardiology (Dr. Justice)-fol lows with Dr. Justice annually and is scheduled to f/u with him in a few months-has been having elevated readings of HR at home with a stable BP; no associated symptoms-d enies of any red flag or cardiac symptoms-s mokes 1/2 pack a day of cigerettes -adherent to medication regimen-EK G; premature SVT, HR of 58bpm [id number] Shereen Massey MD Main Office [address] [facility] [address] [place] [address] 09/26/2025 11:07:44 09/26/2025 12:29:58 Adult health examination 380204920 Z00.00 Patient was counseled on healthy diet, exercise and nutrition due to Body mass index is 23.6 kg/m . Last Colonoscop y:Date: 07/06/14Resu lt: no polypsPlan : referral placed again, reviewed importance of following up and risk of not doing so. Last Mammogram: Date: 10/28/23Re sult: Birad-1Pla n: referral placed again, reviewed importance of following up and risk of not doing so. Last Pap smearDate: 03/03/16Resu lt: neg for TREVOR, TZ absent, HPV negPlan: Past age of screening Bone density scanDate: 10/28/23Re sult: Osteopenia Plan: discussed weight bearing exercise, and foods rich of ca2+ vit D. Repeat ordered. LDCT:Date: 05/05/25Resu lt: Lung RADS 4BPlan: s/p bronch followed by CT surgery and pulm Vaccines:T dAP: 05/23/18Zos ter rec: 07/09/23, 10/30/23PCV 13: 09/12/21PP SV23: 08/17/2020I nfluenza: 09/26/25Co vid: encourage updated vaccineRSV : 10/05/23 Routine labs today Immunizati on status reviewed. Will screen based on risk factors. Regular dental and ophtho care advised as well as seat belt and sunscreen use. Distracted driving discussed. Medication reconciled . Advance directives discussed. Major depr ession single episode, in partial remission 83781873 F33.1 No thought of self harm or harming other. Stable on sertraline . Supraventr icular tachycardia 5324187 I47.10 stable follows cardiology . Peripheral vascular disease 264298706 I73.9 Still smoking, follows vascular. Chronic ob structive pulmonary disease 76247601 J44.9 Stable on present medication s. Advance di rective discussed with patient 667331529 Z71.89 MOLST and HCP discussed. Nodule of lung 024322571 R91.1 Following at [facility] surgery. Tobacco de pendence syndrome 49470231 F17.290 discussed cessation options 4 min counseled of risk of tabaco use and treatment option. Hyperlipidemia [id number] E78.5 R73.01 Osteopenia [id number] M85 .80 History of deep vein thrombosis [id number] Z86.718 Screening for malignant neoplasm of colon 052568945 Z12.11 Fatigue [id number] R53.83 Screening for malignant neoplasm of breast 941217368 Z12.39 Influenza vaccine needed [id number] 106 Z23 65 YEARS AND OLDER Bone density finding [id number] M85.89 Complex re gional pain syndrome [id number] G90.50 Complex Regional Pain Syndrome: The patient continues to manage symptoms with pain management support and expresses limitation s in physical activity, affecting daily tasks such as climbing stairs and carrying groceries. - Continued management of complex regional pain syndrome with current pain management team.- DME Script for Stair lift placed. Mixed urin brook incontinence [id number] N39.46 [id number] Will start with urine test.Encou raged pelvic floor exercises, symptoms mild and not bothersome per patient. Overall still can control her bladder and bowel function. Health Concerns Section Related Observation LastModified by Organization Detai ls LastModified Time None Recorded Concern Status LastModified by Organization Details LastModified Time None Recorded Advance Directives Directive Y: HCP Payers Insurance Date Sequence Insurance Name Policy Number Policy [place] Covered Member ID [place] Member ID Guarantor Name 08/17/2020 2 [place] [facility] Felisa Short [id number] Felisa Short 08/17/2020 2 [place] Felisa Short [id number] Felisa Short 07/21/2024 1 [facility] (MEDICARE REPLACEMENT/ ADVANTAGE - PPO) [id number] Felisa Short [id number] Felisa Short 09/26/2025 1 [facility] (MEDICARE REPLACEMENT/ ADVANTAGE - PPO) [id number] Felisa Short [id number] Felisa Short 07/21/2024 2 [place] [facility] Felisa Short [id number] Felisa Short 08/17/2020 2 [place] [facility] Felisa Short [id number] Felisa Short 08/17/2020 1 [place] [facility] Felisa Short [id number] Felisa Short 08/17/2020 1 [facility] [id number] Felisa Short [id number] Felisa Short Notes Date Note Type Note Provider Name and Address Organization Details Recorded Time 3 text/html Medicare Annual Wellness VisitReported by PatientSocial/Behavioral HistoryFor physical activity, patient reportsdecreased physical activity. For diet and nutrition, patient reportshealthy diet. For fracture risk, patient reportsno history of fractures.Mental Status:For depression risk, patient reportsno significant changes in weight. For concentration and memory, patient reportsno memory lapses or loss. For speech/motor difficulties, patient reportsno speech difficultiesandno difficulty writing/copying.Function al AbilityFor vision, patient reportsslow partial vision loss(bifocals used). For hearing, patient reportsno loss of hearing. For activities of daily living, patient reportsable to bathe with limited or no assistance,able to dress with limited or no assistance,able to get out of chair or bed with limited or no assistance, andable to toilet with limited or no assistance. For instrumental activities of daily living, patient reportsable to do house work with limited or no assistance,able to manage medications with limited or no assistance,able to manage money with limited or no assistance,able to prepare meals with limited or no assistance, andable to use the phone with limited or no assistance. For falls risk assessment, patient reportsno fall since last visit. For home safety, patient reportsworking smoke/co detectors,use of seatbelts, andno fire arms.ROS as noted in the HPI Here for wellness visit. Reviewed chronic medications and medical problems. Discussed screening guidelines as well as goals for fitness and weight management. Reviewed BP reading, it has been low thus will stop [facility]health. Followed up with pain management for CRPS Increase depression related to being alone, no thoughts of self harm or harming others. No recent COPD exacerbation, rare use of inhalers/ Shereen Massey MD [address] [facility] [address], [place], [address], [facility] 07/03/2023 13:57:53 3 text/html Anxiety/DepressionReport ed by PatientHPIFor context, patient reportsmajor life stressorsandtobacco use. For associated symptoms, patient reportsanxiety,depressio n,loneliness, anddecreased effectiveness/productivi tybut reportsdenies homicidal ideations,no visual/auditory hallucinations,no delusions,no crying spells, andno apathy(more with loneliness, talking with friends, has grand daughter coming over.notes issues more finance related.has not looked into therapist.note excess sleep.). For severity, patient reportsdenies suicidal ideationsanddoes not interfere with activities of daily living. For quality, (sx same.). For duration, (since 1991.).the processing of undergoing surgery was part of her trigger.Being behind on property taxes has made things more stressful for her.ROS as noted in the HPI Shereen Massey MD [address] [facility] [address], [place], [address], [facility] 09/04/2023 16:50:23 4 text/html Medicare Annual Wellness VisitReported by PatientSocial/Behavioral HistoryFor physical activity, patient reportsdecreased physical activity. For diet and nutrition, patient reportshealthy diet. For fracture risk, patient reportsno history of fractures.Mental Status:For depression risk, patient reportsno significant changes in weight. For concentration and memory, patient reportsno memory lapses or loss. For speech/motor difficulties, patient reportsno speech difficulties.Functional AbilityFor vision, patient reportsslow partial vision loss(bifocals used). For instrumental activities of daily living, patient reportsunable to grocery shop without assistancebut reportsable to do house work with limited or no assistance,able to manage medications with limited or no assistance,able to manage money with limited or no assistance,able to prepare meals with limited or no assistance, andable to use the phone with limited or no assistance. For hearing, patient reportsno loss of hearing. For activities of daily living, patient reportsable to bathe with limited or no assistance,able to dress with limited or no assistance,able to get out of chair or bed with limited or no assistance, andable to toilet with limited or no assistance. For falls risk assessment, patient reportsno fall since last visit. For home safety, patient reportsworking smoke/co detectors,use of seatbelts,no fire arms, andreviewed sun protection.ROS as noted in the HPI Here for wellness visit. Reviewed chronic medications and medical problems. Discussed screening guidelines as well as goals for fitness and weight management. Followed up with pain management for CRPS No recent COPD exacerbation, rare use of inhalers. Shereen Massey MD [address] [facility] [address], [place], [address], [facility] [place] 07/05/2024 13:48:39 4 text/html ROS as noted in the HPI Felisa is a 69yr old F who presents for tachycardia at home. Reports of having home readings of elevate HR >150bpm with a stable BP reading. Denies of experiencing any cardiac symptoms, sob, headache, or dizziness. Follows annually with Dr. Justice (cardiology). Currently on metoprolol succinate 25mg, clopidogrel 75mg. Reports she currently smokes cigarettes, about 1/2 pack a day. JUNAID DIGGS [address] [facility] [facility] [address], [place], [address], [facility] 08/14/2024 20:02:33 5 text/html Medicare Annual Wellness VisitReported by PatientSocial/Behavioral HistoryFor physical activity, patient reportsdecreased physical activity. For diet and nutrition, patient reportshealthy diet. For fracture risk, patient reportsno history of fractures.Mental Status:For depression risk, patient reportsno significant changes in weight. For concentration and memory, patient reportsno memory lapses or loss. For speech/motor difficulties, patient reportsno speech difficulties.Functional AbilityFor vision, patient reportsslow partial vision loss(bifocals used). For instrumental activities of daily living, patient reportsunable to do house work without assistanceandunable to grocery shop without assistancebut reportsable to manage medications with limited or no assistance,able to manage money with limited or no assistance,able to prepare meals with limited or no assistance, andable to use the phone with limited or no assistance. For hearing, patient reportsno loss of hearing. For activities of daily living, patient reportsable to bathe with limited or no assistance,able to dress with limited or no assistance,able to feed self with limited or no assistance,able to get out of chair or bed with limited or no assistance,able to groom with limited or no assistance, andable to toilet with limited or no assistance. For falls risk assessment, patient reportsno fall since last visit. For home safety, patient reportsworking smoke/co detectors,use of seatbelts,no fire arms,good lighting in the home, andreviewed sun protection.ROS as noted in the HPI Here for wellness visit. Reviewed chronic medications and medical problems. Discussed screening guidelines as well as goals for fitness and weight management. Followed up with pain management for CRPS No recent COPD exacerbation, rare use of inhalers. Following Pulmonary.The patient stated that the lung nodule detected earlier was mucus, as confirmed by bronchoscopy. They mentioned mild stress incontinence over the last four to five years, primarily when sneezing or laughing, but it does not significantly impact their daily life. The patient receives assistance with some household tasks but manages personal care independently. Seeing Vascular for PVD. Shereen Massey MD [address] [address], [place], [address], [facility] 09/26/2025 12:43:49 OBGyn Episode No OBEpisode recorded.
--- OUTSIDE RECORDS SUMMARY | 2025-11-02 21:23 | XMS_ITS | Continuity of Care Document ---
Author Organization [facility], Main Office Address [address] [place] [address] Care Team Providers Care Nutrition Internship Name Role Phone GARRETT GUTIERREZ Discharging Machine Operator CHAPO CHINO Broach Setter [phone] PRANAV GARRETT Deck Builder [facility] Cloth Beamer OCTAVIA GARZA Vascular Surgeon [phone] TYRELL ONTIVEROS Primary Care Provider S V PAIN MANAGEMENT Pain Management Assessment No assessment recorded. Plan of Treatment Reminders Order Date Submit Date Provider Last Modified By Organization Details Last Modified Time Details Appointments None recor ded. Lab CBC w/ auto diff 2024 025 [email or web address] [facility], [address] , [place], [address], 12:36:56 TSH, ultra -sens itive , serum 2024 025 ckokar [facility], [address], [address], [place], [address], 12:36:56 lipid panel , serum 2024 025 [email or web address] [facility], [address], [place], [address], 13:52:47 CMP, serum or plasm a 2024 [facility], [address] [facility] [facility], [address], [place], [address], 12:36:56 vitam in D, 25-hy droxy , total , serum 2024 [facility], [address], [place], [address], 12:36:56 urina lysis compl ete, refle x cultu re 2024 [facility] (Centralized Electronic Ordering - All Locations), Patient Can Go To The Location Of Their Choice, [address] 12:36:57 Referral physi nino donnellyt refer ral - At risk for falli ng 2024 Not available 14:18:12 gastr louann harrell ist refer ral - Needs colon cance r scree cheko 2024 [email or web address] [facility], [address] [place], [address], 14:19:05 Procedures colon oscop y tien wilcoxg (PROC ) 2024 ATHENAFAX [facility], [address] [place], [address], 14:27:16 Surgeries None recor ded. Imaging bone densi ty 2024 [facility], [address], [address], [place], [address], 12:36:57 MAMMO , scree cheko, bilat eral - Perfo rm Diagn ostic Mammo gram and Breas t Ultra sound if neede d / Perfo rm Ultra sound Guide d Aspir ation and/o r Breas t Biops y if warra nted 2024 025 guzman [facility], [address], [place], [address], 12:36:56 Medication Orders None recor ded. Patient TargetsNo targets recorded. Patient Instructions Encounter Date Encounter Id Patient Instructions Last Modified By Organization Details Last Modified Time 09/26/2025 [id number] advance care planning: care instructions guzman Not available 09/26/2025 12:36:56 complex regional pain syndrome: care instructions guzman Not available 09/26/2025 12:36:57 preventing falls : care instructions guzman Not available 09/26/2025 12:36:56 well visit, over 65: care instructions guzman Not available 09/26/2025 12:36:56 medicare preventive services guide (female 74yrs and under) guzman Not available 09/26/2025 12:36:56 bladder training : care instructions guzman Not available 09/26/2025 12:36:57 kegel exercises: care instructions guzman Not available 09/26/2025 12:36:57 Stress Incontinence: Care Instructions guzman Not available 09/26/2025 12:36:57 Urge Incontinence: Care Instructions guzman Not available 09/26/2025 12:36:57 learning about colon cancer guzman Not available 09/26/2025 12:36:56 Reason for Referral Physical Therapist Referral for Adult health examination At risk for falling Referring Physician: Tyrell Ontiveros [facility], Encounter Date: 09/26/2025 Cloth Beamer Referral for Screening for malignant neoplasm of colon Needs colon cancer screening Referring Physician: Tyrell Ontiveros [facility], Encounter Date: 09/26/2025 Results Created Date Observation Date Name Description Value Unit Range Abnormal Flag Note LastModifiedBy Organization Detail LastModifiedTime 10/17/20 25 ECG 12-le ad No observ ation record ed. guzman [facility] Dept [address], [place], [address], 10/17/2025 14:20:36 Result Notes None recorded. Problems Name Problem SNOMED Code Status Onset Date Resolution Date Notes Provider Name and Address Organization Details Recorded Time Intrinsi c asthma 422864272 Completed 07/03/2023 Tyrell Ontiveros MD [address], [place], [address] , [facility] 3 13:21:57 Bipolar I disorder 990991485 Active Question able dx Diagnosi s in 1993. Had psych admissio n Not Available [facility] 4 00:41:15 Screenin g for malignan t neoplasm of cervix Completed 12/30/2016 Dillon Sanders MD [address] [facility] [address], [place], [address] , [facility] 7 10:25:38 Chronic pain syndrome 851527859 Active Not Available [facility] 4 00:41:15 Diarrhea 19209661 Completed 12/30/2016 CHAD Ramos, [facility] 7 09:38:40 Hyperlip idemia 37007678 Active Not Available [facility] 4 00:41:15 Essentia l hyperten kristen 75943613 Active Not Available [facility] 4 00:41:15 Insomnia 530241774 Completed 07/03/2023 Tyrell Ontiveros MD [address] [facility] [address], [place], [address] , [facility] 3 13:21:52 Laborato ry procedur e performe d 163384085 Completed 12/30/2016 CHAD Ramos, [facility] 7 09:38:19 Major depressi on single episode, in partial remissio n 20119504 Active Not Available [facility] 4 00:41:15 Migraine 97383514 Completed 07/05/2024 Tyrell Ontiveros MD [address] [facility] [address], [place], [address] , [facility] 4 13:19:45 Obesity 830514628 Active Not Available [facility] 4 00:41:15 Obstruct salvatore sleep apnea syndrome 47096093 Active Not Available [facility] 4 00:41:16 Peripher al vascular disease 184492729 Active Not Available [facility] 4 00:41:15 Paronych ia of toe 127693107 Completed 12/30/2016 Dillon Sanders MD [address], [place], [address] , [facility] 7 10:26:03 Psoriasi s 9436737 Active Not Available [facility] 4 00:41:16 Complex regional pain syndrome , type I Completed 03/15/2021 Dillon Sanders MD [address], [place], [address] , [facility] 1 13:28:02 Herpes zoster 9982303 Completed 12/30/2016 Dillon Sanders MD [address], [place], [address] , [facility] 7 10:26:18 Administ ration of diphther ia, pertussi s, and tetanus vaccine Completed 12/30/2016 Yolanda Tatum [place] [facility], [facility] 7 09:38:31 Tobacco dependen ce syndrome 78476721 Active Not Available [facility] 4 00:41:16 Edema 389926277 Completed 07/03/2023 Tyrell Ontiveros MD [address], [place], [address] , [facility] 3 13:21:39 Deep venous thrombos is of lower extremit y 518433798 Completed 07/03/2023 Tyrell Ontiveros MD [address], [place], [address] , [facility] 3 13:21:35 Brachial radiculi tis 99601600 Completed 12/30/2016 Dillon Sanders MD [address] [facility] [address], [place], [address] , [facility] 7 10:25:52 Mild persiste nt asthma 935320828 Completed 07/05/2024 Tyrell Ontiveros MD [address] [facility] [address], [place], [address] , [facility] 4 13:19:48 Inflamma tion of sacroili ac joint 56360159 Active Not Available [facility] 4 00:41:15 Postural dizzines s 615312761 Completed 07/05/2024 Tyrell Ontiveros MD [address] [facility] [address], [place], [address] , [facility] 4 13:19:55 Constipa tion 14360724 Completed 200706/20/2014 RECORDED 08/11/20 08 9:36AM BY BLESSING RICHMOND ON/ADDEN DUM Not Available [facility] 4 14:48:23 Edema 808934713 Completed 200706/20/2014 RECORDED 08/11/20 08 9:36AM BY BLESSING RICHMOND ON/ADDEN DUM Tyrell Ontiveros MD [address] [facility] [address], [place], [address] , [facility] 3 13:21:39 Pre-surg juan evaluati on Completed 200706/20/2014 RECORDED 08/11/20 08 7:46AM BY BLESSING MONTEMAYOR ON/ADDEN DUM Not Available [facility] 4 14:48:24 Constipa tion 74382293 Completed 200707/10/2014 RECORDED 08/11/20 08 9:36AM BY ROCAEL RICHMONDATI ON/ADDEN DUM Not Available [facility] 4 06:52:00 Pre-surg juan evaluati on Completed 200707/10/2014 RECORDED 08/11/20 08 7:46AM BY CHAD GEIGER, ROCAELATI ON/ADDEN DUM Not Available [facility] 4 06:52:00 Dysmenor yeimi 832980820 Completed 200906/20/2014 RECORDED 01/07/20 10 10:20AM BY ROCAEL TORRESATI ON/ADDEN DUM Not Available [facility] 4 14:48:23 Dysmenor yeimi 868676375 Completed 200907/10/2014 RECORDED 01/07/20 10 10:20AM BY ROCAEL TORRESATI ON/ADDEN DUM Not Available [facility] 4 06:52:00 Family history of breast cancer 923128495 Completed 201106/20/2014 STORY: MOTHER; RECORDED 07/22/20 12 8:36AM BY FANG WADDELL MA, BLESSING ON/ADDEN DUM Not Available [facility] 4 14:48:23 Onychia of toe 309349710 Completed 201106/20/2014 RECORDED 07/22/20 12 8:36AM BY FANG WADDELL MA, BLESSING ON/ADDEN DUM Not Available [facility] 4 14:48:24 Family history of breast cancer 491337698 Completed 201107/10/2014 STORY: MOTHER; RECORDED 07/22/20 12 8:36AM BY FANG WADDELL MA, BLESSING ON/ADDEN DUM Not Available [facility] 4 06:52:00 Onychia of toe 178375547 Completed 201107/10/2014 RECORDED 07/22/20 12 8:36AM BY FANG WADDELL MA, BLESSING ON/ADDEN DUM Not Available [facility] 4 06:52:00 Influenz a vaccine needed 64596704079 06 Completed 201106/20/2014 RECORDED 11/19/20 12 10:58AM BY FANG WADDELL MA, BLESSING ON/ADDEN DUM Not Available [facility] 4 14:48:23 Influenz a vaccine needed 01090111190 06 Completed 201107/10/2014 RECORDED 11/19/20 12 10:58AM BY FANG WADDELL MA, ANNOTATI ON/ADDEN DUM Not Available [facility] 4 06:52:00 Chronic bronchit is Completed 201206/20/2014 RECORDED 05/25/20 13 11:04AM BY FANG WADDELL MA, ANNOTATI ON/ADDEN DUM Not Available [facility] 4 14:48:22 Screenin g for malignan t neoplasm of breast Completed 201206/20/2014 RECORDED 05/25/20 13 11:04AM BY FANG WADDELL MA, ANNOTATI ON/ADDEN DUM Not Available [facility] 4 14:48:23 Screenin g for malignan t neoplasm of colon Completed 201206/20/2014 RECORDED 05/25/20 13 11:04AM BY FANG WADDELL MA, ANNOTATI ON/ADDEN DUM Not Available [facility] 4 14:48:23 Cough 29880458 Completed 201206/20/2014 RECORDED 05/25/20 13 11:04AM BY FANG WADDELL MA, ANNOTATI ON/ADDEN DUM Not Available [facility] 4 14:48:23 Chronic bronchit is Completed 201207/10/2014 RECORDED 05/25/20 13 11:04AM BY FAGN WADDELL MA, ANNOTATI ON/ADDEN DUM Not Available [facility] 4 06:52:00 Screenin g for malignan t neoplasm of breast Completed 201207/10/2014 RECORDED 05/25/20 13 11:04AM BY FANG WADDELL MA, ANNOTATI ON/ADDEN DUM Not Available [facility] 4 06:52:00 Screenin g for malignan t neoplasm of colon Completed 201207/10/2014 RECORDED 05/25/20 13 11:04AM BY FANG WADDELL MA, ANNOTATI ON/ADDEN DUM Not Available [facility] 4 06:52:00 Cough 26574514 Completed 201207/10/2014 RECORDED 05/25/20 13 11:04AM BY FANG WADDELL MA, ANNOTATI ON/ADDEN DUM Not Available [facility] 4 06:52:00 Renewal of prescrip tion Completed 201206/20/2014 RECORDED 11/22/20 13 9:47AM BY FANG WADDELL MA, ANNOTATI ON/ADDEN DUM Not Available [facility] 4 14:48:24 Renewal of prescrip tion Completed 201207/10/2014 RECORDED 11/22/20 13 9:47AM BY FANG WADDELL MA, ANNOTATI ON/ADDEN DUM Not Available [facility] 4 06:52:00 Malaise and fatigue 238499772 Completed 201306/20/2014 RECORDED 01/09/20 14 11:05AM BY LIZ PATIÑO MA, ANNOTATI ON/ADDEN DUM Not Available [facility] 4 14:48:23 Malaise and fatigue 191661864 Completed 201307/10/2014 RECORDED 01/09/20 14 11:05AM BY LIZ PATIÑO MA, ANNOTATI ON/ADDEN DUM Not Available [facility] 4 06:52:00 Screenin g for malignan t neoplasm of cervix Completed 201307/10/2014 RECORDED 05/24/20 14 11:07AM BY FANG WADDELL MA, ANNOTATI ON/ADDEN DUM Dillon Sanders MD [address] [facility] [address], [place], [address] , [facility] 7 10:25:38 Diarrhea 06199764 Completed 201307/10/2014 STORY: PERSISTE NT DIARRHEA WITH RIGHT-SI DED ABDOMINA L PAIN; IMPRESSI ON: NEGATIVE WORKUP WITH CT [facility] RECORDED 05/24/20 14 11:07AM BY FANG WADDELL MA, ANNOTATI ON/ADD ZENOBIA Tatum MA null, [facility] 7 09:38:40 Laborato ry procedur e performe d 709981221 Completed 201307/10/2014 RECORDED 05/24/20 14 11:07AM BY FANG WADDELL MA, BLESSING ON/ADD ZENOBIA Tatum MA null, [facility] 7 09:38:19 Administ ration of diphther ia, pertussi s, and tetanus vaccine Completed 201307/10/2014 RECORDED 05/24/20 14 11:07AM BY FANG WADDELL MA, ANNOTYOVANI ON/ ZENOBIA Tatum MA null, [facility] 7 09:38:31 Hemorrho ids 02092193 Active 2013 Not Available [facility] 4 00:41:15 Supraven tricular tachycar dilan 4516754 Active 2016 Not Available [facility] 4 00:41:15 Osteopen ia 985432503 Completed 201708/23/2018 of hip Dillon Sanders MD [address] [address], [place], [address] , [facility] 9 11:39:01 Dual energy X-ray absorpti ometry of bone of hip joint region result osteopen ia 666209029 Active 2017 Not Available [facility] 4 00:41:15 Osteopen ia 015969796 Active 2018 of hip Not Available [facility] 4 00:41:15 Chronic obstruct salvatore pulmonar y disease 63131731 Active 2019 Not Available [facility] 4 00:41:15 Tomograp hy - chest abnormal 987288731 Active 2020 Not Available [facility] 4 00:41:15 Complex regional pain syndrome 660619887 Active 2020 Not Available [facility] 4 00:41:15 Hyperten kristen valei ng status 121763578 Active 2021 [facility]- Active Not Available [facility] 4 00:41:15 History of deep vein thrombos is 730668590 Active 2022 Not Available [facility] 4 00:41:15 Nodule of lung 884160589 Active 2023 Tyrell Ontiveros MD [address], [facility] [place], [address] , [facility] 4 13:27:48 Mixed urinary incontin ence 940301751 Active 2024 Tyrell Ontiveros MD [address], [facility] [place], [address] , [facility] 5 12:35:27 Notes:Some problems listed i n Documents: #[id number], #[id number] could not be added to this patient's chart. Please review these documents and add these problems to the patient's chart manually as needed. Problem Notes None recorded. Procedures Surgical History Date Name Laterality Status Provider Name and Address Organization Details Recorded Time 06/07/20 25 bronchoscopy and bronchoalveolar lavage completed Tyrell Ontiveros MD [address] [facility] [address] [facility], [place], [address], [facility] 09/26/2025 12:07:54 07/05/20 24 Advanced Care Planning completed Tyrell Ontiveros MD [address], [place], [address], [facility] 07/05/2024 08:24:21 10/28/20 23 Most Recent Mammogram completed Tiffanie Fernandez [facility] 10/28/2023 16:10:31 10/28/20 23 Mammogram Screening completed Tiffanie Fernandez [facility] 10/28/2023 16:10:22 07/03/20 23 Advanced Care Planning completed Tyrell Ontiveros MD [address], [place], [address], [facility] 07/03/2023 13:50:19 03/11/[address] 23 [address] of lungs completed Sharee Steen [facility] 03/18/2023 14:48:38 02/26/20 22 Advanced Care Planning completed Tyrell Ontiveros MD [address], [place], [address], [facility] 01/08/2022 08:35:06 05/24/20 21 Chronic Pain Assessment completed Koki Sampson MA [facility] 05/24/2021 10:08:30 04/12/20 21 Chronic Pain Assessment completed Koki Sampson MA [facility] 04/12/2021 13:00:38 03/15/20 21 Chronic Pain Assessment completed Koki Sampson MA [facility] 03/15/2021 12:46:29 12/21/19 21 Chronic Pain Assessment completed Salina Foster MA [facility] 12/21/2020 12:48:29 09/21/20 20 Chronic Pain Assessment completed Leona Tovar MA [facility] 09/21/2020 10:49:36 09/21/20 20 Six-Item Cognitive Test completed Leona Tovar MA [facility] 09/21/2020 10:51:42 03/09/20 20 Chronic Pain Assessment completed Fang moon MA [facility] 03/09/2020 09:44:34 12/09/19 20 Chronic Pain Assessment completed Fang moon MA [facility] 12/09/2019 10:59:07 09/26/20 19 Chronic Pain Assessment completed Fang moon MA [facility] 09/26/2019 10:53:31 06/06/20 19 Mini-Cog Test completed Fang moon MA [facility] 06/06/2019 13:59:04 06/06/20 19 Chronic Pain Assessment completed Fang Mant[place]-Sony moon MA [facility] 06/06/2019 14:00:08 03/11/20 19 Chronic Pain Assessment completed Fang Mant[place]-Sony moon MA [facility] 03/11/2019 10:26:48 12/13/19 19 Chronic Pain Assessment completed Fang Mant[place]-Sony moon MA [facility] 12/13/2018 15:19:53 11/17/20 18 Chronic Pain Assessment completed Leona Tovar MA [facility] 11/17/2018 13:40:32 08/23/20 18 Chronic Pain Assessment completed Fang moon MA [facility] 08/23/2018 14:29:50 03/18/20 18 Most Recent Bone Density completed Fang moon MA [facility] 05/07/2018 10:45:34 03/18/20 18 Dxa bone density barney vrt fx completed Fang moon MA [facility] 05/07/2018 10:45:27 02/20/20 18 Chronic Pain Assessment completed Fang moon MA [facility] 02/19/2018 14:32:58 11/17/20 17 Chronic Pain Assessment completed Fang Mant[place]-Sony moon MA [facility] 11/17/2017 11:15:01 08/28/20 17 Chronic Pain Assessment completed Fang Mant[place]-Sony moon MA [facility] 08/28/2017 14:01:09 06/01/20 17 Chronic Pain Assessment completed Fang Jose Rafael-Mat CHAD moon [facility] 06/01/2017 11:21:12 12/30/19 17 Chronic Pain Assessment completed Yolanda Tatum MA [facility] 12/30/2016 09:46:02 09/12/20 16 Chronic Pain Assessment completed Negrito Soares [facility] 09/12/2016 11:08:58 06/19/20 16 Chronic Pain Assessment completed Fangjadyn moon MA [facility] 06/19/2016 10:46:58 03/21/20 16 Chronic Pain Assessment completed Fang moon MA [facility] 03/21/2016 09:49:16 03/03/20 16 Date of Last Pap Smear completed Yi Bolivar [facility] 03/12/2016 09:59:10 07/06/20 14 Date of Last Colonoscopy completed Fang moon MA [facility] 06/01/2017 10:03:15 07/06/20 14 Colonoscopy completed Fang moon MA [facility] 05/07/2018 10:46:35 Imaging Results None recorded. Procedure Notes None recorded. Medical Equipment None Reported. Allergies Allergen ID Allergen Name Allergen Category Reaction Reaction Severity Criticality Documentation Date Start Date Code Code System Note Provider Name and Address Organization Details Recorded Time 60569 latex environme nt,medica tion rash Not available Not available 06/13/20142013 48243 91 RxNorm Latex tape Tyrell Ontiveros MD [address] [facility] [address], [facility] CHAD, [address] [place] [address] 3 13:20:27 53404 Product containin g penicilli n (product) medicatio n other Not available Not available 06/13/20142013 50402 8001 SNOMED yeast infec tion CHAD Martinez [facility] 4 10:54:29 64127 adhesive environme nt,medica tion photosens itivity Not available Not available 11/09/2014 CHAD Carl [facility] 1 12:41:23 Medications Name Sig Start Date [...] HOURS active RECORDED 04/03/20 14 1:51PM BY FANG WADDELL MA, OFFICE VISIT; Not Available Not [...] 11/22 completed RECORDED 11/22/20 13 9:53AM BY FANG WADDELL MA, OFFICE VISIT; Not Available Not [...] 01/24 completed RECORDED 01/24/20 11 11:07AM BY FANG WADDELL MA, OFFICE VISIT; Not Available Not [...] completed RECORDED 03/18/20 10 9:59AM BY PATTI COLON ANNOTYOVANI ON/MERCY DUM; Not Available Not Available Not Available betametha sone dipropion ate 0.05 % topical cream TWO TIMES DAILY 01/24 completed RECORDED 01/24/20 11 11:07AM BY FANG WADDELL MA, OFFICE VISIT; Not Available Not [...] 01/24 completed RECORDED 01/24/20 11 11:09AM BY FANG WADDELL MA, OFFICE VISIT;RE PLACED BY JOJO [...] propionat e 50 mcg/actua tion nasal spray,virgen barajas 09/12 completed Not Available Not Available Not [...] completed RECORDED 04/22/20 10 2:20PM BY GENO RAO, ROCAELATI ON/ADDEN DUM; Not Available Not Available Not [...] 01/24 completed RECORDED 01/24/20 11 11:08AM BY FANG WADDELL MA, OFFICE VISIT; Not Available Not [...] Not Available Not Available Vitals Date Recorded Body weight Body mass index (BMI) Body height Heart rate Oxygen saturation Body temperature Systolic And Diastolic Provider Name and Address Organization Details Last Updated DateTime 5 53753.4 2 g 23.6 kg/m2 157.48 cm 63 /min 95 % 97.7 [degF] 109/61 mm[Hg] Fang gunter MA [facility] [place] 5 11:35:42 Social History Question Answer Notes LastModified by Organizat ion Details LastModified Time Tobacco Smoking Status Current Every Day Smoker CHAD [facility] [place] 03/11/2019 10:33:24 Do You Have An Advance Directive? Yes HCP [email or web address] Information not available 08/11/2022 Is Blood Transfusion [...] Have You Served In The ? No [employer]Box Information not available 02/27/2017 Have You Or [...] 08/23/2015 What Is Your Current Pack Years? 20-29packye ars [email or web address] Information not available 08/11/2022 Do You Use Your Seat Belt Or Car Seat Routinely? Yes Information not available 02/25/2022 Seat Belts Used Routinely Yes [email or web address] Information not available 08/11/2022 Are You Sexually Active? No Information not available 08/23/2015 Smoke Alarm In Home Yes [email or web address] Information not available 08/11/2022 Do You Have [...] not available 07/03/2023 General Stress Level Medium [email or web address] Information not available 08/11/2022 Do You Use Sunscreen Routinely? Yes Information not available 08/24/2014 How Many Years Have You Smoked Tobacco? 50 Information not available 02/25/2022 Sex: Unknown Functional Status Question Answer Note LastModified by Organizat ion Details LastModified Time Do you use any illicit or recreational drugs? No [email or web address] Information not available 08/11/2022 Do you or have you ever used any other forms of tobacco or nicotine? No Information not available 08/11/2022 What is your [...] e-cigarettes or vape? Never used electronic cigarettes [email or web address] Information not available 08/11/2022 What is your [...] Father Primary malignant neoplasm of urinary bladder [email or web address] Not available 08/11 13:14:04 Father Coronary arterioscler osis [email or web address] Not available 08/11 13:14:04 Medical History Condition Response Anxiety Disorder Y Skin Problems Y High Cholesterol Y Hospitalizations Y Headaches/Migraines Y Eczema Y Mental Illness Y Hypertension Y Depression Y Chicken Pox Y Gynecological History Statement/Question Response Date of Last Colonoscopy 07/06/2014 Most Recent Bone Density 03/18/2018 Menses Monthly N Date of Last Pap Smear 03/03/2016 Most Recent Mammogram 10/28/2023 Obstetrics History GPAL:G 0 P 0 0 0 0 Immunizations Vaccine Type Date Status Note Provider Nam e and Address Organization Details Recorded Time Influenza, high-dose, trivalent, PF 5 completed Fang Howell MA [facility] 09/26/2025 12:51:05 Influenza, split virus, trivalent, PF 5 completed Not Available [facility] 12/22/2023 00:41:16 Influenza, split virus, trivalent, PF 6 completed Not Available [facility] 12/22/2023 00:41:16 zoster live 7 completed Not Available [facility] 12/22/2023 00:41:16 Tdap 8 completed Not Available [facility] 12/22/2023 00:41:16 Influenza, split virus, quadrivalent, PF 0 completed Not Available [facility] 12/22/2023 00:41:16 pneumococcal polysaccharide PPV23 0 completed Not Available [facility] 12/22/2023 00:41:16 COVID-19, mRNA, LNP-S, PF, 30 mcg/0.3 mL dose 1 completed Not Available [facility] 12/22/2023 00:41:16 COVID-19, mRNA, LNP-S, PF, 30 mcg/0.3 mL dose 1 completed Not Available [facility] 12/22/2023 00:41:16 Pneumococcal conjugate PCV 13 1 completed Not Available [facility] 12/22/2023 00:41:16 Influenza, adjuvanted, quadrivalent, PF 1 completed Not Available [facility] 12/22/2023 00:41:16 Influenza, split virus, trivalent, preservative 2 completed Not Available [facility] 12/22/2023 00:41:16 COVID-19, mRNA, LNP-S, PF, 30 mcg/0.3 mL dose 1 completed Not Available [facility] 12/22/2023 00:41:16 COVID-19, mRNA, LNP-S, bivalent, PF, 30 mcg/0.3 mL dose 2 completed Not Available [facility] 12/22/2023 00:41:16 zoster recombinant 3 completed Not Available [facility] 12/22/2023 00:41:16 zoster recombinant 3 completed CHAD Yeung, [facility] 07/05/2024 13:01:27 Influenza, adjuvanted, quadrivalent, PF 3 completed CHAD Yeung, [facility] 07/05/2024 13:01:27 RSV, recombinant, protein subunit RSVpreF, adjuvant reconstituted, 0.5 mL, PF 3 completed CHAD Yeung, [facility] 07/05/2024 13:01:27 COVID-19, mRNA, LNP-S, PF, andrea-sucrose, 30 mcg/0.3 mL 10/13/202 3 completed CHAD Yeung, [facility] 07/05/2024 13:01:27 Tdap 3 completed CHAD Yeung, [facility] 07/05/2024 13:01:27 Influenza, adjuvanted, trivalent, PF 4 completed Not Available [facility] 09/26/2025 11:10:51 COVID-19, mRNA, LNP-S, PF, andrea-sucrose, 30 mcg/0.3 mL 4 completed Not Available [facility] 09/26/2025 11:10:51 Influenza, split virus, quadrivalent, PF 7 completed Not Available [facility] 12/17/2019 02:22:11 Influenza, split virus, trivalent, PF 4 completed Not Available [facility] 12/17/2019 02:21:56 Pneumococcal conjugate PCV 13 8 completed Not Available [facility] 12/17/2019 02:21:38 Influenza, high-dose, trivalent, PF 8 completed Not Available [facility] 12/17/2019 02:22:14 pneumococcal polysaccharide PPV23 9 completed Not Available [facility] 12/17/2019 02:21:30 Influenza, high-dose, trivalent, PF 9 completed Not Available [facility] 12/17/2019 02:22:09 Influenza, high-dose, quadrivalent, PF 2 completed CHAD Bello, [facility] 08/11/2022 13:47:28 Influenza, split virus, trivalent, preservative 7 completed Not Available [email or web address] 12/22/2023 00:41:16 Influenza, split virus, trivalent, preservative 8 completed Not Available [facility] 12/22/2023 00:41:16 Influenza, split virus, trivalent, preservative 2 completed Not Available [facility] 12/22/2023 00:41:16 Tdap 4 completed Not Available [facility] 12/22/2023 00:41:16 Past Encounters Encounter ID Performer Location Encounter Start Date Encounter Closed Date Diagnosis/Indication Diagnosis SNOMED-CT Code Diagnosis ICD10 Code Diagnosis IMO Codes Diagnosis Note [id number] Tyrell Ontiveros MD Main Office [address] [facility] CHAD GLASER [id number] 09/26/2025 11:07:44 09/26/2025 12:29:58 Adult health examination 075752329 Z00.00 Patient was counseled on healthy diet, [...] depr ession single episode, 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 Stable on sertraline . Supraventr icular tachycardia 2608926 I47.10 stable follows cardiology . Peripheral vascular disease 210945789 I73.9 Still smoking, follows vascular. Chronic ob structive pulmonary disease 23557945 J44.9 Stable on present medication s. Advance di rective discussed with patient 726719468 Z71.89 MOLST and HCP discussed. Nodule of lung 176858845 R91.1 Following at [facility] CT surgery. Tobacco de pendence syndrome 16250319 F17.290 discussed cessation options 4 min counseled of risk of tabaco use and treatment option. Hyperlipidemia 16457623 E78.5 R73.01 Osteopenia 972935392 M85 .80 History of deep vein thrombosis 584387195 Z86.718 Screening for malignant neoplasm of colon 226895898 Z12.11 Fatigue 07792332 R53.83 Screening for malignant neoplasm of breast 659175271 Z12.39 Influenza vaccine needed 3162759826 106 Z23 65 YEARS AND OLDER Bone density finding 385 520776 M85.89 Complex re gional pain syndrome 462911796 G90.50 Complex Regional Pain Syndrome: The patient continues to manage symptoms with pain management support and expresses limitation s in physical activity, affecting daily tasks such as climbing stairs and carrying groceries. - Continued management of complex regional pain syndrome with current pain management team.- [facility] Script for Stair lift placed. Mixed urin brook incontinence 143476989 N39.46 [id number] Will start with urine test.Encou raged pelvic floor exercises, symptoms mild and not bothersome per patient. Overall still can control her bladder and bowel function. Health Concerns Section Related Observation LastModified by Organization Detai ls LastModified Time None Recorded Concern Status LastModified by Organization Details LastModified Time None Recorded Payers Encounter Date Sequence Insurance Name Policy Number Policy [place] Covered Member ID [place] Member ID Guarantor Name 09/26/2025 1 [facility] (MEDICARE REPLACEMENT/ ADVANTAGE - PPO) [id number] 1 Felisa Short [id number] Felisa Short Notes Date Note Type Note Provider Name and Address Organization Details Recorded Time 5 text/html Medicare Annual Wellness VisitReported by [...] personal care independently. Seeing Vascular for PVD. Tyrell Ontiveros MD [address] [address], [place], [address], [facility] 09/26/2025 12:43:49 OBGyn Episode No OBEpisode recorded.
== END 2025-11-02 15:32 | disposition home or self-care (01) ==
LOC: HO.HPHYS 15:10
PROVIDERS: Visit Provider Physical Medicine & Rehabilitation
DX: G89.4 Chronic pain syndrome (principal); G90.529 Complex regional pain syndrome I of unspecified lower limb
CPT/HCPCS: 99213; G2211